=== PATIENT | male | born 2000 ===

== ENCOUNTER 2022-09-03 14:45 | Emergency (ER) | payer OTHER, SELFPAY ==
--- NOTE | ~2022-09-03 | XR_ITS ---
EXAMINATION: RIGHT FOOT AND ANKLE CLINICAL INFORMATION: Pain COMPARISON: None. TECHNIQUE: 3 views of the right foot and 2 views of the right ankle. FINDINGS: Views of the right foot demonstrate anterior dorsal talar beak consistent with previous or recent avulsion injury. Patient is status post previous ankle and foot surgery with one screw seen within the calcaneus and 2 screws seen within the talar bone as well as 2 screws within the distal right fibula as well as multiple metallic densities in the soft tissues anterior to the distal tibia. There is some edema about the surrounding tissues. There are calcific densities present distal to the tip of the fibula likely representing sequela of previous trauma. Ankle mortise appears intact. XR/XR foot RT min 3V IMPRESSION: Status post previous right foot and ankle surgery as described with no old studies available for comparison. Edema about the ankle, most prominent laterally. Talar beak consistent with avulsion injury about the dorsal distal talar bone with some overlying soft tissue. This could represent an acute or chronic injury.
--- NOTE | ~2022-09-03 | CT_ITS ---
EXAMINATION: CT ORBIT WITHOUT CONTRAST CLINICAL INFORMATION: Right eye pain. COMPARISON: None available. TECHNIQUE: Noncontrast multidetector CT imaging examination of the orbits is performed. Axial images and multiplanar reformatted images are reviewed. This CT examination was performed using dose optimization techniques as appropriate, variously including the following: *Automated exposure control *Adjustment of mA and/or kV according to patient size (this includes techniques or standardized protocols for targeted exams where dose is matched to indication/reason for exam; i.e. extremities or head) *Use of iterative reconstruction technique DLP: 172 mGy-cm FINDINGS: The globes and orbital rodriguez, including lamina papyracea, are intact. The orbital apex, optic canals, and retrobulbar fat planes are normal. The extraocular muscles have normal thickness. No imaging evidence of a preseptal or postseptal inflammatory process. The maxilla, mandible and temporomandibular joints are intact. Nasal bones, pterygoid plates and zygomatic arches are normal. There is a small mucous retention cyst along the posterior wall of the right maxillary sinus. Small amount mucus is present within a right anterior ethmoid air cell. Otherwise, the paranasal sinuses are well aerated and without air-fluid levels. No acute sinusitis. The ostiomeatal units are patent. There are no inflammatory changes within the nasal cavity. There is a left-sided aldo bullosa. There is mild right nasal septal deviation. The visualized intracranial compartment is normal. CT/CT orbit BI wo IV con IMPRESSION: No specific source of pain is identified. No evidence of an orbital fracture. Also, no evidence of a preseptal or postseptal inflammatory process.
--- NOTE | ~2022-09-03 | XR_ITS ---
EXAMINATION: RIGHT FOOT AND ANKLE CLINICAL INFORMATION: Pain COMPARISON: None. TECHNIQUE: 3 views of the right foot and 2 views of the right ankle. FINDINGS: Views of the right foot demonstrate anterior dorsal talar beak consistent with previous or recent avulsion injury. Patient is status post previous ankle and foot surgery with one screw seen within the calcaneus and 2 screws seen within the talar bone as well as 2 screws within the distal right fibula as well as multiple metallic densities in the soft tissues anterior to the distal tibia. There is some edema about the surrounding tissues. There are calcific densities present distal to the tip of the fibula likely representing sequela of previous trauma. Ankle mortise appears intact. XR/XR ankle RT min 3V IMPRESSION: Status post previous right foot and ankle surgery as described with no old studies available for comparison. Edema about the ankle, most prominent laterally. Talar beak consistent with avulsion injury about the dorsal distal talar bone with some overlying soft tissue. This could represent an acute or chronic injury.
[2022-09-03 14:52] VITALS: BP 130/78; BP 139/66; PULSE 100; PULSE 90; RESP 18; TEMP 36.7; O2SAT 98; O2SAT 99; BMI 25.5
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
[2022-09-03] MEDS: Acetaminophen 325 MG TABLET 975 MG PO (17:52)
--- NOTE | 2022-09-03 17:53 | PC.NURSE ---
pt medicated per MAY- for 11/05 right eyepain/right ankle pain
== END 2022-09-03 18:50 | disposition home or self-care (01) ==
PROVIDERS: Emergency Provider Emergency Medicine
DX: S05.01XA Injury of conjunctiva and corneal abrasion without foreign body, right eye, initial encounter (principal); S92.151A Displaced avulsion fracture (chip fracture) of right talus, initial encounter for closed fracture; W22.8XXA Striking against or struck by other objects, initial encounter; Y93.89 Activity, other specified; Y92.512 Supermarket, store or market as the place of occurrence of the external cause; Y99.0 Civilian activity done for income or pay
CPT/HCPCS: 70480; 73610; 73630; 99283; 99284

== ENCOUNTER 2022-09-07 16:12 | Emergency (ER) | payer OTHER, SELFPAY ==
--- NOTE | ~2022-09-07 | XR_ITS ---
Examination: XR ankle RT min 3V, XR foot RT min 3V Indication: screws bothering patient Comparison: 09/03/2022 Technique: 3 views of the foot including a lateral view of the foot and ankle with 2 additional views of the right ankle Findings: Postoperative changes is seen. There are 2 intramedullary screws seen through the distal fibula with 2 additional screws seen along the lateral aspect of the talus and additional screw in the calcaneus with multiple small zana along the anterior aspect of the proximal tibia. There is no evidence for hardware failure or surrounding lucency. Bones are normal anatomic alignment. Well-corticated ossifications inferior to the lateral malleolus are again noted. Significant soft tissue swelling is seen laterally about the ankle XR/XR ankle RT min 3V Impression: Postoperative changes to the ankle. Significant soft tissue swelling laterally. No acute fracture or dislocation. No evidence for hardware failure.
--- NOTE | ~2022-09-07 | XR_ITS ---
Examination: XR ankle RT min 3V, XR foot RT min 3V Indication: screws bothering patient Comparison: 09/03/2022 Technique: 3 views of the foot including a lateral view of the foot and ankle with 2 additional views of the right ankle Findings: Postoperative changes is seen. There are 2 intramedullary screws seen through the distal fibula with 2 additional screws seen along the lateral aspect of the talus and additional screw in the calcaneus with multiple small zana along the anterior aspect of the proximal tibia. There is no evidence for hardware failure or surrounding lucency. Bones are normal anatomic alignment. Well-corticated ossifications inferior to the lateral malleolus are again noted. Significant soft tissue swelling is seen laterally about the ankle XR/XR foot RT min 3V Impression: Postoperative changes to the ankle. Significant soft tissue swelling laterally. No acute fracture or dislocation. No evidence for hardware failure.
[2022-09-07 16:17] VITALS: BP 112/70; BP 130/77; PULSE 66; PULSE 69; RESP 18; TEMP 36.6; O2SAT 97; O2SAT 98; BMI 24.4
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
[2022-09-07] MEDS: traMADoL HCL 50 MG TABLET PO (18:01)
== END 2022-09-07 19:21 | disposition home or self-care (01) ==
PROVIDERS: Emergency Provider Emergency Medicine
DX: M25.571 Pain in right ankle and joints of right foot (principal); G89.29 Other chronic pain; Z98.890 Other specified postprocedural states
CPT/HCPCS: 73610; 73630; 99283

== ENCOUNTER 2022-09-24 09:16 | Outpatient (REF) | payer OTHER, SELFPAY ==
--- NOTE | ~2022-09-24 | XR_ITS ---
EXAMINATION: XR ANKLE, RIGHT CLINICAL INFORMATION: Pain. COMPARISON: Radiographs dated 09/07/2022. TECHNIQUE: AP, lateral, and mortise views of the right ankle. FINDINGS: Bony alignment and mineralization are normal. The ankle mortise is intact. No fracture or dislocation is seen. There are orthopedic screws applied to the lateral malleolus and the lateral talus and calcaneus. No hardware failure or loosening is noted. Surgical clips and zana are seen. There is no significant ankle effusion. Boehler's angle is normal. No focal soft tissue gas or foreign body is seen. There is soft tissue swelling adjacent to the lateral malleolus. XR/XR ankle RT min 3V IMPRESSION: There is intact orthopedic hardware applied to the right ankle, as detailed. No fracture, dislocation or right ankle joint effusion is noted.
== END 2022-09-24 09:17 | disposition home or self-care (01) ==
LOC: HO.HOSX 09:16
PROVIDERS: Visit Provider Physician Assistant
DX: S93.401A Sprain of unspecified ligament of right ankle, initial encounter (principal); Z96.9 Presence of functional implant, unspecified
CPT/HCPCS: 73610; 99202

== ENCOUNTER 2022-09-29 20:12 | Emergency (ER) | payer OTHER, SELFPAY ==
[2022-09-29 20:20] VITALS: BP 128/78; PULSE 90; O2SAT 98
== END 2022-09-29 21:27 | disposition left against medical advice (07) ==
LOC: HO.ED 21:25
PROVIDERS: Emergency Provider Emergency Medicine
DX: Z53.21 Procedure and treatment not carried out due to patient leaving prior to being seen by health care provider (principal)

== ENCOUNTER 2022-10-22 08:22 | Outpatient (REF) | payer OTHER, SELFPAY | END 2022-10-22 08:23 | disposition home or self-care (01) | LOC: HO.HOSX 08:22 | PROVIDERS: Visit Provider Physician Assistant | DX: Z13.89 Encounter for screening for other disorder (principal) ==

== ENCOUNTER 2023-02-21 21:24 | Emergency (ER) | payer OTHER, SELFPAY ==
[2023-02-21 21:46] VITALS: BP 112/48; PULSE 83; RESP 16; TEMP 36.7; O2SAT 97; BMI 27.2
== END 2023-02-21 23:36 | disposition left against medical advice (07) ==
LOC: HO.ED 23:35
PROVIDERS: Emergency Provider Emergency Medicine
DX: H01.9 Unspecified inflammation of eyelid (principal)
CPT/HCPCS: 99281

== ENCOUNTER 2023-07-14 14:34 | Outpatient (AMB) | payer OTHER, SELFPAY ==
[2023-07-14 14:44] VITALS: BP 112/70; PULSE 77; TEMP 37.2; O2SAT 98; BMI 26.1
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
== END 2023-07-14 15:14 | disposition home or self-care (01) ==
PROVIDERS: Visit Provider Nurse Practitioner Family
DX: S93.401A Sprain of unspecified ligament of right ankle, initial encounter (principal); Z96.9 Presence of functional implant, unspecified
CPT/HCPCS: 96372; 99203; J1885

== ENCOUNTER 2023-07-14 15:09 | Outpatient (REF) | payer OTHER, SELFPAY ==
--- NOTE | ~2023-07-14 | XR_ITS ---
EXAMINATION: XR ANKLE, RIGHT CLINICAL INFORMATION: Right ankle pain COMPARISON: Radiographs 09/24/2022 TECHNIQUE: AP, lateral, and mortise views of the right ankle. FINDINGS: No acute fracture or malalignment. Postsurgical changes with intact hardware. Anterolateral soft tissue swelling. Small chronic ossification at the tip of the lateral malleolus. Mild talonavicular osteoarthritis. XR/XR ankle RT min 3V IMPRESSION: 1. Anterolateral soft tissue swelling with no acute fracture or malalignment. 2. Postsurgical changes with intact hardware.
== END 2023-07-14 15:10 | disposition home or self-care (01) ==
LOC: HO.HMGCX 15:09
PROVIDERS: Visit Provider Nurse Practitioner Family
DX: S93.401A Sprain of unspecified ligament of right ankle, initial encounter (principal); Z96.9 Presence of functional implant, unspecified
CPT/HCPCS: 73610

== ENCOUNTER 2023-07-21 16:05 | Emergency (ER) | payer OTHER, SELFPAY ==
[2023-07-21 16:13] VITALS: BP 127/84; PULSE 82; O2SAT 100
[2023-07-21 16:16] VITALS: BP 113/68; PULSE 74; RESP 18; TEMP 36.4; O2SAT 97; BMI 23.8
--- NOTE | 2023-07-21 16:16 | ED.GENADULT ---
HPI - General Adult General Chief complaint: Allergic Reaction Stated complaint: ate pear and felt like he was having a reaction Related Data Previous Rx's ?Medication ?Instructions ?Recorded acetaminophen 325 mg capsule 325 mg PO QID PRN pain #30 caps 09/03/22 (Tylenol) ibuprofen 600 mg tablet 600 mg PO Q6H PRN pain #30 tabs 09/03/22 tramadol 50 mg tablet 50 mg PO BID PRN pain #6 tabs 09/07/22 clonidine HCl 0.1 mg tablet 0.1 mg PO DAILY #7 tabs 08/24/23 Allergies Allergy/AdvReac Type Severity Reaction Status Date / Time dog dander [dogs] Allergy Facial Verified 08/24/23 08:54 Swelling PMFSH Past Medical History Medical History Asthma Social History Social History Patient Tobacco Use Status: Never used Tobacco Use of substances other than those prescribed or required for medical reasons: Yes Substance Use Type: Painkillers Substance Use Frequency: Daily Last Used Substance: Days (ago) Advance Directives: No Do you have a plan to hurt others: No Plan Current occupational status: unemployed Current occupation: right hand Physical Exam ED Vital Signs: BMI result Body Mass Index 23.8 Course Course Course Narrative: This is an RME: Additional HPI, ROS, PE not included below will be deferred to primary provider. 22 yo m presents with itchy throat and mouth after eating pear. Denies cp, fevers, chills. Medications Administered Discontinued Medications Generic Name Dose Route Start Last Admin Trade Name Freq PRN Reason Stop Dose Admin Dexamethasone Sodium Phosphate 10 mg 07/21/23 16:18 07/21/23 16:23 Dexamethasone Sod Phosphate 10 Mg/Ml Vial IVPUSH 07/21/23 16:19 10 mg ONCE ONE Administration Diphenhydramine HCl 50 mg 07/21/23 16:18 07/21/23 16:22 Diphenhydramine Hcl 25 Mg Capsule PO 07/21/23 16:19 50 mg ONCE ONE Administration Discharge Plan Discharge Clinical Impression: Eloped from emergency department Patient Disposition: Left W/O Completing Treatment Prescriptions: No Action tramadol 50 mg tablet 50 mg PO BID PRN (Reason: pain) Qty: 6 0RF ibuprofen 600 mg tablet 600 mg PO Q6H PRN (Reason: pain) Qty: 30 0RF acetaminophen [Tylenol] 325 mg capsule 325 mg PO QID PRN (Reason: pain) Qty: 30 0RF clonidine HCl 0.1 mg tablet 0.1 mg PO DAILY Qty: 7 0RF Discharge Date/Time: 07/21/23 18:50
[2023-07-21] MEDS: diphenhydrAMINE HCL 25 MG CAPSULE 50 MG PO (16:22)
[2023-07-21] MEDS: dexAMETHasone sod phosphate 10 MG/ML VIAL IVPUSH (16:23)
== END 2023-07-21 18:50 | disposition left against medical advice (07) ==
PROVIDERS: Emergency Provider Emergency Medicine
DX: K14.8 Other diseases of tongue (principal)
CPT/HCPCS: 99281; 99283; J1100

== ENCOUNTER 2023-08-24 08:45 | Emergency (ER) | payer OTHER, SELFPAY ==
--- NOTE | 2023-08-24 | ECG_ITS ---
Test Reason : overdose Blood Pressure : / mmHG Vent. Rate : 084 BPM Atrial Rate : 084 BPM P-R Int : 140 ms QRS Dur : 092 ms QT Int : 352 ms P-R-T Axes : 061 051 018 degrees QTc Int : 415 ms Normal sinus rhythm Normal ECG No previous ECGs available Referred By: Generic ED Physician Electronically Signed By:MARJORIE PADRON
[2023-08-24 08:52] VITALS: BP 133/85; PULSE 92; RESP 18; TEMP 36.8; O2SAT 99; BMI 26.1
--- NOTE | 2023-08-24 09:10 | ED_ITS ---
HPI - General Adult General Chief complaint: General Medical Stated complaint: overdose ? Time Seen by Provider: 08/24/23 09:10 Source: patient Mode of arrival: ambulatory Limitations: no limitations History of Present Illness ED Provider: Estela Barksdale NP HPI narrative: Patient is a 22-year-old history presenting to the emergency with palpitations and feeling anxious after his second dose of methadone this morning. Patient reports since January of 2023 he has been buying [address] off [address], using 10 to 15 of these per day. The day before yesterday he stopped using them cold turkey. Yesterday he went to [facility] seeking assistance with detox and was started on methadone, given 40 mg in the ED. this morning he went to in clinic and received another 40 mg. Reports that yesterday he felt fine but today he felt anxious, lightheaded, palpitations and ?out of it,? difficulty concentrating. He does report history of anxiety and panic attacks. States yesterday at [facility] he received clonidine with his methadone, and today he did not take any clonidine, unsure if this is related to his symptoms. MD complaint: lightheaded, anxious, palpitations Onset (ago): hour(s) Associated symptoms: diaphoresis and shortness of breath Related Data Previous Rx's ?Medication ?Instructions ?Recorded acetaminophen 325 mg capsule 325 mg PO QID PRN pain #30 caps 09/03/22 (Tylenol) ibuprofen 600 mg tablet 600 mg PO Q6H PRN pain #30 tabs 09/03/22 tramadol 50 mg tablet 50 mg PO BID PRN pain #6 tabs 09/07/22 clonidine HCl 0.1 mg tablet 0.1 mg PO DAILY #7 tabs 08/24/23 Allergies Allergy/AdvReac Type Severity Reaction Status Date / Time dog dander [dogs] Allergy Facial Verified 08/24/23 08:54 Swelling Review of Systems 2 Review of Systems: As per HPI Yes all other systems are reviewed and are negative Constitutional: Constitutional: Reports as per HPI [facility] Past Medical History Medical History Asthma Social History Social History Patient Tobacco Use Status: Never used Tobacco Use of substances other than those prescribed or required for medical reasons: Yes Substance Use Type: Painkillers Substance Use Frequency: Daily Last Used Substance: Days (ago) Advance Directives: No Do you have a plan to hurt others: No Plan Current occupational status: unemployed Current occupation: right hand Physical Exam ED Vital Signs: Vital Signs - 24 hr 08/24/23 08:52 08/24/23 09:34 08/24/23 11:11 Temperature 98.3 F 97.9 F Pulse Rate 92 74 Respiratory Rate 18 18 Blood Pressure 133/85 133/85 109/70 Pulse Oximetry 99 93 Oxygen Delivery Method Room Air Room Air BMI result Body Mass Index 26.1 Vital signs have been reviewed and appear to be correct. Blood pressure normal. Heart rate normal. Respiratory rate normal. Temperature normal. Oxygen saturation normal. Const General: cooperative, healthy appearing and no acute distress Orientation/consciousness: oriented to person, oriented to place, oriented to time and patient oriented x3 Limitations: no limitations HENMT Head: Yes normocephalic and Yes atraumatic Ears: external ears normal General nose exam: Normal external nose present Face and sinus: Yes face symmetric Mouth: oropharynx normal and moist mucous membranes Throat: Yes uvula midline Eyes Pupils: Equal, round and reactive pupils present Neck Neck: Yes normal visual inspection and Yes supple Resp Effort & Inspection: normal respiratory effort and able to speak in complete sentences Auscultation: clear to auscultation bilaterally Cardio Rate: regular rate Rhythm: regular rhythm Heart sounds: S1 normal heart sound present and S2 normal heart sound present GI Palpation (GI): Soft to palpation and nontender Auscultation: normoactive bowel sounds General: Yes no CVA tenderness Back/Spine/Pelvis Back: no CVA tenderness Skin General skin exam: elasticity normal and turgor normal Neuro General: oriented to person, oriented to place, oriented to time, patient oriented x3, moves all extremities, no focal motor deficits and CN's II-XI intact bilaterally Cranial nerves: Yes Equal, round and reactive pupils present Cognition (Neuro): normal cognition Extrem General: Yes full ROM, Yes no pedal edema and Yes no calf tenderness Psych Mental Status: mental status grossly normal Speech and movement: Pressured speech present Affect: Anxious affect present Attitude: cooperative Thought process: Normal thought process present Thought content: suicidality, no homicidality, no hallucinations and No Depressive thoughts present Insight: Fair insight present (Psych) Judgement: Fair judgement present (Psych) Medications Administered Discontinued Medications Generic Name Dose Route Start Last Admin Trade Name Raymond PRN Reason Stop Dose Admin Clonidine HCl 0.1 mg 08/24/23 09:23 08/24/23 09:34 Clonidine Hcl 0.1 Mg Tablet PO 08/24/23 09:24 0.1 mg ONCE ONE Administration Protocol Medical Decision Making Medical Decision Making [facility] Narrative: Patient is a 22-year-old history presenting to the emergency with palpitations and feeling anxious after his second dose of methadone this morning. On exam patient is awake, A+Ox3, VS WNL, afebrile, normal neurological exam without focal deficits, physical exam findings as above. Given reported symptoms and physical exam findings, initial differential includes acute anxiety, adverse medication reaction, withdrawal symptoms. Labs unremarkable. EKG shows normal sinus rhythm. Patient reported that his symptoms improved at [facility] after a dose of clonidine. Patient medicated with clonidine in the emergency department with good improvement in symptoms. Patient seen by Hyacinth Pascal NP from addiction medicine who agrees that symptoms are most likely due to acute anxiety. Will send prescription for short course of clonidine to the pharmacy. Patient instructed to continue following up at methadone clinic as planned. Patient does not have a PCP, given resources to establish care with 1. Return precautions discussed at bedside. Patient verbalized understanding of and agreement with plan. Differential Diagnosis Differential Diagnoses: The differential diagnosis associated with the presentation includes As per [facility] Consult Healthcare Provider Management of the patient was discussed with: Program Support Clerk (Hyacinth Pascal NP) Lab Data [facility] Lab Attestation statement: I reviewed the patient's lab results. As per [facility] 08/24/23 09:40 08/24/23 09:40 Labs: Lab Results 08/24/23 Range/Units 09:40 WBC 8.5 (4.8-10.8) X10*3/uL RBC 4.60 (4.60-5.80) X10*6/uL Hgb 14.2 (14.0-18.0) g/dl Hct 39.6 L (42.0-52.0) % MCV 86.1 (80.0-98.0) fL MCH 30.9 (27.0-33.0) pg MCHC 35.9 (31.0-36.0) g/dl RDW 11.9 (11.0-16.0) % Plt Count 262 (160-400) X10*3/uL MPV 9.5 (9.4-12.4) fL Immature Gran % (Auto) 0.9 H (0.0-0.4) % Neut % (Auto) 53.0 (45-73) % Lymph % (Auto) 30.0 (20-40) % [place] % (Auto) 12.0 H (2-11) % Eos % (Auto) 3.2 (0-4) % Baso % (Auto) 0.9 (0-2) % Lymph # (Auto) 2.6 (1.2-4.9) X10*3/uL [place] # (Auto) 1.0 (0.1-1.2) X10*3/uL Eos # (Auto) 0.3 (0.0-0.4) X10*3/uL Baso # (Auto) 0.1 (0.0-0.2) X10*3/uL Abs Immat Gran (auto) 0.08 H (0.00-0.03) X10*3/uL Absolute Neuts (auto) 4.5 (2.0-8.3) x10*3/uL Absolute Nucleated RBC 0.000 (0.0-0.012) X10*3/uL Nucleated RBC % (auto) 0.0 (0.0-0.2) /100WBC Sodium 139 (135-145) mmol/L Potassium 4.0 (3.3-5.1) mmol/L Chloride 109 H (96-108) mmol/L Carbon Dioxide 23 (22-29) mmol/L Anion Gap 11 L (12-20) BUN 19 H (9-16) mg/dL Creatinine 0.91 (0.5-1.4) mg/dL Estim Creat Clear Calc 121.0 Estimated GFR > 60 Random Glucose 88 (60-115) mg/dL Calcium 9.0 (8.4-10.2) mg/dL Total Bilirubin 0.3 (0.0-1.0) mg/dL AST 24 (5-37) U/L ALT 24 (0-40) U/L Alkaline Phosphatase 83 (39-117) U/L Troponin I High Sens < 2.7 (<3.5-35.0) ng/L Total Protein 6.9 (6.5-8.0) g/dL Albumin 4.4 (3.5-5.0) g/dL Independent Interpretation I performed an independent interpretation of an: EKG (normal sinus rhythm, rate 84bpm, normal pr interval and QTc, no evidence of STEMI) External Record Review External record reviewed: Inpatient record, Office record and Outpatient record Prescription Management I considered prescription management with: Other Discharge Plan Discharge Clinical Impression: Acute anxiety Patient Disposition: Home, Self-Care Instructions: Panic Disorder (ED), Anxiety (ED) Additional Instructions: You were evaluated in the emergency department today for symptoms that were likely due to acute anxiety. Your evaluation did not show evidence of conditions requiring emergent medical treatment at this time. You are being prescribed clonidine for anxiety which you can use as prescribed. Please keep your appointment tomorrow with the and methadone Clinic. You will be seeing the doctor there on . It is also important that you establish care with a primary care provider. Please use the resources provided to set this up. Return to the emergency department if you develop chest pain, difficulty breathing or any other concerning symptoms. Prescriptions: New clonidine HCl 0.1 mg tablet 0.1 mg PO DAILY Qty: 7 0RF No Action tramadol 50 mg tablet 50 mg PO BID PRN (Reason: pain) Qty: 6 0RF ibuprofen 600 mg tablet 600 mg PO Q6H PRN (Reason: pain) Qty: 30 0RF acetaminophen [Tylenol] 325 mg capsule 325 mg PO QID PRN (Reason: pain) Qty: 30 0RF Stand Alone Forms: Work/School Release Print Language: Kiswahili
[2023-08-24 09:34] VITALS: BP 133/85
[2023-08-24] MEDS: cloNIDine HCL 0.1 MG TABLET PO (09:34)
[2023-08-24 09:43] LABS: MANUAL DIFF FLAG NO
[2023-08-24 09:44] LABS: Basophils Absolute Auto 0.1 X10*3/uL (0.0-0.2); Basophils Percent Auto 0.9 % (0-2); Eosinophils Absolute Auto 0.3 X10*3/uL (0.0-0.4); Eosinophils Percent Auto 3.2 % (0-4); Hematocrit 39.6 % (42.0-52.0); Hemoglobin 14.2 g/dl (14.0-18.0); Imm Gran Abs Auto 0.08 X10*3/uL (0.00-0.03); Imm Gran Pct Auto 0.9 % (0.0-0.4); Lymphocytes Absolute Auto 2.6 X10*3/uL (1.2-4.9); Mean Corpuscular HGB Conc 35.9 g/dl (31.0-36.0); Mean Corpuscular Hemoglobin 30.9 pg (27.0-33.0); Mean Corpuscular Volume 86.1 fL (80.0-98.0); Mean Platelet Volume 9.5 fL (9.4-12.4); Neutrophils Absolute Auto 4.5 x10*3/uL (2.0-8.3); Platelet Count 262 X10*3/uL (160-400); Red Cell Distribution Width 11.9 % (11.0-16.0); White Blood Count 8.5 X10*3/uL (4.8-10.8)
[2023-08-24 09:59] LABS: Alanine Aminotransferase 24 U/L (0-40); Albumin Level 4.4 g/dL (3.5-5.0); Alkaline Phosphatase 83 U/L (39-117); Anion Gap 11 (12-20); Aspartate Amino Transferase 24 U/L (5-37); Bilirubin Total 0.3 mg/dL (0.0-1.0); Blood Urea Nitrogen 19 mg/dL (9-16); Carbon Dioxide 23 mmol/L (22-29); Chloride 109 mmol/L (96-108); Estimated Glomerular Filt Rate > 60; Glucose Random 88 mg/dL (60-115); Sodium 139 mmol/L (135-145); Total Protein 6.9 g/dL (6.5-8.0)
[2023-08-24 10:12] LABS: Troponin-I High Sensitivity < 2.7 ng/L (<3.5-35.0)
[2023-08-24 11:11] VITALS: BP 109/70; PULSE 74; RESP 18; TEMP 36.6; O2SAT 93
[2023-08-24 11:23] VITALS: BP 109/70; PULSE 74; RESP 18; TEMP 36.6; O2SAT 98
== END 2023-08-24 11:28 | disposition home or self-care (01) ==
PROVIDERS: Registered Nurse Emergency; Emergency Provider Emergency Medicine; PCP Pediatrics
DX: R00.2 Palpitations (principal); F41.9 Anxiety disorder, unspecified; F11.90 Opioid use, unspecified, uncomplicated
CPT/HCPCS: 36415; 80053; 84484; 85025; 93005; 99283; 99284

== ENCOUNTER → 2023-08-24 09:01 | Outpatient (BNV) | payer OTHER, SELFPAY | PROVIDERS: Emergency Provider Emergency Medicine; PCP Pediatrics; Visit Provider Internal Medicine | DX: R00.2 Palpitations (principal) | CPT/HCPCS: 93010 ==

== ENCOUNTER 2024-02-17 09:25 | Outpatient (AMB) | payer MEDICARE, SELFPAY ==
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
[2024-02-17 09:39] VITALS: BP 104/70; PULSE 73; O2SAT 99; BMI 28.0
== END 2024-02-17 10:46 | disposition home or self-care (01) ==
PROVIDERS: PCP Physician Assistant Medical; Visit Provider Physician Assistant Medical
DX: M25.571 Pain in right ankle and joints of right foot (principal); Z98.890 Other specified postprocedural states; R73.9 Hyperglycemia, unspecified; K59.00 Constipation, unspecified; J32.9 Chronic sinusitis, unspecified; K92.1 Melena; F43.10 Post-traumatic stress disorder, unspecified; F41.9 Anxiety disorder, unspecified; F32.A Depression, unspecified; Z76.5 Malingerer [conscious simulation]

== ENCOUNTER → 2024-02-17 09:25 | Outpatient (BNVA) | payer MEDICARE, SELFPAY | PROVIDERS: PCP Physician Assistant Medical; Visit Provider Physician Assistant Medical | DX: M25.571 Pain in right ankle and joints of right foot (principal); E11.65 Type 2 diabetes mellitus with hyperglycemia; F41.9 Anxiety disorder, unspecified; F32.A Depression, unspecified; F43.10 Post-traumatic stress disorder, unspecified; K59.00 Constipation, unspecified; J32.9 Chronic sinusitis, unspecified; K92.1 Melena; Z76.5 Malingerer [conscious simulation]; Z98.890 Other specified postprocedural states | CPT/HCPCS: 36415; 80053; 83036; 84443; 85025; 96127; 96160; 99202 ==

== ENCOUNTER 2024-02-17 11:11 | Outpatient (REF) | payer MEDICARE, SELFPAY ==
[2024-02-17 14:13] LABS: MANUAL DIFF FLAG NO
[2024-02-17 14:19] LABS: Basophils Absolute Auto 0.1 X10*3/uL (0.0-0.2); Basophils Percent Auto 0.7 % (0-2); Eosinophils Absolute Auto 0.7 X10*3/uL (0.0-0.4); Eosinophils Percent Auto 8.1 % (0-4); Hematocrit 38.4 % (42.0-52.0); Hemoglobin 13.3 g/dl (14.0-18.0); Imm Gran Abs Auto 0.04 X10*3/uL (0.00-0.03); Imm Gran Pct Auto 0.4 % (0.0-0.4); Lymphocytes Absolute Auto 1.8 X10*3/uL (1.2-4.9); Lymphocytes Percent Auto 20.6 % (20-40); Mean Corpuscular HGB Conc 34.6 g/dl (31.0-36.0); Mean Corpuscular Hemoglobin 27.7 pg (27.0-33.0); Mean Corpuscular Volume 79.8 fL (80.0-98.0); Mean Platelet Volume 9.9 fL (9.4-12.4); Monocytes Absolute Auto 0.8 X10*3/uL (0.1-1.2); Neutrophils Absolute Auto 5.5 x10*3/uL (2.0-8.3); Neutrophils Percent Auto 61.2 % (45-73); Platelet Count 313 X10*3/uL (160-400); Red Blood Count 4.81 X10*6/uL (4.60-5.80); Red Cell Distribution Width 12.3 % (11.0-16.0); White Blood Count 8.9 X10*3/uL (4.8-10.8)
[2024-02-17 14:31] LABS: Estimated Average Glucose 103 mg/dL; Hemoglobin A1C 117.7604 umol/L; Hemoglobin A1c % 5.2 % (<6.0)
[2024-02-17 14:46] LABS: Alanine Aminotransferase 36 U/L (0-40); Albumin Level 4.1 g/dL (3.5-5.0); Alkaline Phosphatase 105 U/L (39-117); Anion Gap 12 (12-20); Aspartate Amino Transferase 26 U/L (5-37); Bilirubin Total 0.2 mg/dL (0.0-1.0); Blood Urea Nitrogen 10 mg/dL (9-16); Calcium 9.9 mg/dL (8.4-10.2); Carbon Dioxide 27 mmol/L (22-29); Chloride 103 mmol/L (96-108); Estimated Glomerular Filt Rate > 60; Glucose Random 81 mg/dL (60-115); Potassium 3.8 mmol/L (3.3-5.1); Sodium 138 mmol/L (135-145); Total Protein 7.1 g/dL (6.5-8.0)
[2024-02-17 15:05] LABS: TSH reflex Free T4 1.57 uIU/mL (0.32-4.0)
== END 2024-02-17 11:12 | disposition home or self-care (01) ==
LOC: HO.WFDLDS 11:11
PROVIDERS: Visit Provider Physician Assistant Medical
DX: Z13.89 Encounter for screening for other disorder (principal)
CPT/HCPCS: 36415; 80053; 83036; 84443; 85025

== ENCOUNTER 2024-02-29 11:10 | Outpatient (AMB) | payer MEDICARE, SELFPAY ==
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
[2024-02-29 11:17] VITALS: BP 114/56; PULSE 83; O2SAT 99; BMI 28.8
== END 2024-02-29 11:53 | disposition home or self-care (01) ==
PROVIDERS: PCP Pediatrics; Referring Provider Physician Assistant Medical; Visit Provider Nurse Practitioner Family
DX: Z96.9 Presence of functional implant, unspecified (principal); M25.571 Pain in right ankle and joints of right foot; Z98.890 Other specified postprocedural states
CPT/HCPCS: 99204; G2211

== ENCOUNTER → 2024-02-29 11:10 | Outpatient (BNVA) | payer MEDICARE, SELFPAY | PROVIDERS: PCP Pediatrics; Referring Provider Physician Assistant Medical; Visit Provider Nurse Practitioner Family | DX: M25.571 Pain in right ankle and joints of right foot (principal); Z96.9 Presence of functional implant, unspecified; Z98.890 Other specified postprocedural states | CPT/HCPCS: 99202 ==

== ENCOUNTER 2024-03-30 08:58 | Outpatient (AMB) | payer MEDICARE, MEDICAID, SELFPAY ==
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
[2024-03-30 09:10] VITALS: BP 134/74; PULSE 82; RESP 14; O2SAT 97; BMI 29.3
== END 2024-03-30 09:51 | disposition home or self-care (01) ==
PROVIDERS: PCP Physician Assistant Medical; Visit Provider Physician Assistant Medical
DX: M25.571 Pain in right ankle and joints of right foot (principal); Z98.890 Other specified postprocedural states; K59.00 Constipation, unspecified; J32.9 Chronic sinusitis, unspecified; K92.1 Melena; F43.10 Post-traumatic stress disorder, unspecified; F41.9 Anxiety disorder, unspecified; F32.A Depression, unspecified

== ENCOUNTER → 2024-03-30 08:58 | Outpatient (BNVA) | payer MEDICARE, SELFPAY | PROVIDERS: PCP Physician Assistant Medical; Visit Provider Physician Assistant Medical | DX: M25.571 Pain in right ankle and joints of right foot (principal); K59.00 Constipation, unspecified; J32.9 Chronic sinusitis, unspecified; K92.1 Melena; F43.10 Post-traumatic stress disorder, unspecified; F41.9 Anxiety disorder, unspecified; F32.A Depression, unspecified; F11.20 Opioid dependence, uncomplicated; Z87.81 Personal history of (healed) traumatic fracture; Z98.890 Other specified postprocedural states | CPT/HCPCS: 96127; 99212 ==

== ENCOUNTER 2024-04-09 13:00 | Emergency (ER) | payer MEDICARE, MEDICAID, SELFPAY ==
--- NOTE | ~2024-04-09 | XR_ITS ---
CLINICAL HISTORY: constipation 1 view abdomen Comparison: None Findings: No pneumoperitoneum or pneumatosis. No abnormal calcifications. No acute fractures. IMPRESSION: Severe fecal retention within the colon. This document has been electronically signed by: Mercedes Hernandez MD on 04/09/2024 14:26:12
--- OUTSIDE RECORDS SUMMARY | 2024-04-09 13:02 | XMS_ITS | Continuity of Care Document ---
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 Name Role Phone Yehuda Burger BA Unavailable Unavailable Allergies, Adverse Reactions, Alerts Substance Reaction Status Criticality No Known Allergies Active No Inform ation Medications Medication Instructions Dosage Effective Dates (start - stop) Status Comments lithium carbonate ER 450 mg tablet,extended release take 1 tabs by oral route every bedtime 1 tabs - Active escitalopram 10 mg tablet take 1 tablet by oral route every day in the morning - Active Do not dispense to patient, please hold for VNA or patients father Depakote ER 500 mg tablet,extended release take [...] Location Reason(s) For Visit Diagnoses Date Provider [facility], [address] [place] [address], [address], tel:[phone] OP A Bris 225 NMS No Information Tao Blackman. [address] [place] [address], [address] [place] [address], . tel:[phone], [address] [place] [address], [facility], tel:[phone] OP A Wtb[facility] [address] Medication Management (chief complaint)Ps ychiatric (chief complaint) Personal hx of traumatic brain injury Иван Candelarian. [address] [place] [address], [address] [place] [address], [place]. tel:[phone] [employer], [address] [place] [address], [facility], [place] tel:[phone] [facility] [address] MAT (*Medication Assisted [place]) (chief complaint) Encounter for screening for depression [place]. [address] [place] [address], [address] [place] [address], . tel:[phone] [employer], [address] [place] [address], [facility], tel:[phone] IOP A [facility] [address] Medication Management (chief complaint)Ps ychiatric (chief complaint) Personal hx of traumatic brain injury Иван Candelarian. [address] [place] [address], [address] [place] [address], [place]. tel:[phone] [employer], [address] [place] [address], [facility], tel:[phone] IOP A [facility] [address] Rupesh Ashley. [address] [place] [address], [address] [place] [address], [place]. tel:[phone] [employer], [address] [place] [address], [facility], [place] tel:[phone] IOP A [facility] [address] Gilberto Carter. [address] [place] [address], [address] [place] [address], [place]. tel:[phone], [address] [place] [address], [facility], [place] tel:[phone] IOP A [facility]tb[facility] [address] Flaco Enriquez. [address] [place] [address], [address] [place] [address], [place]. tel:[phone] [facility], [address] [place] [address], [facility], tel:[phone] IOP A [facility] [address] Medication Management (chief complaint)Ps ychiatric (chief complaint) Иван Rodriguez. [address] [place] [address], [address] [place] [address], [place]. tel:[phone] [facility], [address] [place] [address], [facility], tel:[phone] IOP A [facility] [address] Rupesh Ashley. [address] [place] [address], [address] [place] [address], [place]. tel:[phone] [facility], [address] [place] [address], [facility], tel:[phone] IOP [facility] [address] Cassi Edward. [address] [place] [address], [address] [place] [address], [place]. tel:[phone] [facility], [address] [place] [address], [facility], tel:[phone] IOP A [facility] [address] Flaco Enriquez. [address] [place] [address], [address] [place] [address], [place]. tel:[phone] [facility], [address] [place] [address], [facility], [place] tel:[phone] IOP A [facility] [address] Rupesh Ashley. [address] [place] [address], [address] [place] [address], [place]. tel:[phone] [facility], [address] [place] [address], [facility], [place] tel:[phone] [facility] [address] MAT (*Medication Assisted [place]) (chief complaint) Body mass index (BMI) 23.0-23.9, adult Yashira Lucero. [address] [place] [address], [address] [place] [address], . tel:[phone], [address] [place] [address], [facility], tel:[phone] OP A [facility] [address] Medication Management (chief complaint)Ps ychiatric (chief complaint) Personal hx of traumatic brain injury Иван Rodriguez. [address] [place] [address], [address] [place] [address], [place]. tel:[phone], [address] [place] [address], [facility], tel:[phone] IOP A [facility]tb[facility] [address] [facility]. [address] [place] [address], [address] [place] [address], [place]. tel:[phone], [address] [place] [address], [facility], tel:[phone] IOP A [facility]tb[facility] [address] [facility]. [address] [place] [address], [address] [place] [address], [place]. tel:[phone], [address] [place] [address], [facility], tel:[phone] IOP A [facility] [address] Telemaque Chelsey. [address] [place] [address], [address] [place] [address], [place]. tel:[phone] [employer], [address] [place] [address], [facility], [place] tel:[phone] [facility] [address] office visit (chief complaint)HEMALATHA Castro (*Medication Assisted [place]) (chief complaint) Encounter for screening for other metabolic disordersEncounter for STD screeningBody mass index (BMI) 22.0-22.9, adult Yashira Barker. [address] [place] [address], [address] [place] [address], [place]. tel:[phone] [facility], [address] [place] [address], [facility], tel:[phone] IOP A [facility] [address] Nadir Chacko. [address] [place] [address], [address] [place] [address], [place]. tel:[phone] [facility], [address] [place] [address], [facility], tel:[phone] IOP A [facility] [address] Nadir Chacko. [address] [place] [address], [id number], [place]. tel:[phone] [facility], [address] [place] [address], [facility], tel:[phone] OP A [facility]tb[facility] [address] Rajinder Mehta. [address] [place] [address], [address] [place] [address], [place]. tel:[phone] As per patient privacy policy some of the clinical information may not be visible. Family History Family Member Type Diagnosis Age At Onset No Information Payers Payer name Insurance type Covered republican ID Kathy hendersonpeggy(s) Chrystal Zainab [id number] Social History Type Description Quantity Date Captured Comments Alcohol Use Details Unknown Caffeine Use Details Unknown Tobacco Use Status No Information Smoking Status No Information Sex Male Sexual Orientation Straight or heterosexual Jun Gender Identity Male Chief Complaint And Reason For Visit No Information Plan Of Treatment Date Type Action Status Goal Depression scree libia. Due on due Goal Health Literacy Assessment. Due on due Goal Unhealthy drug u se screening. Due on due Goal Td vaccine. Due on due Goal Influenza vaccine. Due on due Goal HIV 1/0/2 Ag/Ab w/Rflx. Due on due Goal Hepatitis C scre ening. Due on due Goal Tdap. Due on due Goal HPV (1st). Due on due Goal Fluoride varnish application. Due on due Goal Health Literacy Assessment. Due on due Goal Hepatitis C scre ening. Due on due Goal Unhealthy drug u [...] Influenza vaccine. Due on due Goal HPV (). Due on due Goal Fluoride varnish application. Due on due Goal Health Literacy Assessment. Due on due Goal Unhealthy drug u se screening. Due on due Goal Tdap. Due on due Goal Health Literacy Assessment. Due on due Goal Fluoride varnish application. Due on due Goal Unhealthy drug u se screening. Due on due Goal Influenza vaccine. Due on due Goal HIV 1/0/2 Ag/Ab [...] Fluoride varnish application. Due on due Goal HPV (1st). Due [...] due Goal Tdap. Due on due Goal HPV (1st). Due [...] u se screening. Due on due Goal Influenza vaccine. Due [...] Fluoride varnish application. Due on due Goal HPV (1st). Due on due Goal Depression scree libia. Due on due Goal Influenza vaccine. Due on due Goal HIV 1/0/2 Ag/Ab [...] u se screening. Due on due Goal Influenza vaccine. Due on due Goal Unhealthy drug u se screening. Due on due Goal Health Literacy Assessment. Due on due Goal Fluoride varnish application. Due on due Goal Hepatitis C scre ening. Due on due Goal Influenza vaccine. Due on due Goal HIV 1/0/2 Ag/Ab w/Rflx. Due on due Goal Tdap. Due on due Goal Depression scree libia. Due on due Goal HPV (1st). Due on due Goal Lifestyle education regardin g diet completed Goal Tdap. Due on due Goal HPV (1st). Due [...] Goal HPV (1st). Due on due Goal HPV (1st). Due on due Goal Influenza vaccine. Due on due Goal Depression scree libia. Due on due Goal Fluoride varnish application. Due on due Goal Unhealthy drug u se screening. Due on due Goal Health Literacy Assessment. Due on due Goal HIV 1/0/2 Ag/Ab w/Rflx. Due on due Goal Tdap. Due on due Goal Hepatitis [...] Fluoride varnish application. Due on due Goal Lifestyle education regardin g diet completed Goal Fluoride varnish application. Due on due [...] Goal HPV (). Due on due Goal Depression scree libia. Due on due Goal Fluoride varnish application. Due on due Goal Influenza vaccine. Due on Ap due Goal Health Literacy Assessment. Due on due Goal Dietary manageme nt education, guidance, and counseling ordered Goal Lifestyle education regardin g diet ordered Goal Lifestyle education regardin g diet ordered Goal Dietary manageme nt education, guidance, and counseling ordered Goal Lifestyle education regardin g diet ordered Goal Lifestyle education regardin g diet ordered Goal Lifestyle education regardin g diet ordered Referral Ordered: Referrals: Neuropsychology - Adult [...] were called and he was taken to [facility]. He was released a few hours [...] that he forgot to get an updated Itmann level. He states that the [facility]NA gives the med sleeve to his father and his father admins the PM meds to him. This singer songwriter is requesting increase frequency to BID temporarily [...] this would not be appropriate for this singer songwriter to treat at this time until he [...] assess patient safety, status and medication efficacy. Itmann level ordered today and to be re [...] bearing.Patient was in psych unit twice in [place] in Apr 2021, most recent was suicide [...] until 04/2021 when he was hospitalized n [facility]. He states that he has been compliant [...] currently enrolled in the IOP program at [facility] and he identified this as a major [...] in MATx tx and receiving Naltrexone/Vivitrol through [facility]. He reported to this singer songwriter that he feels unstable . Patient reports [...] slit my throat . Denies an intent. Client Professional Pepe joined appointment to assist in evaluation [...] term doses of medications (as reviewed with Gut Puller, Dr. Chris), patients father to picker tender medications from the pharmacy, keep them locked [...] of Depakote 250 mg BID, sent to [facility], not picked up by patient or father as father was unable to come to [facility]. TW spoke with patients father who requested that medications be sent to [facility] on [address] in [place]. TW Advised patients father, Urbano, (KAYLEEN on file) that after pharmacology review of this case with Gut Puller, Dr. Chris, medication regimen would be as follows: 5 days worth of Lexapro 10 mg once daily in the AM, [address] 250 mg once daily in the AM, 5 days worth of Itmann ER 300 mg once daily at bedtime. Patients father verbalized understanding of medication regimen. Patients father in agreement with, and verbalized understanding of, the following plan: father to picker tender medications from the pharmacy, keep them locked [...] to Body mass index [BMI] 22.0-22.9, adult Lifestyle education regarding di et Related to Body mass index [BMI] 22.0-22.9, adult As per patient privacy policy some of the clinical information may not be visible. Assessments Type Assessment Date No Information
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
[2024-04-09 13:17] VITALS: BP 113/74; PULSE 94; RESP 18; TEMP 36.6; O2SAT 99; BMI 28.9
[2024-04-09 13:44] LABS: MANUAL DIFF FLAG NO
[2024-04-09 13:45] LABS: Basophils Absolute Auto 0.1 X10*3/uL (0.0-0.2); Eosinophils Absolute Auto 0.8 X10*3/uL (0.0-0.4); Eosinophils Percent Auto 7.5 % (0-4); Hematocrit 41.8 % (42.0-52.0); Hemoglobin 14.5 g/dl (14.0-18.0); Imm Gran Abs Auto 0.04 X10*3/uL (0.00-0.03); Imm Gran Pct Auto 0.4 % (0.0-0.4); Lymphocytes Absolute Auto 2.4 X10*3/uL (1.2-4.9); Lymphocytes Percent Auto 23.5 % (20-40); Mean Corpuscular HGB Conc 34.7 g/dl (31.0-36.0); Mean Corpuscular Hemoglobin 27.7 pg (27.0-33.0); Mean Corpuscular Volume 79.9 fL (80.0-98.0); Mean Platelet Volume 9.2 fL (9.4-12.4); Monocytes Percent Auto 9.6 % (2-11); Platelet Count 294 X10*3/uL (160-400); Red Blood Count 5.23 X10*6/uL (4.60-5.80); Red Cell Distribution Width 12.7 % (11.0-16.0); White Blood Count 10.3 X10*3/uL (4.8-10.8)
[2024-04-09 13:59] LABS: Alanine Aminotransferase 21 U/L (0-40); Albumin Level 4.3 g/dL (3.5-5.0); Alkaline Phosphatase 93 U/L (39-117); Anion Gap 10 (12-20); Aspartate Amino Transferase 25 U/L (5-37); Bilirubin Total 0.3 mg/dL (0.0-1.0); Blood Urea Nitrogen 15 mg/dL (9-16); Calcium 9.4 mg/dL (8.4-10.2); Carbon Dioxide 26 mmol/L (22-29); Chloride 107 mmol/L (96-108); Creatinine Clr Calc Pharmacy 129.9; Estimated Glomerular Filt Rate > 60; Glucose Random 91 mg/dL (60-115); Lipase 20 U/L (8-78); Potassium 4.2 mmol/L (3.3-5.1); Sodium 139 mmol/L (135-145); Total Protein 7.4 g/dL (6.5-8.0)
[2024-04-09 19:34] VITALS: BP 114/65; PULSE 80; RESP 18; TEMP 36.6; O2SAT 98
[2024-04-09 20:00] VITALS: BP 132/84; PULSE 82; RESP 16; TEMP 36.8; O2SAT 96
[2024-04-09] MEDS: Milk of Magnesia 30 ML ORAL.SUSP PO (20:28)
[2024-04-09] MEDS: Docusate Sodium 100 MG CAPSULE 200 MG PO (20:28)
[2024-04-09 20:56] VITALS: BP 132/84; PULSE 82; RESP 16; TEMP 36.8; O2SAT 96
== END 2024-04-09 20:57 | disposition home or self-care (01) ==
PROVIDERS: Nurse Practitioner Family; Emergency Provider Emergency Medicine Emergency Medical Services; PCP Physician Assistant Medical
DX: K59.00 Constipation, unspecified (principal); F11.10 Opioid abuse, uncomplicated; R10.2 Pelvic and perineal pain; Z79.899 Other long term (current) drug therapy
CPT/HCPCS: 36415; 74018; 80053; 83690; 85025; 99284

== ENCOUNTER → 2024-04-09 13:19 | Outpatient (BNV) | payer MEDICARE, MEDICAID, SELFPAY | PROVIDERS: PCP Physician Assistant Medical; Visit Provider Radiology Diagnostic Radiology | DX: K56.41 Fecal impaction (principal) | CPT/HCPCS: 74018 ==

== ENCOUNTER 2024-04-27 06:32 | Outpatient (REF) | payer MEDICARE, MEDICAID, SELFPAY ==
--- OUTSIDE RECORDS SUMMARY | 2024-04-27 06:34 | XMS_ITS | Continuity of Care Document ---
Author Organization [facility] Address [address] [place] [address] Phone Care Team Providers Care Lead Python Developer Name Role Phone Yehuda Burger BA Unavailable Unavailable Allergies, Adverse Reactions, Alerts Substance Reaction Status Criticality No Known Allergies Active No Inform ation Medications Medication Instructions Dosage Effective Dates (start - stop) Status Comments Depakote ER 250 mg tablet,extended release take 1 tab by oral route every bedtime in addition to 500 mg tablet for a TDD of 750 mg - Active ziprasidone 40 mg capsule take 1 capsule by oral route 2 times every day with food 40 MG - Active Depakote ER 500 mg tablet,extended release take 1 tablet by mouth once daily at bedtime with 250 mg tablet for a TDD of 750 mg - Active escitalopram 10 mg tablet take 1 tablet by oral route every day in the morning - Active Do not dispense to patient, please hold for VNA or patients father lithium carbonate ER 450 mg tablet,extended release take 1 tabs by oral route every bedtime 1 tabs - Active Vivitrol 380 mg intramuscular suspension,extended release inject 4 milliliter by intramuscular route every 4 weeks 380 MG - Active Advance Directives Directive Yes / No Effective Date File Name No Information Encounters Encounter Description Practice Location Reason(s) For Visit Diagnoses Date Provider [facility], [address] [place] [address], [id number], tel:[phone] OP A Bris 225 NMS No Information Tao Blackman. [address] [place] [address], [address] [place] [address], . tel:[phone], [address] [place] [address], [facility], tel:[phone] OP A [facility] [address] Medication Management (chief complaint)Ps ychiatric (chief complaint) Personal hx of traumatic brain injury Иван Candelarian. [address] [place] [address], [address] [place] [address], [place]. tel:[phone], [address] [place] [address], [facility], [place] tel:[phone] [facility] [address] MAT (*Medication Assisted [place]) (chief complaint) Encounter for screening for depression [facility]. [address] [place] [address], [address] [place] [address], . tel:[phone], [address] [place] [address], [facility], tel:[phone] IOP [facility] [address] Medication Management (chief complaint)Ps ychiatric (chief complaint) Personal hx of traumatic brain injury Иван Candelarian. [address] [place] [address], [address] [place] [address], [place]. tel:[phone] [employer], [address] [place] [address], [facility], tel:[phone] IOP [facility] [address] Rupesh Ashley. [address] [place] [address], [address] [place] [address], [place]. tel:[phone], [address] [place] [address], [facility], [place] tel:[phone] IOP [facility] [address] Gilberto Carter. [address] [place] [address], [address] [place] [address], [place]. tel:[phone], [address] [place] [address], [facility], [place] tel:[phone] IOP [facility] [address] Flaco Enriquez. [address] [place] [address], [address] [place] [address], [place]. tel:[phone], [address] [place] [address], [facility], tel:[phone] IOP [facility] [address] Medication Management (chief complaint)Ps ychiatric (chief complaint) Иван Rodriguez. [address] [place] [address], [address] [place] [address], [place]. tel:[phone] [employer] [facility], [address] [place] [address], [facility], tel:[phone] IOP [facility] [address] Rupesh Ashley. [address] [place] [address], [address] [place] [address], [place]. tel:[phone] [employer] [facility], [address] [place] [address], [facility], tel:[phone] [facility] [address] Cassi Edward. [address] [place] [address], [address] [place] [address], [place]. tel:[phone] [employer] [facility], [address] [place] [address], [facility], tel:[phone] IOP [facility] [address] Flaco Enriquez. [address] [place] [address], [address] [place] [address], [place]. tel:[phone] [employer] [facility], [address] [place] [address], [facility], [place] tel:[phone] [facility] [address] Rupesh Ashley. [address] [place] [address], [address] [place] [address], [place]. tel:[phone] [facility], [address] [place] [address], [facility], [place] tel:[phone] [facility] [address] MAT (*Medication Assisted [place]) (chief complaint) Body mass index (BMI) 23.0-23.9, adult Yashira Lucero. [address] [place] [address], [address] [place] [address], . tel:[phone], [address] [place] [address], [facility], tel:[phone] OP A [facility] [address] Medication Management (chief complaint)Ps ychiatric (chief complaint) Personal hx of traumatic brain injury Иван Rodriguez. [address] [place] [address], [address] [place] [address], [place]. tel:[phone], [address] [place] [address], [facility], tel:[phone] IOP [facility] [address] [facility]. [address] [place] [address], [address] [place] [address], [place]. tel:[phone], [address] [place] [address], [facility], tel:[phone] IOP [facility] [address] [facility]. [address] [place] [address], [address] [place] [address], [place]. tel:[phone], [address] [place] [address], [facility], tel:[phone] IOP [facility] [address] Telemaque Chelsey. [address] [place] [address], [address] [place] [address], [place]. tel:[phone] [employer], [address] [place] [address], [facility], [place] tel:[phone] [facility] [address] office visit (chief complaint)HEMALATHA Castor (*Medication Assisted [place]) (chief complaint) Encounter for screening for other metabolic disordersEncounter for STD screeningBody mass index (BMI) 22.0-22.9, adult Yashira Barker. [address] [place] [address], [address] [place] [address], [place]. tel:[phone] [facility], [address] [place] [address], [facility], tel:[phone] [facility] [address] Nadir Chacko. [address] [place] [address], [address] [place] [address], [place]. tel:[phone] [facility], [address] [place] [address], [facility], tel:[phone] [facility] [address] Nadir Chacko. [address] [place] [address], [id number], [place]. tel:[phone] [facility], [address] [place] [address], [facility], tel:[phone] OP A [facility] [address] Rajinder Mehta. [address] [place] [address], [address] [place] [address], [place]. tel:[phone] As per patient privacy policy some of the clinical information may not be visible. Family History Family Member Type Diagnosis Age At Onset No Information Payers Payer name Insurance type Covered green party ID Kathy hendersonpeggy(s) Chrystal Zainab [id number] Social History Type Description Quantity Date Captured [...] Fluoride varnish application. Due on due Goal Tdap. Due on [...] Goal Tdap. Due on due Goal HPV (). Due [...] ening. Due on due Goal Depression scree libai. Due on due Goal HPV (). Due on due Goal Unhealthy drug u [...] due Goal Tdap. Due on due Goal Lifestyle education regardin [...] Goal Tdap. Due on due Goal HPV (). Due on due Goal Influenza vaccine. Due [...] completed Goal Tdap. Due on due Goal Fluoride varnish application. Due on due Goal Hepatitis C scre ening. Due on due Goal Influenza vaccine. Due on due Goal Unhealthy drug u se screening. Due on due Goal HIV 1/0/2 Ag/Ab w/Rflx. Due on due Goal Health Literacy Assessment. Due on due Goal Depression scree libia. Due on due Goal HPV (). Due [...] nt education, guidance, and counseling ordered Goal Dietary manageme nt education, guidance, and counseling ordered Goal Lifestyle education regardin g diet ordered Goal Lifestyle education regardin g diet ordered Goal Lifestyle education regardin g diet ordered Referral Ordered: Referrals: Neurology. Evaluate and treat ordered Referral Ordered: Referrals: Neuropsychology - Adult ordered Future Order: Lab Order LITHIUM ([id number]), [...] were called and he was taken to [facility]. He was released a few [...] that he forgot to get an updated Attalla level. He states that the [facility] gives the med sleeve to his father and his father admins the PM meds to him. This instructional writer is requesting increase frequency to BID [...] this would not be appropriate for this instructional writer to treat at this time until [...] assess patient safety, status and medication efficacy. Attalla level ordered today and to be re [...] bearing.Patient was in psych unit twice in [place] in Apr 2021, most recent was suicide [...] until 04/2021 when he was hospitalized n [facility]. He states that he has been compliant [...] currently enrolled in the IOP program at [facility] and he identified this as a major [...] in MATx tx and receiving Naltrexone/Vivitrol through [facility]. He reported to this instructional writer that he feels unstable . Patient [...] slit my throat . Denies an intent. Validation Analyst Pepe joined appointment to assist in evaluation [...] term doses of medications (as reviewed with Registration Manager, Dr. Chris), patients father to hot die picker medications from the pharmacy, keep them locked [...] of Depakote 250 mg BID, sent to [facility], not picked up by patient or father as father was unable to come to [facility]. TW spoke with patients father who requested that medications be sent to [facility] on [address] in [place]. TW Advised patients father, Urbano, (KAYLEEN on file) that after pharmacology review of this case with Registration Manager, Dr. Chris, medication regimen would be as follows: 5 days worth of Lexapro 10 mg once daily in the AM, [address] 250 mg once daily in the AM, 5 days worth of Attalla ER 300 mg once daily at bedtime. Patients father verbalized understanding of medication regimen. Patients father in agreement with, and verbalized understanding of, the following plan: father to hot die picker medications from the pharmacy, keep them locked [...] BH. Instructions Date Instruction Additional Infor juli Giving encouragement to exercise Related to Body [...]
== END 2024-04-27 06:33 | disposition home or self-care (01) ==
LOC: CF 06:32
PROVIDERS: Visit Provider Internal Medicine
DX: M25.571 Pain in right ankle and joints of right foot (principal); Z98.890 Other specified postprocedural states
CPT/HCPCS: 99212; J2003

== ENCOUNTER 2024-04-27 10:04 | Outpatient (AMB) | payer MEDICARE, MEDICAID, SELFPAY ==
--- NOTE | 2024-04-27 10:28 | A.OFFVIS_ITS ---
Vital Signs 04/27/24 10:29 Height 5 ft 7 in Weight 184 lb BMI 28.8 BP 113/69 Blood Pressure Location Lt brachial Position Sitting Pulse 82 Pulse Source Pulse Oximeter Pulse Oximetry (%) 99 Oxygen Delivery Method Room Air Intake Visit Reasons: Right sciatic nerve stim trial Hand Quilter Required: No Allergies dog dander [dogs] Allergy (Verified 04/27/24 10:29) Facial Swelling Medication List - Last Reconciled 04/27/24 by Tanya Vivar, [employer] acetaminophen (Tylenol) 325 mg PO QID PRN albuterol sulfate 90 mcg/actuation (Ventolin HFA) inhalation albuterol sulfate 90 mcg/actuation (Ventolin HFA) 2 puffs inhalation Q4-6H PRN barium sulfate 2.1%(w/v),2.0%(w/w) Follow instructions per radiology. capsaicin 0.1% (Arthritis Pain Relief (capsaicin)) 1 appl topical TID clonidine HCl 0.1 mg PO TID docusate sodium 100 mg PO BID gabapentin 300 mg PO TID 30 days hydroxyzine HCl 50 mg PO TID melatonin 5 - 10 mg (1 - 2 x 5 mg) PO .nightly PRN meloxicam 15 mg PO DAILY methadone 100 mg PO DAILY quetiapine mg PO triamcinolone acetonide (Nasacort) 2 sprays intranasal DAILY wheat dextrin (Benefiber Sugar Free (dextrin)) 1 tab PO DAILY HPI HPI Right sciatic nerve stim trial: Details: Patient presented for the procedure but claimed that he was not aware that he was only undergoing a diagnostic procedure today. He thought he was undergoing a nerve stimulator placement. He is not interested in proceeding with a diagnostic procedure today. On exam today: Appears afebrile. Alert and oriented. Mood and affect appropriate. Follows and participates in conversation appropriately. Respiratory effort is unlabored. Able to transition from sit to stand unassisted. Ambulates with bilaterally normal heel strike and toe off. Able to stand and walk on toes and heels. Allodynia on touch around the right ankle, especially in the right peroneal distribution. [facility] Medical History (Updated 04/10/24 @ 00:01 by Jessica Hutson) Opioid abuse Opioid dependence Family history of colon cancer Drug-seeking behavior PTSD (post-traumatic stress disorder) Anxiety and depression Blood in stool Chronic sinusitis Constipation Hyperglycemia Right ankle pain Asthma Surgical History History of sinus surgery History of ankle surgery Family History Father Diabetes Paternal Grandmother Anal cancer Diabetes Paternal Grandfather Diabetes Other FH: mental illness Social History Housing: Apartment Patient Tobacco Use Status: Never used Tobacco e-Cigarette/Vaping Use: Currently Using Second Hand Smoke Exposure: No Substance Use Type: Painkillers service: No Current occupational status: employed and unemployed 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 [employer] Current occupational exposures/hazards: No Cognitive needs: No Hearing needs: No Vision needs: No Physical Exam Vital Signs: Last Vital Signs Pulse 82 04/27/24 10:29 BP 113/69 04/27/24 10:29 Pulse Ox 99 04/27/24 10:29 Oxygen Delivery Method Room Air 04/27/24 10:29 BMI result Body Mass Index 28.8 Assessment & Plan Assessment & Plan (1) Right ankle pain: Code(s): M25.571 - Pain in right ankle and joints of right foot Category: Medical (2) History of ankle surgery: Code(s): Z98.890 - Other specified postprocedural states Category: Surgical Plan 23-year-old male with a past history right ankle fracture and surgery now with right ankle pain and allodynia. May have components of complex regional pain syndrome. May benefit from a diagnostic right lumbar sympathetic block. We will likely need premedication with benzo to be able to tolerate the procedure. If he is interested, we can potentially proceed with right peroneal nerve stimulator placement as well. However, must demonstrate adequate understanding of the procedure and commitment to follow through with the fall 2 months treatment. Coding Level of Care Code Est Pt Level 3 (78372) Diagnoses Right ankle pain M25.571 History of ankle surgery Z98.890
[2024-04-27 10:29] VITALS: BP 113/69; PULSE 82; O2SAT 99; BMI 28.8
== END 2024-04-27 10:51 | disposition home or self-care (01) ==
LOC: HO.PMCPRC 10:04
PROVIDERS: PCP Physician Assistant Medical; Visit Provider Internal Medicine
DX: M25.571 Pain in right ankle and joints of right foot (principal); Z98.890 Other specified postprocedural states
CPT/HCPCS: 99213

== ENCOUNTER 2024-06-12 10:08 | Outpatient (AMB) | payer MEDICARE, MEDICAID, SELFPAY ==
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
[2024-06-12 10:19] VITALS: BP 110/78; PULSE 102; RESP 16; O2SAT 97; BMI 31.0
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
== END 2024-06-12 10:48 | disposition home or self-care (01) ==
LOC: HO.HMCFM 10:08
PROVIDERS: PCP Physician Assistant Medical; Visit Provider Physician Assistant Medical
DX: M25.571 Pain in right ankle and joints of right foot (principal); G89.29 Other chronic pain; Z98.890 Other specified postprocedural states; F11.20 Opioid dependence, uncomplicated; K59.03 Drug induced constipation; K92.1 Melena; F43.10 Post-traumatic stress disorder, unspecified; F41.9 Anxiety disorder, unspecified; F32.A Depression, unspecified; J30.89 Other allergic rhinitis; J45.909 Unspecified asthma, uncomplicated

== ENCOUNTER → 2024-06-12 10:08 | Outpatient (BNVA) | payer MEDICARE, MEDICAID, SELFPAY | PROVIDERS: PCP Physician Assistant Medical; Visit Provider Physician Assistant Medical | DX: M25.571 Pain in right ankle and joints of right foot (principal); G89.29 Other chronic pain; G90.521 Complex regional pain syndrome I of right lower limb; Z98.890 Other specified postprocedural states; K59.03 Drug induced constipation; K92.1 Melena; F43.10 Post-traumatic stress disorder, unspecified; F41.9 Anxiety disorder, unspecified; F32.A Depression, unspecified; J30.89 Other allergic rhinitis; J45.909 Unspecified asthma, uncomplicated; F11.20 Opioid dependence, uncomplicated | CPT/HCPCS: 99212 ==

== ENCOUNTER 2024-06-12 13:40 | Outpatient (AMB) | payer MEDICARE, MEDICAID, SELFPAY ==
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
[2024-06-12 13:50] VITALS: BP 152/81; PULSE 99; O2SAT 99; BMI 30.4
--- OUTSIDE RECORDS SUMMARY | 2024-06-12 15:58 | XMS_ITS | Continuity of Care Document ---
Author Organization [facility] Address [address] [place] [address] Phone Care Team Providers Care Utility Technician Name Role Phone Yehuda Burger BA Unavailable [...] Location Reason(s) For Visit Diagnoses Date Provider [facility], [address] [place] [address], [id number], tel:[phone] OP A Bris 225 NMS No Information Tao Blackman. [address] [place] [address], [address] [place] [address], . tel:[phone], [address] [place] [address], [facility], tel:[phone] OP A Wtbry [address] Medication Management (chief complaint)Ps ychiatric (chief complaint) Personal hx of traumatic brain injury Иван Candelarian. [address] [place] [address], [address] [place] [address], [place]. tel:[phone], [address] [place] [address], [facility], [place] tel:[phone] Prmry Care Wtbry [address] MAT (*Medication Assisted [place]) (chief complaint) Encounter for screening for depression [place]. [address] [place] [address], [address] [place] [address], . tel:[phone], [address] [place] [address], [facility], tel:[phone] IOP A Wtbry [address] Medication Management (chief complaint)Ps ychiatric (chief complaint) Personal hx of traumatic brain injury Иван Candelarian. [address] [place] [address], [address] [place] [address], [place]. tel:[phone] [employer], [address] [place] [address], [facility], tel:[phone] IOP A Wtbry [address] Rupesh Ashley. [address] [place] [address], [address] [place] [address], [place]. tel:[phone], [address] [place] [address], [facility], [place] tel:[phone] IOP A Wtbry [address] Gilberto Carter. [address] [place] [address], [address] [place] [address], [place]. tel:[phone], [address] [place] [address], [facility], [place] tel:[phone] IOP A Wtbry [address] Flaco Enriquez. [address] [place] [address], [address] [place] [address], [place]. tel:[phone] [facility], [address] [place] [address], [facility], tel:[phone] IOP A Wtbry [address] Medication Management (chief complaint)Ps ychiatric (chief complaint) Иван Rodriguez. [address] [place] [address], [address] [place] [address], [place]. tel:[phone] ulike [facility], [address] [place] [address], [facility], tel:[phone] IOP A Wtbry [address] Rupesh Ashley. [address] [place] [address], [address] [place] [address], [place]. tel:[phone] ulike [facility], [address] [place] [address], [facility], tel:[phone] IOP A Wtbry [address] Cassi Edward. [address] [place] [address], [address] [place] [address], [place]. tel:[phone] ulike [facility], [address] [place] [address], [facility], tel:[phone] IOP A Wtbry [address] Flaco Enriquez. [address] [place] [address], [address] [place] [address], [place]. tel:[phone] ulike [facility], [address] [place] [address], [facility], [place] tel:[phone] IOP A Wtbry [address] Rupesh Ashley. [address] [place] [address], [address] [place] [address], [place]. tel:[phone] [facility], [address] [place] [address], [facility], [place] tel:[phone] [facility] [address] MAT (*Medication Assisted [place]) (chief complaint) Body mass index (BMI) 23.0-23.9, adult Yashira Lucero. [address] [place] [address], [address] [place] [address], . tel:[phone], [address] [place] [address], [facility], tel:[phone] OP A Wtbry [address] Medication Management (chief complaint)Ps ychiatric (chief complaint) Personal hx of traumatic brain injury Иван Rodriguez. [address] [place] [address], [address] [place] [address], [place]. tel:[phone], [address] [place] [address], [facility], tel:[phone] IOP A Wtbry [address] [facility]. [address] [place] [address], [address] [place] [address], [place]. tel:[phone] [employer], [address] [place] [address], [facility], tel:[phone] IOP A Wtbry [address] [facility]. [address] [place] [address], [address] [place] [address], [place]. tel:[phone], [address] [place] [address], [facility], tel:[phone] IOP A Wtbry [address] Telemaque Chelsey. [address] [place] [address], [address] [place] [address], [place]. tel:[phone] [employer], [address] [place] [address], [facility], [place] tel:[phone] [facility]tb[facility] [address] office visit (chief complaint)HEMALATHA Castro (*Medication Assisted [place]) (chief complaint) Encounter for screening for other metabolic disordersEncounter for STD screeningBody mass index (BMI) 22.0-22.9, adult Yashira Barker. [address] [place] [address], [address] [place] [address], [place]. tel:[phone] [facility], [address] [place] [address], [facility], tel:[phone] IOP A Wtbry [address] Nadir Chacko. [address] [place] [address], [address] [place] [address], [place]. tel:[phone] [facility], [address] [place] [address], [facility], tel:[phone] IOP A Wtbry [address] Nadir Chacko. [address] [place] [address], [id number], [place]. tel:[phone] [facility], [address] [place] [address], [facility], tel:[phone] OP A Wtbry [address] Rajinder Mehta. [address] [place] [address], [address] [place] [address], [place]. tel:[phone] As per patient privacy policy some of the clinical information may not be visible. Family History Family Member Type Diagnosis Age At Onset No Information Payers Payer name Insurance type Covered republican ID Kathy hendersonpeggy(s) Chrystal Zainab [id number] Social History Type Description Quantity Date Captured [...] HPV (1st). Due on 2 due Goal Unhealthy drug u se screening. [...] u se screening. Due on due Goal Lifestyle education regardin [...] varnish application. Due on due Goal HPV (). Due on due Goal Influenza vaccine. Due on due Goal Unhealthy drug u se screening. Due on due Goal Depression scree libia. Due on due Goal Health Literacy Assessment. Due on due Goal Hepatitis C scre ening. Due on due Goal Lifestyle education regardin g diet completed Goal Unhealthy drug u se screening. Due [...] were called and he was taken to [facility]. He was released a few hours later [...] that he forgot to get an updated [place] level. He states that the [facility] gives the med sleeve to his father and his father admins the PM meds to him. This sports writer is requesting increase frequency to BID [...] this would not be appropriate for this sports writer to treat at this time until [...] assess patient safety, status and medication efficacy. Ple[place] level ordered today and to be re [...] bearing.Patient was in psych unit twice in [place] in Apr 2021, most recent was suicide [...] currently enrolled in the IOP program at [facility] and he identified this as a major [...] in MATx tx and receiving Naltrexone/Vivitrol through [facility]. He reported to this sports writer that he feels unstable . Patient [...] slit my throat . Denies an intent. Weather Algorithm Scientist Pepe joined appointment to assist in evaluation [...] term doses of medications (as reviewed with Clinical Trial Leader, Dr. Chris), patients father to orange picking supervisor medications from the pharmacy, keep them locked [...] of Depakote 250 mg BID, sent to [facility], not picked up by patient or father as father was unable to come to [facility]. TW spoke with patients father who requested that medications be sent to [facility] on [address] in [place]. TW Advised patients father, Urbano, (KAYLEEN on file) that after pharmacology review of this case with Clinical Trial Leader, Dr. Chris, medication regimen would be as follows: 5 days worth of Lexapro 10 mg once daily in the AM, [address] 250 mg once daily in the AM, 5 days worth of Ple[place] ER 300 mg once daily at bedtime. Patients father verbalized understanding of medication regimen. Patients father in agreement with, and verbalized understanding of, the following plan: father to orange picking supervisor medications from the pharmacy, keep them locked [...]
== END 2024-06-12 14:13 | disposition home or self-care (01) ==
LOC: HO.PMC 13:41
PROVIDERS: PCP Physician Assistant Medical; Visit Provider Nurse Practitioner Family
DX: M25.571 Pain in right ankle and joints of right foot (principal); G90.529 Complex regional pain syndrome I of unspecified lower limb; Z98.890 Other specified postprocedural states
CPT/HCPCS: 99214; G2211

== ENCOUNTER 2024-06-30 18:05 | Emergency (ER) | payer MEDICARE, MEDICAID, SELFPAY ==
[2024-06-30 18:24] VITALS: BP 136/79; BP 136/88; PULSE 98; PULSE 99; RESP 21; TEMP 36.8; O2SAT 98; BMI 28.9
--- NOTE | 2024-06-30 18:45 | MHC.CARE ---
CARE team received phone call from [facility] worker who wanted to share information regarding pt's ER presentation today. She reported that he had discharged home from an inpatient admission at [facility] yesterday and today had a planned phone meeting with Nahed to do a safety assessment. She reported that they suspected that he might have been overdosing on elicit substances due to him sounding like he was nodding off and snoring, so they called [facility] to do a wellbeing check. No other information disclosed at this time.
--- NOTE | 2024-06-30 18:54 | ED.GENADULT ---
HPI - General Adult General Chief complaint: General Medical Stated complaint: ams,found laying on floor Time Seen by Provider: 06/30/24 18:40 Source: patient, RN notes reviewed, old records reviewed and other (girlfriend, Meghan Barbourr) Mode of arrival: EMS Limitations: no limitations History of Present Illness ED Provider: Ck GRULLON narrative: 23-year-old male presents for evaluation after a wellness visit was called to his house. the patient does have a history of opiate abuse, PTSD, anxiety and depression he was apparently discharged from [facility] yesterday after an inpatient admission he had a phone interview with [facility] today and they were concerned that he was overdosing on illicit substances as he sounded as if he was nodding off on the phone the patient reports that he was sleeping in bed the police just came in and brought me here. The patient denies any complaints. He denies any drugs or alcohol today he reports that he would like to be discharged home he took his prescribed medications this morning but did not take anything more than he was prescribed per his report he reports that he has an appointment with his psychiatrist on Wednesday for a medication adjustment. The patient's girlfriend is concerned that the patient is overmedicated and plans to attend his psychiatry appointment on Wednesday with him the patient has not complained of any depression or suicidal ideation Related Data Home Medications ?Medication ?Instructions ?Recorded ?Confirmed buspirone 10 mg tablet mg PO 3XD 06/12/24 06/13/24 clonidine 0.2 mg/24 hr weekly 1 patch transdermal QWEEK 06/12/24 06/13/24 transdermal patch duloxetine 30 mg capsule,delayed mg PO 06/12/24 06/13/24 release lamotrigine 25 mg tablet mg PO DAILY 06/12/24 06/13/24 methadone 10 mg/5 mL oral solution 100 mg PO DAILY 06/12/24 06/13/24 olanzapine 15 mg tablet mg PO 06/12/24 06/13/24 olanzapine 2.5 mg tablet mg PO 06/12/24 06/13/24 trazodone 50 mg tablet 50 - 100 mg PO BEDTIME PRN insomnia 06/12/24 06/13/24 Previous Rx's ?Medication ?Instructions ?Recorded acetaminophen 325 mg capsule 325 mg PO QID PRN pain #30 caps 09/03/22 (Tylenol) albuterol sulfate 90 mcg/actuation 2 puff inhalation Q4-6H PRN 06/12/24 aerosol inhaler (Ventolin HFA) shortness of breath or wheezing #8.5 grams budesonide 180 mcg/actuation 1 inh inhalation BID #1 ea 06/12/24 breath activated powder inhaler (Pulmicort Flexhaler) fluticasone furoate 27.5 2 spray intranasal DAILY #5.9 mL 06/12/24 mcg/actuation nasal spray,suspension (Flonase Sensimist) lactulose 10 gram/15 mL oral 10 g (15 mL) PO DAILY PRN 06/12/24 solution constipation #1,500 mL pregabalin 50 mg capsule 50 mg PO BID pain 30 days #60 caps 06/12/24 lorazepam 1 mg tablet (Ativan) 1 mg PO ONCE anxiety #1 tab 06/29/24 fluticasone furoate 100 1 inh inhalation DAILY #30 ea 06/30/24 mcg/actuation blister powder for inhalation (Arnuity Ellipta) Allergies Allergy/AdvReac Type Severity Reaction Status Date / Time dog dander [dogs] Allergy Facial Verified 06/30/24 18:29 Swelling Review of Systems Constitutional: Constitutional: Denies body ache(s), Denies chills, Denies fever(s) and Denies frequent falls Eyes: Eyes: Denies blurry vision ENT: Denies vertigo and Denies dizziness Cardiovascular: Cardiovascular: Denies chest pain and Denies dyspnea Respiratory: Respiratory: Denies cough and Denies dyspnea Gastrointestinal: Gastrointestinal: Denies abdominal pain, Denies nausea and Denies vomiting Musculoskeletal: Musculoskeletal: Denies back pain Integumentary/Breasts: Skin/Breast: Denies rash Neurologic: Denies vertigo, Denies dizziness and Denies frequent falls Psychiatric: Psychiatric: Denies anxiety, Denies depression and Denies suicidal ideation [facility] Past Medical History Medical History (Updated 06/30/24 @ 18:56 by Pepe Stover) Allergic rhinitis Opioid abuse Opioid dependence Family history of colon cancer Drug-seeking behavior PTSD (post-traumatic stress disorder) Anxiety and depression Blood in stool Chronic sinusitis Constipation Hyperglycemia Right ankle pain Asthma Surgical History History of sinus surgery History of ankle surgery Family History Family History Father Diabetes Paternal Grandmother Anal cancer Diabetes Paternal Grandfather Diabetes Other FH: mental illness Social History Social History Housing: Apartment Patient Tobacco Use Status: Current everyday Tobacco user Years Smoked: 6 e-Cigarette/Vaping Use: Currently Using Second Hand Smoke Exposure: No Substance Use Type: Painkillers service: No Current occupational status: employed and unemployed 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 [employer] Current occupational exposures/hazards: No Cognitive needs: No Hearing needs: No Vision needs: No Physical Exam ED Vital Signs: Vital Signs - 24 hr 06/30/24 18:24 Temperature 98.3 F Pulse Rate 99 Respiratory Rate 21 H Blood Pressure 136/79 Pulse Oximetry 98 Oxygen Delivery Method Room Air BMI result Body Mass Index 28.9 Const General: healthy appearing, comfortable, no acute distress, alert and awake Nutritional Appearance: well nourished Orientation/consciousness: patient oriented x3 HENMT Head: Yes normocephalic and Yes atraumatic Eyes Eyelids: Yes eyelids normal Conjunctivae: conjunctivae normal Sclerae: sclerae normal Corneas: corneas normal Pupils: Equal, round and reactive pupils present EOM: EOMs intact bilaterally Neck Neck: Yes full ROM Resp Effort & Inspection: normal respiratory effort, able to speak in complete sentences and not labored Skin General skin exam: elasticity normal Neuro General: patient oriented x3 Cranial nerves: Yes CN's II-XII intact bilaterally, Yes Equal, round and reactive pupils present and Yes Bilaterally intact EOM present Cognition (Neuro): normal cognition Extrem Other: Moving all extremities well without any obvious deformities Psych Appearance: grossly normal Mental Status: mental status grossly normal Speech and movement: Normal speech and movement present Affect: normal affect Attitude: cooperative Thought process: Normal thought process present Thought content: Normal thought content present Insight: Fair insight present (Psych) Judgement: Fair judgement present (Psych) Medical Decision Making Medical Decision Making MDM Narrative: 23-year-old male presents for evaluation of a wellness check. The patient was apparently somnolent but easily arousable per EMS. On arrival to the ED, he was awake, alert and oriented. He was ambulating around the department without difficulty, he has no focal neuro deficits. Use requesting discharge. There was never any mention of depression or suicidal ideation. the patient's girlfriend is bedside and she has no further concerns, she was comfortable with the patient being discharged in she will be able to go to his appointment with him on Wednesday for medication adjustment. Differential Diagnosis Differential Diagnoses: The differential diagnosis associated with the presentation includes Wellness check Depression Anxiety Substance abuse Discharge Plan Discharge Clinical Impression: Adult wellness visit Patient Disposition: Home, Self-Care Instructions: Normal Exam (ED) Additional Instructions: take your medications only as prescribed. It was very important that you follow-up with your psychiatrist on Wednesday as planned. Return for new or worsening symptoms Prescriptions: No Action Arnuity Ellipta 100 mcg/actuation blister with device 1 inh inhalation DAILY Qty: 30 5RF Rx Instructions: Replaces Pulmicort. Pulmicort not covered by insurance. acetaminophen [Tylenol] 325 mg capsule 325 mg PO QID PRN (Reason: pain) Qty: 30 0RF lamotrigine 25 mg tablet PO DAILY pregabalin 50 mg capsule 50 mg PO BID 30 Days Qty: 60 0RF methadone 10 mg/5 mL solution 100 mg PO DAILY Rx Instructions: 100mg in the am and 40mg in pm clonidine 0.2 mg/24 hr patch weekly 1 patch transdermal QWEEK buspirone 10 mg tablet PO 3XD olanzapine 15 mg tablet PO olanzapine 2.5 mg tablet PO duloxetine 30 mg capsule,delayed release(DR/EC) PO trazodone 50 mg tablet 50 - 100 mg PO BEDTIME PRN (Reason: insomnia) Pulmicort Flexhaler 180 mcg/actuation aerosol powdr breath activated 1 inh inhalation BID Qty: 1 3RF Rx Instructions: Gargle and rinse mouth after use Flonase Sensimist 27.5 mcg/actuation spray,suspension 2 spray intranasal DAILY Qty: 5.9 3RF Rx Instructions: into each nostril albuterol sulfate [Ventolin HFA] 90 mcg/actuation HFA aerosol inhaler 2 puff inhalation Q4-6H PRN (Reason: shortness of breath or wheezing) Qty: 8.5 3RF lactulose 10 gram/15 mL solution 10 g PO DAILY PRN (Reason: constipation) Qty: 1500 0RF lorazepam [Ativan] 1 mg tablet 1 mg PO ONCE Qty: 1 0RF Rx Instructions: Take 30 minutes prior to arrival to procedure Print Language: Icelandic
[2024-06-30 19:16] VITALS: BP 136/79; PULSE 99; RESP 21; TEMP 36.8; O2SAT 98
== END 2024-06-30 19:17 | disposition home or self-care (01) ==
PROVIDERS: Emergency Provider Internal Medicine; PCP Physician Assistant Medical
DX: R41.82 Altered mental status, unspecified (principal); F17.210 Nicotine dependence, cigarettes, uncomplicated; Z79.899 Other long term (current) drug therapy
CPT/HCPCS: 99283

== ENCOUNTER 2024-07-06 06:24 | Outpatient (REF) | payer MEDICARE, MEDICAID, SELFPAY ==
--- NOTE | ~2024-07-06 | FL_ITS ---
EXAMINATION: FL GUIDANCE ONLY HISTORY: G90.529 - Complex regional pain syndrome I of unspecified lower limb COMPARISON: None available. TECHNIQUE: Fluoroscopy time: 21.3 seconds. Cumulative Dose: 9.5163 mGy. DAP: 1.0826 mGym2 Images: 6. FINDINGS: Fluoroscopic spot films of the spine demonstrate a needle and contrast material anterior to a vertebral body. FL/FL guidance in treatment room IMPRESSION: Fluoroscopy during procedure. Please see procedure report for additional information. Electronically signed by: David Deshpande MD 07/06/2024 02:36 PM EDT
== END 2024-07-06 06:25 | disposition home or self-care (01) ==
LOC: CF 06:24
PROVIDERS: Visit Provider Internal Medicine
DX: G90.521 Complex regional pain syndrome I of right lower limb (principal)
CPT/HCPCS: 64520; 77003; J2003; J2795; J3301; Q9967

== ENCOUNTER 2024-07-06 11:52 | Outpatient (AMB) | payer MEDICARE, MEDICAID, SELFPAY ==
--- NOTE | 2024-07-06 11:58 | A.OFFVIS_ITS ---
Vital Signs 07/06/24 11:59 07/06/24 13:02 BP 101/64 96/51 L Blood Pressure Location Lt brachial Lt brachial Position Sitting Sitting Respiration 16 16 Pulse 82 98 Pulse Source Pulse Oximeter Pulse Oximeter Pulse Oximetry (%) 98 98 Oxygen Delivery Method Room Air Room Air Intake Visit Reasons: RIGHT DIAGNOSTIC LUMBAR SYMPATHETIC BLOCK/ Ativan Hoop Cutter Required: No Allergies dog dander [dogs] Allergy (Verified 07/06/24 11:59) Facial Swelling Medication List - Last Reconciled 07/06/24 by Yolanda Horan LPN acetaminophen (Tylenol) 325 mg PO QID PRN albuterol sulfate 90 mcg/actuation (Ventolin HFA) 2 puffs inhalation Q4-6H PRN budesonide 180 mcg/actuation (Pulmicort Flexhaler) 1 inh inhalation BID buspirone mg PO 3XD clonidine 1 patch transdermal QWEEK duloxetine mg PO fluticasone furoate 27.5 mcg/actuation (Flonase Sensimist) 2 sprays intranasal DAILY fluticasone furoate 100 mcg/actuation (Arnuity Ellipta) 1 inh inhalation DAILY lactulose 10 grams (15 mL) PO DAILY PRN lamotrigine mg PO DAILY lorazepam (Ativan) 1 mg PO ONCE methadone 100 mg PO DAILY olanzapine mg PO olanzapine mg PO pregabalin 50 mg PO BID 30 days trazodone 50 - 100 mg PO BEDTIME PRN HPI HPI RIGHT DIAGNOSTIC LUMBAR SYMPATHETIC BLOCK/ Ativan: Details: Patient presents for scheduled procedure. Denies any recent cough, cold, infection, fever or other significant changes in medical history since last office visit. COUNTS INCLUDE 234 BEDS AT THE [facility] Medical History (Updated 07/01/24 @ 00:00 by Jessica Hutson) Allergic rhinitis Opioid abuse Opioid dependence Family history of colon cancer Drug-seeking behavior PTSD (post-traumatic stress disorder) Anxiety and depression Blood in stool Chronic sinusitis Constipation Hyperglycemia Right ankle pain Asthma Surgical History History of sinus surgery History of ankle surgery Family History Father Diabetes Paternal Grandmother Anal cancer Diabetes Paternal Grandfather Diabetes Other FH: mental illness Social History Housing: Apartment Patient Tobacco Use Status: Current everyday Tobacco user Years Smoked: 6 e-Cigarette/Vaping Use: Currently Using Second Hand Smoke Exposure: No Substance Use Type: Painkillers service: No Current occupational status: employed and unemployed 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 The patient was placed in the prone position. The lumbar area was widely prepped with chloraprep and draped in sterile fashion. Fluoroscopic guidance was used to identify the L2 vertebral body. With L2 vertebral body squared off in the AP position, the shadow of the L2 transverse process was noted to be enclosed with in the projection of the vertebral body at 30 degrees ipsilateral oblique imaging. Subcutaneous 0.5% lidocaine was used to anesthetize the skin overlying the lower third of the anterolateral border of the L2 vertebral body. A 5 inch 22-gauge Quinke needle with a small bend on the tip was advanced towards the right lumbar sympathetic chain under ipsilateral oblique, AP and lateral fluoroscopic views. Under lateral imaging, the needle was advanced slightly beyond the anterior border of the L2 vertebral body. There was no evidence of heme or CSF and no paresthesias were elicited with needle placement. Next 2 ml Omnipaque 180 was injected under live fluoroscopy with cephalad and caudad contrast spread in the vicinity of the sympathetic chain without vascular uptake. Next, 8cc of ropivacaine 0.25% mixed Kenalog 20mg was injected with negative aspiration every 2 mL. The needle was removed, skin cleansed and a sterile bandage was applied. The patient tolerated the procedure well and no complications were encountered. Following the procedure the patient's vital signs were stable. The patient was monitored in post-procedure revovery for 30 minutes before being discharged home in good condition with post-procedural instructions. Time Out: Immediately prior to the procedure, the following was verbally confirmed that there is a signed consent form and that the correct patient, planned procedure, site and side are consistent with documentation and that necessary equipment and/or blood products are available prior to the start of the case. Complications: none EBL: <5 cc 41419 - Block 08907 - with Fluoroscopy Procedure code (CPT) selection complete Assessment & Plan Assessment & Plan (1) CRPS (complex regional pain syndrome) type I of lower limb: Code(s): G90.529 - Complex regional pain syndrome I of unspecified lower limb Category: Medical Plan Patient is status post right lumbar sympathetic block. Patient tolerated procedure well and was discharged home in stable condition with discharge instructions. All questions were answered. We will follow-up via telephone or in clinic to assess response to therapy. A follow-up appointment was made during today's visit. Orders: Orders FL guidance in treatment room Today G90.529 - Complex regional pain syndrome I of unspecified lower limb Medications: New lorazepam (Ativan) Take 30 minutes prior to arrival to procedure 1 mg PO ONCE 1 tab 0RF anxiety Coding Level of Care Code Procedure Only Diagnoses CRPS (complex regional pain syndrome) type I of lower limb G90.529 CPT Codes Lumbar Sympathetic Block - LSBLOCK 1: 15010 - Block ([id number])
[2024-07-06 11:59] VITALS: BP 101/64; PULSE 82; RESP 16; O2SAT 98
[2024-07-06 13:02] VITALS: BP 96/51; PULSE 98; RESP 16; O2SAT 98
== END 2024-07-06 12:51 | disposition home or self-care (01) ==
LOC: HO.PMCPRC 11:52
PROVIDERS: PCP Physician Assistant Medical; Visit Provider Internal Medicine
DX: G90.521 Complex regional pain syndrome I of right lower limb (principal)
CPT/HCPCS: 64520

== ENCOUNTER 2024-07-13 12:48 | Outpatient (AMB) | payer MEDICARE, MEDICAID, SELFPAY ==
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
[2024-07-13 13:14] VITALS: BP 133/71; PULSE 114; O2SAT 100; BMI 29.2
== END 2024-07-13 13:38 | disposition home or self-care (01) ==
LOC: HO.PMC 12:49
PROVIDERS: PCP Physician Assistant Medical; Visit Provider Nurse Practitioner Family
DX: F41.9 Anxiety disorder, unspecified (principal); F32.A Depression, unspecified; G90.529 Complex regional pain syndrome I of unspecified lower limb
CPT/HCPCS: 99214; G2211

== ENCOUNTER → 2024-07-13 12:48 | Outpatient (BNVA) | payer MEDICARE, MEDICAID, SELFPAY | PROVIDERS: PCP Physician Assistant Medical; Visit Provider Nurse Practitioner Family | DX: F41.9 Anxiety disorder, unspecified (principal); F32.A Depression, unspecified; G90.529 Complex regional pain syndrome I of unspecified lower limb | CPT/HCPCS: 99212 ==

== ENCOUNTER 2024-08-11 18:28 | Emergency (ER) | payer MEDICARE, MEDICAID, SELFPAY ==
[2024-08-11 18:32] VITALS: BP 140/98; PULSE 98; O2SAT 96
[2024-08-11 18:37] VITALS: BP 120/68; PULSE 105; RESP 16; TEMP 36.4; O2SAT 98; BMI 29.0
--- NOTE | 2024-08-11 19:30 | PC.NURSE ---
23-year-old male presents for evaluation after a wellness visit was called to his house. the patient does have a history of opiate abuse, PTSD, anxiety and depression presents after taking 1000mg of tylenol pm and 200mg of trazodone to sleep . Patient alert and states he feels better now and would like to go home Bizarre affect noted. Lungs clear bilat. Respirations even and non-labored. Abdomen soft, non-tender with positive bowel sounds. Patient noted to be wearing depends. Positive pedal pulses with no edema noted.
[2024-08-11 20:00] VITALS: BP 117/81; PULSE 124; RESP 16; TEMP 36.3; O2SAT 98
[2024-08-11 20:12] LABS: Appearance Urine Clear; Color Urine Yellow; Glucose Urine UA Negative (Negative); Leukocyte Esterase Urine Small (1+) (Negative); Nitrite Urine Negative (Negative); Specific Gravity - Urine 1.015 (1.005-1.025); UMIC TRIGGER UACC YES; Urine Blood Trace (Negative); Urine Ketones Trace mg/dL (Negative); Urine Protein Negative (Neg-Trace)
[2024-08-11 20:15] LABS: Bacteria Urine None Seen (None Seen); Squamous Epithelial Cell Urine 0-2 /HPF (0-2); UACC Culture Trigger YES
[2024-08-11 20:21] LABS: Amphetamine Screen Urine Not Detected (Not Detect); Barbiturates, Urine Not Detected (Not Detect); Benzodiazepines Screen Urine Not Detected (Not Detect); Buprenorphine Scr Not Detected (Not Detect); Cannabinoid Screen Urine Not Detected (Not Detect); Cocaine Screen Urine Not Detected (Not Detect); Fentanyl, urine Not Detected (Not Detect); Methadone Screen, Urine Positive (Not Detect); Opiate Screen Urine Not Detected (Not Detect); Oxycodone Screen Urine Not Detected (Not Detect); Phencyclidine Screen Urine Not Detected (Not Detect)
[2024-08-11 22:00] VITALS: BP 110/80; PULSE 87; RESP 16; TEMP 36.8
--- NOTE | 2024-08-11 22:50 | ED_ITS ---
HPI - General Adult General Chief complaint: General Medical Stated complaint: PER EMS OD, DIZZINESS Time Seen by Provider: 08/11/24 22:33 Source: patient and EMS Mode of arrival: EMS Limitations: no limitations History of Present Illness ED Provider: Dr. Johanny Lee HPI narrative: Patient comes to the emergency room complaining of medication side-effect. Patient states that earlier today around 17:30, patient took 700 mg of acetaminophen PM and 200 mg of trazodone. Initially when patient was triage, it was written down that he took 1000 mg earlier today. Patient is adamant that it was 2 tablets of 350mg plus trazodone which she had left over from his previous prescription. Patient states that he has been having trouble sleeping for the last few days and patient took the medications mentioned above with the intention of getting a good night's sleep. Patient is adamant that he is not suicidal or homicidal. Patient states that the reason that he called 911 is because he started feeling a bit lightheaded after taking dose medications and got scared because he thought he overdose with Tylenol. at this time, patient states that he feels completely back to normal. Related Data Home Medications ?Medication ?Instructions ?Recorded ?Confirmed buspirone 10 mg tablet mg PO 3XD 06/12/24 07/06/24 clonidine 0.2 mg/24 hr weekly 1 patch transdermal QWEEK 06/12/24 07/06/24 transdermal patch duloxetine 30 mg capsule,delayed mg PO 06/12/24 07/06/24 release lamotrigine 25 mg tablet mg PO DAILY 06/12/24 07/06/24 methadone 10 mg/5 mL oral solution 100 mg PO DAILY 06/12/24 07/06/24 olanzapine 15 mg tablet mg PO 06/12/24 07/06/24 olanzapine 2.5 mg tablet mg PO 06/12/24 07/06/24 trazodone 50 mg tablet 50 - 100 mg PO BEDTIME PRN insomnia 06/12/24 07/06/24 benztropine 1 mg tablet 1 mg PO BID 07/13/24 clonazepam 0.5 mg tablet mg PO 07/13/24 clonidine HCl 0.1 mg tablet mg PO 07/13/24 haloperidol 10 mg tablet 10 mg PO BEDTIME 07/13/24 hydroxyzine pamoate 50 mg capsule 50 mg PO TID 07/13/24 lamotrigine 100 mg tablet 100 mg PO DAILY 07/13/24 lithium carbonate 300 mg 300 mg PO BID 07/13/24 tablet,extended release mirtazapine 7.5 mg tablet 7.5 mg PO BEDTIME 07/13/24 trazodone 100 mg tablet 200 mg PO BEDTIME PRN 07/13/24 Previous Rx's ?Medication ?Instructions ?Recorded acetaminophen 325 mg capsule 325 mg PO QID PRN pain #30 caps 09/03/22 (Tylenol) albuterol sulfate 90 mcg/actuation 2 puff inhalation Q4-6H PRN 06/12/24 aerosol inhaler (Ventolin HFA) shortness of breath or wheezing #8.5 grams budesonide 180 mcg/actuation 1 inh inhalation BID #1 ea 06/12/24 breath activated powder inhaler (Pulmicort Flexhaler) fluticasone furoate 27.5 2 spray intranasal DAILY #5.9 mL 06/12/24 mcg/actuation nasal spray,suspension (Flonase Sensimist) lactulose 10 gram/15 mL oral 10 g (15 mL) PO DAILY PRN 06/12/24 solution constipation #1,500 mL pregabalin 50 mg capsule 50 mg PO BID pain 30 days #60 caps 06/12/24 lorazepam 1 mg tablet (Ativan) 1 mg PO ONCE anxiety #1 tab 06/29/24 fluticasone furoate 100 1 inh inhalation DAILY #30 ea 06/30/24 mcg/actuation blister powder for inhalation (Arnuity Ellipta) Allergies Allergy/AdvReac Type Severity Reaction Status Date / Time dog dander [dogs] Allergy Facial Verified 08/11/24 18:38 Swelling Review of Systems Review of Systems: Constitutional : No Weight loss, No Fever, No Chills, No Night Sweats, No Fatigue, No Malaise ENT/Mouth : No Hearing loss, No Ear Pain, No Nasal Congestion, No Sinus Pain, No Hoarseness, No sore throat, No Rhinorrhea, No Swallowing Difficulty Eyes: No Eye Pain, No Swelling, No Redness, No Foreign Body, No Discharge, No Vision Changes Cardiovascular : No Chest Pain, No SOB, No Dyspnea on Exertion, No Orthopnea, No Edema, No Palpitations Respiratory : No Cough, No Sputum, No Wheezing, No Smoke Exposure, No Dyspnea Gastrointestinal : No Nausea, No Vomiting, No Diarrhea, No Constipation, No abdominal Pain, No Hematochezia, No Melena Genitourinary : no irregular bleeding, No Dysuria, No Urinary Frequency, No Hematuria, No Urinary Incontinence, No Urgency, No Flank Pain, No Urinary Flow Changes, No Hesitancy Musculoskeletal : No joint pain, No Myalgias, No Joint Swelling Skin : No Skin Lesions, No rash Neuro : No Weakness, No Numbness, No Paresthesias, No Loss of Consciousness, Complaining of dizziness earlier today after taking trazodone, patient complaining of chronic insomnia Psych : No Anxiety/Panic, No Depression, No SI/HI/AH/VH, No Social Issues, Heme/Lymph: No Bruising, No Bleeding,No Lymphadenopathy Endocrine : No Polyuria, No Polydipsia, No Temperature Intolerance REPLACED BY [facility] Past Medical History Medical History Allergic rhinitis Opioid abuse Opioid dependence Family history of colon cancer Drug-seeking behavior PTSD (post-traumatic stress disorder) Anxiety and depression Blood in stool Chronic sinusitis Constipation Hyperglycemia Right ankle pain Asthma Surgical History History of sinus surgery History of ankle surgery Family History Family History Father Diabetes Paternal Grandmother Anal cancer Diabetes Paternal Grandfather Diabetes Other FH: mental illness Social History Social History Housing: Apartment Alcohol intake: never Patient Tobacco Use Status: Current everyday Tobacco user Years Smoked: 6 Smoked in Last 30 Days: No e-Cigarette/Vaping Use: Currently Using Second Hand Smoke Exposure: No Use of substances other than those prescribed or required for medical reasons: No Substance Use Type: Painkillers Advance Directives: No Advance Directives Information Provided: Yes service: No Current occupational status: employed and unemployed 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 Oriented X3. No acute distress. Eyes: Pupils equal, round and reactive to light. ENT: Pharynx normal. Neck: Normal inspection. Neck supple. No lymph nodes noted. No crepitus CVS: Normal heart rate and rhythm. Pulses normal. Normal S1 and S2 Respiratory: No respiratory distress. Breath sounds normal. No Wheezing. No rales Abdomen: Soft and nontender. No rigidity. No distention. Skin: Skin warm and dry. Normal skin color. Normal skin turgor. Extremities: No lower extremity edema. No Lacerations. No Rash Neuro: Oriented X 3. No motor deficit. No sensory deficit. Moving all extremities. No slurred speech. CN 2 through 12 grossly intact Psych: calm, cooperative, normal affect Medical Decision Making Medical Decision Making MDM Narrative: earlier today, urine was tested, positive for methadone, negative for other drugs. I discussed with the patient that ideally we should check blood work including acetaminophen and salicylic level. Patient Refused, patient states that he only took 700 mg. patient states that he would really like to be discharged home. Patient is adamant that he is not SI or HI. Lab Data Labs: Lab Results 08/11/24 Range/Units 20:03 Urine Color Yellow Urine Appearance Clear Urine pH 7.0 (5.0-9.0) Ur Specific [place] 1.015 (1.005-1.025) Urine Protein Negative (Neg-Trace) mg/dL Urine Glucose (UA) Negative (Negative) mg/dL Urine Ketones Trace (Negative) mg/dL Urine Blood Trace H (Negative) Urine Nitrite Negative (Negative) Ur Leukocyte Esterase Small (1+) H (Negative) Urine RBC 6-10 H (0-2) /HPF Urine WBC 6-10 H (0-5) /HPF Ur Squamous Epith Cells 0-2 (0-2) /HPF Urine Bacteria None Seen (None Seen) Hyaline Casts 3-5 (0-2) /LPF Urine Opiates Screen Not Detected (Not Detect) Ur Buprenorphine Scrn Not Detected (Not Detect) ng/mL Ur Oxycodone Screen Not Detected (Not Detect) ng/mL Urine Methadone Screen Positive H (Not Detect) ng/mL Urine Fentanyl Screen Not Detected (Not Detect) Ur Barbiturates Screen Not Detected (Not Detect) Ur Phencyclidine Scrn Not Detected (Not Detect) Ur Amphetamines Screen Not Detected (Not Detect) U Benzodiazepines Scrn Not Detected (Not Detect) Urine Cocaine Screen Not Detected (Not Detect) U Marijuana (THC) Screen Not Detected (Not Detect) Discharge Plan Discharge Clinical Impression: Medication side effect Patient Disposition: Home, Self-Care Instructions: Safe Use of Acetaminophen (ED) Additional Instructions: Please follow-up with your primary care physician tomorrow. If you have any worsening or new symptoms, please return to the emergency room or call 911 Prescriptions: No Action Arnuity Ellipta 100 mcg/actuation blister with device 1 inh inhalation DAILY Qty: 30 5RF Rx Instructions: Replaces Pulmicort. Pulmicort not covered by insurance. acetaminophen [Tylenol] 325 mg capsule 325 mg PO QID PRN (Reason: pain) Qty: 30 0RF lamotrigine 25 mg tablet PO DAILY pregabalin 50 mg capsule 50 mg PO BID 30 Days Qty: 60 0RF methadone 10 mg/5 mL solution 100 mg PO DAILY Rx Instructions: 100mg in the am and 40mg in pm clonidine 0.2 mg/24 hr patch weekly 1 patch transdermal QWEEK buspirone 10 mg tablet PO 3XD olanzapine 15 mg tablet PO olanzapine 2.5 mg tablet PO duloxetine 30 mg capsule,delayed release(DR/EC) PO trazodone 50 mg tablet 50 - 100 mg PO BEDTIME PRN (Reason: insomnia) Pulmicort Flexhaler 180 mcg/actuation aerosol powdr breath activated 1 inh inhalation BID Qty: 1 3RF Rx Instructions: Gargle and rinse mouth after use Flonase Sensimist 27.5 mcg/actuation spray,suspension 2 spray intranasal DAILY Qty: 5.9 3RF Rx Instructions: into each nostril albuterol sulfate [Ventolin HFA] 90 mcg/actuation HFA aerosol inhaler 2 puff inhalation Q4-6H PRN (Reason: shortness of breath or wheezing) Qty: 8.5 3RF lactulose 10 gram/15 mL solution 10 g PO DAILY PRN (Reason: constipation) Qty: 1500 0RF lorazepam [Ativan] 1 mg tablet 1 mg PO ONCE Qty: 1 0RF Rx Instructions: Take 30 minutes prior to arrival to procedure mirtazapine 7.5 mg tablet 7.5 mg PO BEDTIME lamotrigine 100 mg tablet 100 mg PO DAILY benztropine 1 mg tablet 1 mg PO BID haloperidol 10 mg tablet 10 mg PO BEDTIME trazodone 100 mg tablet 200 mg PO BEDTIME PRN lithium carbonate 300 mg tablet extended release 300 mg PO BID hydroxyzine pamoate 50 mg capsule 50 mg PO TID clonazepam 0.5 mg tablet PO clonidine HCl 0.1 mg tablet PO Print Language: Citizen Of [place]
[2024-08-11 23:01] VITALS: BP 110/80; PULSE 87; RESP 16; TEMP 36.8
== END 2024-08-11 23:02 | disposition home or self-care (01) ==
PROVIDERS: Emergency Provider Emergency Medicine; PCP Physician Assistant Medical
DX: T39.1X1A Poisoning by 4-Aminophenol derivatives, accidental (unintentional), initial encounter (principal); T43.211A Poisoning by selective serotonin and norepinephrine reuptake inhibitors, accidental (unintentional), initial encounter; R42 Dizziness and giddiness; Y92.039 Unspecified place in apartment as the place of occurrence of the external cause; F51.04 Psychophysiologic insomnia; F11.20 Opioid dependence, uncomplicated; J45.909 Unspecified asthma, uncomplicated; F17.210 Nicotine dependence, cigarettes, uncomplicated; Z79.899 Other long term (current) drug therapy
CPT/HCPCS: 80307; 81001; 87086; 99284

== ENCOUNTER 2024-10-19 10:49 | Outpatient (AMB) | payer MEDICARE, MEDICAID, SELFPAY ==
--- NOTE | 2024-10-19 10:56 | A.OFFPC_ITS ---
Vital Signs 10/19/24 11:05 Height 5 ft 7 in Weight 185 lb BMI 29.0 BP 102/72 Blood Pressure Location Rt brachial Position Sitting Pulse 99 Pulse Source Pulse Oximeter Temp 97.9 F Temp Source Temporal Artery Scan Pulse Oximetry (%) 97 Oxygen Delivery Method Room Air Intake Visit Reasons: [facility], abdominal pain Intake Note: Minh presents in the office today for an ER follow up. Allergies dog dander (dogs) Allergy (Verified 10/19/24 10:58) Facial Swelling Tobacco use date assessed: 10/19/24 Dental Screening Dental Screen Date: 10/19/24 Did you have a dental visit in the last 12 months?: No Did you have a dental problem in the last 6 months where you did not have access to dental care?: No Was dental information given to patient?: Patient declined HPI HPI Comments History of Present Illness Details This is a 23-year-old male with a past medical history of anxiety, opioid dependence, chronic pain, chronic constipation, depression and PTSD presenting for hospital follow up. The patient presented to [facility] on 10/10/2024 for evaluation of intractable nausea and vomiting. He reported being seen at [facility] 6 [facility] and told he had constipation. He had a bowel movement and did not feel better. He denied further BM since that time. He reported vomiting everything shortly after ingesting it. He was also admitted from August 26 to September 06 for intractable abdominal pain and dilation of the biliary duct. GI was consulted, and the patient had a CT AP, right upper quadrant ultrasound, MRCP, HIDA scan, renal ultrasound and EGD which revealed duodenitis and gastritis. Course complicated by opioid withdrawal/high tolerance. Treated with Haldol in ED. Given oxycodone for breakthrough pain while initiating high dose PPI. Patient followed at [facility] in [place]. Prescribed Methadone 100 mg qam, 40 mg qpm. Seen weekly. Positive PhQ9. Denies plan to harm himself/others. Discharged on Carafate 1 gm QID and Protonix increased from 20 mg daily to 40 mg BID. Denies NSAID, ETOH, MJ use. Tolerating bland diet including oatmeal, gatorade and mac cheese. Still had abdominal pain and constipation which has been chronic in the setting of opioid dependence. Discharged on Miralax, but patient says he does not have this prescription. Previously referred to GI for blood in stool and constipation. Did not reschedule appointment after cancelling it. Requests new GI referral. Patient requesting oxycodone multiple times today. ROS: Constitutional: No unexplained weight loss, fevers or chills. No fatigue. No night sweats. Respiratory: No hemoptysis, shortness of breath or wheezing. Cardiovascular: No chest pain, palpitations or pedal edema. Gastrointestinal: No anorexia, nausea, vomiting or diarrhea. See HPI. Skin: No rash Endocrine: No cold or heat intolerance. No polyuria or polydipsia. Physical exam: Constitutional: Alert, in no distress. Neck: Supple, Full range of motion. No lymphadenopathy. No palpable thyroid masses. Respiratory: Clear to auscultation. Cardiovascular: S1 S2 regular. No murmurs. Gastrointestinal: Abdomen soft, mild epigastric tenderness. No rebound or guarding. non-distended. Normal bowel sounds. No palpable masses. Extremities: Warm and well perfused. No clubbing, cyanosis or edema. Psychiatric: Cooperative. [facility] Medical History (Updated 10/19/24 @ 21:34 by SARAHI Merlos) Gastritis Allergic rhinitis Opioid abuse Opioid dependence Family history of colon cancer Drug-seeking behavior PTSD (post-traumatic stress disorder) Anxiety and depression Blood in stool Chronic sinusitis Constipation Hyperglycemia Right ankle pain Asthma Surgical History History of sinus surgery History of ankle surgery Family History Father Diabetes Paternal Grandmother Anal cancer Diabetes Paternal Grandfather Diabetes Other FH: mental illness Social History (Updated 10/19/24 @ 11:05 by Palmira Kurtz MA) Housing: Apartment Alcohol intake: never Patient Tobacco Use Status: Current everyday Tobacco user Years Smoked: 6 e-Cigarette/Vaping Use: Currently Using Second Hand Smoke Exposure: No Substance Use Type: Painkillers service: No Current occupational status: employed and unemployed 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 1. Little interest or pleasure in doing things: more than half the days 2. Feeling down, depressed, or hopeless: more than half the days 3. Trouble falling or staying asleep, or sleeping too much: not at all 4. Feeling tired or having little energy: more than half the days 5. Poor appetite or overeating: more than half the days 6. Feeling bad about yourself - or that you are a failure or have let yourself or your family down: several days 7. Trouble concentrating on things, such as reading the newspaper or watching television: more than half the days 8. Moving or speaking so slowly that other people could have noticed. Or the opposite - being so fidgety or restless that you have been moving around a lot more than usual: not at all 9. Thoughts that you would be better off or of hurting yourself in some way: several days Total score: 12 Depression Screening Interpretation: Positive Depression Screening Follow-up: Existing condition and In treatment Depression Screening Done: Yes Source: Developed by Drs. David Read, Krystin Oquendo, Brian Stauffer and colleagues, with an educational holly from [employer]. Thrive Questionnaire Date Thrive assessed: 03/30/24 I am a: Patient What is your living situation today?: I have a steady place to live Within the past 12 months, did the food you bought not last and you didn't have the money to get more?: Sometimes True Within the past 12 months, did you worry whether your food would run out before you got money to buy more?: Sometimes True Do you have trouble paying for medicines?: Yes Do you have trouble getting transportation to medical appointments?: Yes Do you have trouble paying your heating and electricity bill?: Yes Do you have trouble taking care of your child, family member or friend?: No Do you have trouble with day-to-day activities such as bathing, preparing meals, shopping, managing finances, etc.?: Yes Are you currently unemployed and looking for a job?: Yes Are you interested in more education?: No Please select the resources that you would like help with: Food, Paying for medicine, Transportation and Utilities Currently or been in a relationship where the following occur: No concerns reported THRIVE Score: 4 AUDIT C Alcohol Use Questionnaire (AUDIT-C) 1. How often do you have a drink containing alcohol?: Monthly or less 2. How many drinks containing alcohol do you have on a typical day when you are drinking?: 1 or 2 3. How often do you have six or more drinks on one occasion?: Never Total Score: 1 ISRRAEL-7 AMB Questionnaire ISRRAEL-7 Date ISRRAEL - 7 assessed: 03/30/24 Feeling nervous, anxious, or on edge: 2 = More than half the days Not being able to stop or control worryin = More than half the days Worrying too much about different things: 2 = More than half the days Trouble relaxin = More than half the days Being so restless that it is hard to sit still: 2 = More than half the days Becoming easily annoyed or irritable: 2 = More than half the days Feeling afraid as if something awful might happen: 2 = More than half the days Total ISRRAEL-7 score (0-4 normal; 5-9 mild; 10-14 moderate; 15-21 severe): 14 Source: Developed by Drs. David Read, Krystin Oquendo, Brian Stauffer and colleagues, with an educational holly from [employer]. Physical exam (Primary Care) Vital Signs: Last Vital Signs Temp 97.9 F 10/19/24 11:05 Pulse 99 10/19/24 11:05 BP 102/72 10/19/24 11:05 Pulse Ox 97 10/19/24 11:05 Oxygen Delivery Method Room Air 10/19/24 11:05 BMI result Body Mass Index 29.0 Tobacco/Smoking Status: Tobacco use Status Tobacco use date assessed 10/19/24 10/19/24 11:09 Patient Tobacco Use Status Current everyday Tobacco 10/19/24 11:05 e-Cigarette/Vaping Use Currently Using 10/19/24 11:05 PHQ-9: PHQ-9 Score PHQ-9: Total score 12 10/19/24 17:40 Depression Screening Interpretation: Positive Depression Screening Follow-up: Existing condition and In treatment Thrive Assessment: Date of Thrive Assessment Date Thrive assessed 03/30/24 10/19/24 10:57 Currently or been in a relationship where the following occur: No concerns reported Coding Level of Care Code Est Pt Level 4 (60366) Complex EM visit Add On G2211 Diagnoses Other chronic gastritis without hemorrhage K29.50 Gastritis type: other gastritis Chronicity: chronic Gastritis bleeding: without bleeding Drug-seeking behavior Z76.5 Opioid dependence F11.20 Drug-induced constipation K59.03 Constipation type: drug induced constipation Duodenitis K29.80 Assessment & Plan Assessment & Plan (1) Gastritis: Code(s): K29.70 - Gastritis, unspecified, without bleeding Category: Medical Qualifiers: Gastritis type: other gastritis Chronicity: chronic Gastritis bleeding: without bleeding Qualified Code(s): K29.50 - Unspecified chronic gastritis without bleeding (2) Drug-seeking behavior: Code(s): Z76.5 - Malingerer [conscious simulation] Category: Social Hx (3) Opioid dependence: Code(s): F11.20 - Opioid dependence, uncomplicated Category: Medical (4) Constipation: Code(s): K59.00 - Constipation, unspecified Category: Medical Qualifiers: Constipation type: drug induced constipation Qualified Code(s): K59.03 - Drug induced constipation (5) Duodenitis: Code(s): K29.80 - Duodenitis without bleeding Plan Patient advised to follow up with [facility] regarding methadone dosing. Advised patient I will not prescribe opioids. Tolerating PO at this time, comfortable appearing during visit. Return to ER for recurrence of severe abdominal pain. Complete carafate Rx. Remain on Protonix 40 mg BID until GI evaluation outpa tient. Avoid spicy and acidic foods. Avoid NSAIDs. Referred to gastroenterology. Resume bowel regimen with Miralax. Follow up in 1 month. Orders: Referrals Gastroenterology Referral K29.70 - Gastritis, unspecified, without bleeding, K59.00 - Constipation, unspecified Medications: New pantoprazole 40 mg PO BID 180 tabs 0RF polyethylene glycol 3350 (Miralax) 17 grams PO DAILY 510 grams 5RF
[2024-10-19 11:05] VITALS: BP 102/72; PULSE 99; TEMP 36.6; O2SAT 97; BMI 29.0
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
--- OUTSIDE RECORDS SUMMARY | 2024-10-19 11:41 | XMS_ITS | Clinical Summary ---
Author Organization [facility] Address [address] [place] [address] Phone Care Team Providers Care Facility Environmental Technician Name Role Phone Lina Crews Primary Care Provide r Allergies No known active allergies Medications albuterol 90 mcg/actuation inhaler Inhale 2 puffs into the lungs every 6 (six) hours as needed. 04/19/2024 Active cloNIDine HCL (CATAPRES) 0.2 MG tablet Take 1 tablet by mouth 2 (two) times a day. 05/01/2024 Active STOOL SOFTENER 100 mg capsule Take 1 capsule by mouth 2 (two) times a day. 03/30/2024 Active levocetirizine (XYZAL) 5 MG tablet Take 5 mg by mouth every evening. 02/17/2024 Active mirtazapine (REMERON) 7.5 MG tablet Take 7.5 mg by mouth nightly at bedtime. 05/01/2024 Active QUEtiapine (SEROQUEL) 100 MG tablet Take 1 tablet by mouth 2 (two) times a day as needed. 05/01/2024 Active Social History Tobacco Use Types Packs/Day Years Used Date Smoking Tobacco: Never Smokeless Tobacco: Never Tobacco Cessation:Counseling Given: Not Answered Alcohol Use Standard Drinks/Week Comments Not Currently 0 (1 standard drink = 0.6 oz pur e alcohol) Education Answer Date Recorded Are you interested in more education? Not on jose e 05/04/2024 Are you concerned about learning? Not on file 05/04/2024 No 05/04/2024 No 05/04/2024 Digital Access Answer Date Recorded No 05/04/2024 No 05/04/2024 Reliable internet access at home? Not on file 05/04/2024 Device with a working camera? Not on file Intimate Partner Violence Answer Date R ecorded Are you denied basic needs s uch as food, clothing, or medical care? No 05/04/2024 In the past 12 months have y ou been in a relationship with a person who hurts, threatens, or tries to control you? No 05/04/2024 Are you denied basic needs s uch as food, clothing, or medical care? No 05/04/2024 In the past 12 months have y ou been in a relationship with a person who hurts, threatens, or tries to control you? No 05/04/2024 Sex and Gender Information Value Date Recorded Sex Assigned at Not on file Legal Sex Male 5:11 PM EST Gender Identity Not on file Sexual Orientation Not on file Last Filed Vital Signs Vital Sign Reading Time Taken Comments Blood Pressure 112/68 05/04/2024 10:47 PM EST Pulse 86 05/04/2024 10:47 PM EST Temperature 36.6 C (97.9 F) 05/04/2024 10:47 PM EST Respiratory Rate 13 05/04/2024 10:47 PM EST Oxygen Saturation 98% 05/04/2024 10:47 PM EST Inhaled Oxygen Concentration - - Weight 86.2 kg (190 lb) 05/04/2024 5:24 PM EST Height 170.2 cm (5' 7 ) 05/04/2024 5:24 PM EST Body Mass Index 29.76 05/04/2024 5:24 PM EST Plan of Treatment Health Maintenance Due Date Last Done Comments Adult Td,Tdap Booster 2002 DEPRESSION SCREENING 2014 HPV VACCINES (1 - Male 3-dos e series) 2017 MENINGOCOCCAL VACCINES (B) ( 1 of 2 - Standard) 2018 HEPATITIS C SCREENING 2020 HIV ONE-TIME SCREENING (18-6 5 YEARS) 2020 COVID-19 VACCINE (1 - 2023-2 5 season) 2023 SMOKING Hx and SMOKELESS TOB ACCO SCREENING 05/04/2025 05/04/2024 HEPATITIS A VACCINES Aged Out No long er eligible based on patient's age to complete this topic HIB VACCINES Aged Out No longer eligi ble based on patient's age to complete this topic MENINGOCOCCAL VACCINES (ACWY) Aged Out No longer eligible based on patient's age to complete this topic PNEUMOCOCCAL VACCINES (0-49 years) Aged Out No longer eligible based on patient's age to complete this topic Medical Devices Not on file Insurance MEDICARE PART A & B [facility] PART A & B [place] [facility] PART A [facility] B [facility] Care Teams Facility Environmental Technician Relationship Specialty Start Date End Date Lina Crews PA PCP - General Physician Auto Striper 05/04/24 Additional Source Comments The information contained in this document represents components of the legal health record. It is not the complete legal health record.[facility]
== END 2024-10-19 11:41 | disposition home or self-care (01) ==
LOC: HO.HMCFM 10:50
PROVIDERS: PCP Physician Assistant Medical; Visit Provider Physician Assistant Medical
DX: K29.50 Unspecified chronic gastritis without bleeding (principal); Z76.5 Malingerer [conscious simulation]; F11.20 Opioid dependence, uncomplicated; K59.03 Drug induced constipation; K29.80 Duodenitis without bleeding

== ENCOUNTER → 2024-10-19 10:49 | Outpatient (BNVA) | payer MEDICARE, SELFPAY | PROVIDERS: PCP Physician Assistant Medical; Visit Provider Physician Assistant Medical | DX: Z09 Encounter for follow-up examination after completed treatment for conditions other than malignant neoplasm (principal); K29.50 Unspecified chronic gastritis without bleeding; F11.20 Opioid dependence, uncomplicated; K59.03 Drug induced constipation; T50.905A Adverse effect of unspecified drugs, medicaments and biological substances, initial encounter; K29.80 Duodenitis without bleeding; Z76.5 Malingerer [conscious simulation]; Z13.31 Encounter for screening for depression | CPT/HCPCS: 96127; 99212 ==

== ENCOUNTER 2024-11-11 10:13 | Emergency (ER) | payer MEDICARE, MEDICAID, SELFPAY ==
--- OUTSIDE RECORDS SUMMARY | 2024-11-09 11:00 | XMS_ITS | Continuity of Care Document ---
Author Organization [facility] Address [address] [place] [address] Care Team Providers Care Pension Administrator Name Role Phone Salud Allen Primary Care Physician Encounter 10/26/24 - 11/09/[address] [id number] [place] Encounter Diagnosis Asthma(Discharge Diagnosis) - 10/27/24 Epigastric pain(Discharge Diagnosis) - 10/27/24 Constipation(Discharge Diagnosis) - 10/27/24 Gastritis(Discharge Diagnosis) - 10/27/24 Nicotine use disorder(Discharge Diagnosis) - 10/27/24 Opioid dependence on agonist therapy(Discharge Diagnosis) - 10/27/24 Bipolar affective disorder, mixed, moderate(Discharge Diagnosis) - 10/27/24 High triglycerides(Discharge Diagnosis) - 10/30/24 Nausea(Discharge Diagnosis) - 11/07/24 Discharge Disposition: Discharged to Home Attending Physician: RICHY Allen Brenda Admitting Physician: RICHY Allen Brenda Encounter Type: Inpatient Allergies, Adverse Reactions, Alerts No Known Medication Allergies Medications Albuterol (Eqv-ProAir HFA) 90 mcg/inh inhalation aerosol INHALE 2 PUFFS BY MOUTH EVERY 4 TO 6 HOURS NEEDED FOR WHEEZING OR SHORTNESS OF BREATH Start Date: 10/26/24 Status: Ordered Repeat number: 1 Arnuity Ellipta 100 mcg inhalation powder 100 mcg 1 inh, Inhale, RT Daily, 0 Refill(s) Start Date: 11/09/24 Status: Ordered Repeat number: 1 Indications: Unspecified asthma, uncomplicated; busPIRone 10 mg oral tablet 10 mg = 1 tab, Oral, BID, # 60 tab, 0 Refill(s), Pharmacy: [facility], 170, 10/26/24 16:08:00 EDT, Height/Length Measured, cm, 82.5, 10/26/24 16:08:00 EDT, Weight Dosing, kg Start Date: 11/09/24 Status: Ordered Quantity: 60.0 Unit: tab Repeat number: 1 Depakote 250 mg oral delayed release tablet 250 mg = 1 tab, Oral, TID, # 90 tab, 0 Refill(s), Pharmacy: [facility], 170, 10/26/24 16:08:00 EDT, Height/Length Measured, cm, 82.5, 10/26/24 16:08:00 EDT, Weight Dosing, kg Start Date: 11/09/24 Status: Ordered Quantity: 90.0 Unit: tab Repeat number: 1 fenofibrate 48 mg oral tablet 48 mg = 1 tab, Oral, Daily, # 30 tab, 0 Refill(s), Pharmacy: [facility], 170, 10/26/24 16:08:00 EDT, Height/Length Measured, cm, 82.5, 10/26/24 16:08:00 EDT, Weight Dosing, kg Start Date: 11/09/24 Status: Ordered Quantity: 30.0 Unit: tab Repeat number: 1 Indications: Pure hyperglyceridemia; haloperidol 5 mg oral tablet 5, Oral, BID, # 30 tab, 0 Refill(s), Pharmacy: [facility], 170, 10/26/24 16:08:00 EDT, Height/Length Measured, cm, 82.5, 10/26/24 16:08:00 EDT, Weight Dosing, kg Start Date: 11/09/24 Status: Ordered Quantity: 30.0 Unit: tab Repeat number: 1 methadone Detox 40 mg = 1 tab, Oral, Tab, First Dose: 11/08/24 4:00:00 PM CDT, Stop Date: 11/08/24 4:06:20 PM CDT Start Date: 11/08/24 Stop Date: 11/08/24 Status: Completed Repeat number: 1 methadone Detox 80 mg = 2 tab, Oral, Tab, First Dose: 11/09/24 8:00:00 AM CDT, Stop Date: 11/09/24 7:30:37 AM CDT Start Date: 11/09/24 Stop Date: 11/09/24 Status: Completed Repeat number: 1 methadone Detox 20 mg = 2 tab, Oral, Tab, First Dose: 11/09/24 8:00:00 AM CDT, Stop Date: 11/09/24 7:30:38 AM CDT Start Date: 11/09/24 Stop Date: 11/09/24 Status: Completed Repeat number: 1 methadone 80 mg =, Oral, Daily, 0 Refill(s) Start Date: 11/09/24 Status: Ordered Repeat number: 1 methadone 40 mg =, Oral, every evening, 0 Refill(s) Start Date: 11/09/24 Status: Ordered Repeat number: 1 methadone 10 mg oral tablet 20 mg = 2 tab, Oral, Daily, 0 Refill(s) Start Date: 11/09/24 Status: Ordered Repeat number: 1 methocarbamol 750 mg oral tablet 750 mg = 1 tab, Oral, TID, # 45 tab, 0 Refill(s), 11/23/24 8:00:00 PM CDT, Pharmacy: [facility], 170, 10/26/24 16:08:00 EDT, Height/Length Measured, cm, 82.5, 10/26/24 16:08:00 EDT, Weight Dosing, kg Start Date: 11/09/24 Stop Date: 11/23/24 Status: Ordered Quantity: 45.0 Unit: tab Repeat number: 1 nicotine 21 mg/24 hr transdermal film, extended release 21 mg 1 patches, Topical, every 24 hr, APPLY 1 PATCH TOPICALLY TO THE SKIN IN THE MORNING DO NOT SMOKE WHILE USING PATCH, # 7 patches, 0 Refill(s), 11/16/24 8:00:00 AM CDT, Pharmacy: [facility], 170, 10/26/24 16:08:00 EDT, Height/Length Measured, cm, 82.5, 10/26/24 16:08:00 EDT, Weight Dosing, kg Start Date: 11/09/24 Stop Date: 11/16/24 Status: Ordered Quantity: 7.0 Unit: patches Repeat number: 1 pantoprazole 40 mg oral delayed release tablet 40 mg = 1 tab, Oral, BID, # 60 tab, 0 Refill(s), Pharmacy: [facility], 170, 10/26/24 16:08:00 EDT, Height/Length Measured, cm, 82.5, 10/26/24 16:08:00 EDT, Weight Dosing, kg Start Date: 11/09/24 Status: Ordered Quantity: 60.0 Unit: tab Repeat number: 1 Senna Plus 50 mg-8.6 mg oral tablet 1 tab, Oral, BID, # 15 tab, 0 Refill(s), 11/23/24 8:00:00 AM CDT, Pharmacy: [facility], 170, 10/26/24 16:08:00 EDT, Height/Length Measured, cm, 82.5, 10/26/24 16:08:00 EDT, Weight Dosing, kg Start Date: 11/09/24 Stop Date: 11/23/24 Status: Ordered Quantity: 15.0 Unit: tab Repeat number: 1 Indications: Constipation, unspecified; sucralfate 1 g oral tablet 1 g = 1 tab, Oral, QID(ACHS), # 120 tab, 0 Refill(s), Pharmacy: [facility], 170, 10/26/24 16:08:00 EDT, Height/Length Measured, cm, 82.5, 10/26/24 16:08:00 EDT, Weight Dosing, kg Start Date: 11/09/24 Status: Ordered Quantity: 120.0 Unit: tab Repeat number: 1 Indications: Gastritis, unspecified, without bleeding; Problem List Condition Confirmation Course Effective Dates Status Health St atus Informant Bipolar disease, chronic Confirmed 10/26/24 Active Bipolar affective disorder, mixed, moderate Confirmed Active Opioid dependence on agonist therapy Confirmed 10/27/24 Active Results Laboratory List Name Date Valproic Acid Level 11/07/24 Valproic Acid Level 11/02/24 CBC with Automated Differential 10/27/24 Comprehensive Metabolic Panel 10/27/24 Folate Level 10/27/24 Hemoglobin A1c 10/27/24 Hepatic Function Panel 10/27/24 Lipid Panel 10/27/24 Thyroid Stimulating Hormone 10/27/24 Vitamin B12 Level 10/27/24 Most recent to oldest [Refer ence Range]: 1 2 WBC [3.4-10.8 x10^3/mcL] 7.2 x10^3/mcL 1 *NA* (10/27/24 7:30 AM) RBC [4.14-5.80 x10^6/mcL] 4.94 x10^6/mcL 2 *NA* (10/27/24 7:30 AM) Neutro Auto [Not Estab. %] 55 % 3 *NA* (10/27/24 7:30 AM) Lymph Auto [Not Estab. %] 30 % 4 *NA* (10/27/24 7:30 AM) Hoke Auto [Not Estab. %] 11 % 5 *NA* (10/27/24 7:30 AM) Basophil Auto [Not Estab. %] 1 % 6 *NA* (10/27/24 7:30 AM) BUN [6-20 mg/dL] 11 mg/dL 7 *NA* (10/27/24 7:30 AM) Cholesterol Total [100-199 mg/dL] 205 mg /dL 8 *HI* (10/27/24 7:30 AM) Glucose Level [70-99 mg/dL] 94 mg/dL 9 *NA* (10/27/24 7:30 AM) Potassium Level [3.5-5.2 mmol/L] 4.5 mmo l/L 10 *NA* (10/27/24 7:30 AM) Baso Absolute [0.0-0.2 x10^3/mcL] 0.1 x1 0^3/mcL 11 *NA* (10/27/24 7:30 AM) Valproic Acid Level [50-100 mcg/mL] 72 m cg/mL 12 *NA* (11/07/24 9:12 AM) Valproic Acid Level Test Not Performed m cg/mL 13 *NA* (11/02/24 8:47 AM) MCV [79-97 fL] 84 fL 14 *NA* (10/27/24 7:30 AM) HDL [>39 mg/dL] 33 mg/dL 15 *LOW* (10/27/24 7:30 AM) AST [0-40 IntlUnit/L] 19 IntlUnit/L 16 *NA* (10/27/24 7:30 AM) 18 IntlUnit/L 17 *NA* (10/27/24 7:30 AM) ALT [0-44 IntlUnit/L] 19 IntlUnit/L 18 *NA* (10/27/24 7:30 AM) 20 IntlUnit/L 19 *NA* (10/27/24 7:30 AM) MCHC [31.5-35.7 g/dL] 33.2 g/dL 20 *NA* (10/27/24 7:30 AM) Sodium Level [134-144 mmol/L] 139 mmol/L 21 *NA* (10/27/24 7:30 AM) Folate Level [>3.0 ng/mL] 7.1 ng/mL 22 *NA* (10/27/24 7:30 AM) Lymph Absolute [0.7-3.1 x10^3/mcL] 2.2 x 10^3/mcL 23 *NA* (10/27/24 7:30 AM) Hct [37.5-51.0 %] 41.6 % 24 *NA* (10/27/24 7:30 AM) Triglycerides [0-149 mg/dL] 328 mg/dL 25 *HI* (10/27/24 7:30 AM) Calcium Level [8.7-10.2 mg/dL] 9.8 mg/dL 26 *NA* (10/27/24 7:30 AM) Hoke Absolute [0.1-0.9 x10^3/mcL] 0.8 x1 0^3/mcL 27 *NA* (10/27/24 7:30 AM) Albumin Level [4.3-5.2 g/dL] 4.6 g/dL 28 *NA* (10/27/24 7:30 AM) 4.4 g/dL 29 *NA* (10/27/24 7:30 AM) Protein Total [6.0-8.5 g/dL] 6.9 g/dL 30 *NA* (10/27/24 7:30 AM) 7.0 g/dL 31 *NA* (10/27/24 7:30 AM) MCH [26.6-33.0 pg] 27.9 pg 32 *NA* (10/27/24 7:30 AM) Neutro Absolute [1.4-7.0 x10^3/mcL] 3.9 x10^3/mcL 33 *NA* (10/27/24 7:30 AM) Bilirubin Total [0.0-1.2 mg/dL] 0.2 mg/d L 34 *NA* (10/27/24 7:30 AM) 0.3 mg/dL 35 *NA* (10/27/24 7:30 AM) Hgb [13.0-17.7 g/dL] 13.8 g/dL 36 *NA* (10/27/24 7:30 AM) B12 Level [232-1245 pg/mL] 404 pg/mL 37 *NA* (10/27/24 7:30 AM) Alk Phos [44-121 IntlUnit/L] 96 IntlUnit /L 38 *NA* (10/27/24 7:30 AM) 96 IntlUnit/L 39 *NA* (10/27/24 7:30 AM) Bilirubin Direct [0.00-0.40 mg/dL] <0.08 mg/dL 40 *NA* (10/27/24 7:30 AM) Platelets [150-450 x10^3/mcL] 252 x10^3/ mcL 41 *NA* (10/27/24 7:30 AM) CO2 [20-29 mmol/L] 22 mmol/L 42 *NA* (10/27/24 7:30 AM) Eos Absolute [0.0-0.4 x10^3/mcL] 0.2 x10 ^3/mcL 43 *NA* (10/27/24 7:30 AM) TSH [0.450-4.500 mIntlUnit/mL] 2.640 mIn tlUnit/mL 44 *NA* (10/27/24 7:30 AM) RDW [11.6-15.4 %] 12.9 % 45 *NA* (10/27/24 7:30 AM) Hemoglobin A1c [4.8-5.6 %] 5.2 % 46 *NA* (10/27/24 7:30 AM) Chloride Level [96-106 mmol/L] 102 mmol/ L 47 *NA* (10/27/24 7:30 AM) LC ImmatreGranu [Not Estab. %] 0 % 48 *NA* (10/27/24 7:30 AM) Immat Grans Abs [0.0-0.1 x10^3/mcL] 0.0 x10^3/mcL 49 *NA* (10/27/24 7:30 AM) BUN/Creat Ratio [9-20] 13 50 *NA* (10/27/24 7:30 AM) Globulin [1.5-4.5 g/dL] 2.3 g/dL 51 *NA* (10/27/24 7:30 AM) VLDL Cholesterol Tereso [5-40 mg/dL] 57 mg/ dL 52 *HI* (10/27/24 7:30 AM) LDL Cholesterol Calc [0-99 mg/dL] 115 mg /dL 53 *HI* (10/27/24 7:30 AM) Creatinine Level [0.76-1.27 mg/dL] 0.86 mg/dL 54 *NA* (10/27/24 7:30 AM) eGFR [>59 mL/min/1.73 m2] 126 mL/min/1.7 3 m2 55 *NA* (10/27/24 7:30 AM) Eos, Auto [Not Estab. %] 3 % 56 *NA* (10/27/24 7:30 AM) 1Result Comment: Performed at: - [address] [id number] Baggage Checker: Angella Dougherty MD, Phone: [phone] 2Result Comment: Performed at: [address] [id number] Baggage Checker: Angella Dougherty MD, Phone: [phone] 3Result Comment: Performed at: [address] [id number] Baggage Checker: Angella Dougherty MD, Phone: [phone] 4Result Comment: Performed at: [address] [id number] Baggage Checker: Angella Dougherty MD, Phone: [phone] 5Result Comment: Performed at: [address] [id number] Baggage Checker: Angella Dougherty MD, Phone: [phone] 6Result Comment: Performed at: [address] [id number] Baggage Checker: Angella Dougherty MD, Phone: [phone] 7Result Comment: Performed at: [address] [id number] Baggage Checker: Angella Dougherty MD, Phone: [phone] 8Result Comment: Performed at: [address] [id number] Baggage Checker: Angella Dougherty MD, Phone: [phone] 9Result Comment: Performed at: [address] [id number] Baggage Checker: Angella Dougherty MD, Phone: [phone] 10Result Comment: Performed at: [address] [id number] Baggage Checker: Angella Dougherty MD, Phone: [phone] 11Result Comment: Performed at: [address] [id number] Baggage Checker: Angella Dougherty MD, Phone: [phone] 12Result Comment: Detection Limit = 4 <4 indicates None Detected Toxicity may occur at levels of 100-500. Measurements of free unbound valproic acid may improve the assess- ment of clinical response. Performed at: [address] [id number] Baggage Checker: Angella Dougherty MD, Phone: [phone] 13Result Comment: Test not performed. Insufficient specimen to perform or complete analysis. Detection Limit = 4 <4 indicates None Detected Toxicity may occur at levels of 100-500. Measurements of free unbound valproic acid may improve the assess- ment of clinical response. Performed at: [address] [id number] Baggage Checker: Angella Dougherty MD, Phone: [phone] 14Result Comment: Performed at: [address] [id number] Baggage Checker: Angella Dougherty MD, Phone: [phone] 15Result Comment: Performed at: [address] [id number] Baggage Checker: Angella Dougherty MD, Phone: [phone] 16Result Comment: Performed at: [address] [id number] Baggage Checker: Angella Dougherty MD, Phone: [phone] 17Result Comment: Performed at: - [address] [id number] Baggage Checker: Angella Dougherty MD, Phone: [phone] 18Result Comment: Performed at: [address] [id number] Baggage Checker: Angella Dougherty MD, Phone: [phone] 19Result Comment: Performed at: [address] [id number] Baggage Checker: Angella Dougherty MD, Phone: [phone] 20Result Comment: Performed at: [address] [id number] Baggage Checker: Angella Dougherty MD, Phone: [phone] 21Result Comment: Performed at: [address] [id number] Baggage Checker: Angella Dougherty MD, Phone: [phone] 22Result Comment: A serum folate concentration of less than 3.1 ng/mL is considered to represent clinical deficiency. Performed at: [address] [id number] Baggage Checker: Angella Dougherty MD, Phone: [phone] 23Result Comment: Performed at: [address] [id number] Baggage Checker: Angella Dougherty MD, Phone: [phone] 24Result Comment: Performed at: [address] [id number] Baggage Checker: Angella Dougherty MD, Phone: [phone] 25Result Comment: Performed at: [address] [id number] Baggage Checker: Angella Dougherty MD, Phone: [phone] 26Result Comment: Performed at: [address] [id number] Baggage Checker: Angella Dougherty MD, Phone: [phone] 27Result Comment: Performed at: [address] [id number] Baggage Checker: Angella Dougherty MD, Phone: [phone] 28Result Comment: Performed at: [address] [id number] Baggage Checker: Angella Dougherty MD, Phone: [phone] 29Result Comment: Performed at: [facility] [id number] Baggage Checker: Angella Dougherty MD, Phone: [phone] 30Result Comment: Performed at: [facility] [id number] Baggage Checker: Angella Dougherty MD, Phone: [phone] 31Result Comment: Performed at: [facility] [id number] Baggage Checker: Angella Dougherty MD, Phone: [phone] 32Result Comment: Performed at: [facility] [id number] Baggage Checker: Angella Dougherty MD, Phone: [phone] 33Result Comment: Performed at: [facility] [id number] Baggage Checker: Angella Dougherty MD, Phone: [phone] 34Result Comment: Performed at: [facility] [id number] Baggage Checker: Angella Dougherty MD, Phone: [phone] 35Result Comment: Performed at: [facility] [id number] Baggage Checker: Angella Dougherty MD, Phone: [phone] 36Result Comment: Performed at: [facility] [id number] Baggage Checker: Angella Dougherty MD, Phone: [phone] 37Result Comment: Performed at: [facility] [id number] Baggage Checker: Angella Dougherty MD, Phone: [phone] 38Result Comment: Performed at: [facility] [id number] Baggage Checker: Angella Dougherty MD, Phone: [phone] 39Result Comment: Performed at: [facility] [id number] Baggage Checker: Angella Dougherty MD, Phone: [phone] 40Result Comment: Performed at: 01 - [facility] [id number] Baggage Checker: Angella Dougherty MD, Phone: [phone] 41Result Comment: Performed at: [facility] [id number] Baggage Checker: Angella Dougherty MD, Phone: [phone] 42Result Comment: Performed at: [address] [id number] Baggage Checker: Angella Dougherty MD, Phone: [phone] 43Result Comment: Performed at: [facility] [id number] Baggage Checker: Angella Dougherty MD, Phone: [phone] 44Result Comment: Performed at: [address] [id number] Baggage Checker: Angella Dougherty MD, Phone: [phone] 45Result Comment: Performed at: [address] [id number] Baggage Checker: Angella Dougherty MD, Phone: [phone] 46Result Comment: Prediabetes: 5.7 - 6.4 Diabetes: >6.4 Glycemic control for adults with diabetes: <7.0 Performed at: [address] [id number] Baggage Checker: Angella Dougherty MD, Phone: [phone] 47Result Comment: Performed at: [address] [id number] Baggage Checker: Angella Dougherty MD, Phone: [phone] 48Result Comment: Performed at: [facility] [id number] Baggage Checker: Angella Dougherty MD, Phone: [phone] 49Result Comment: Performed at: [address] [id number] Baggage Checker: Angella Dougherty MD, Phone: [phone] 50Result Comment: Performed at: [address] [id number] Baggage Checker: Angella Dougherty MD, Phone: [phone] 51Result Comment: Performed at: [facility] [id number] Baggage Checker: Angella Dougherty MD, Phone: [phone] 52Result Comment: Performed at: [facility] [id number] Baggage Checker: Angella Dougherty MD, Phone: [phone] 53Result Comment: Performed at: [facility] [id number] Baggage Checker: Angella Dougherty MD, Phone: [phone] 54Result Comment: Performed at: [facility] [id number] Baggage Checker: Angella Dougherty MD, Phone: [phone] 55Result Comment: Performed at: [address] [id number] Baggage Checker: Angella Dougherty MD, Phone: [phone] 56Result Comment: Performed at: [address] [id number] Baggage Checker: Angella Dougherty MD, Phone: [phone] Vital Signs Most recent to oldest [Reference Range]: 1 2 3 Temperature Oral [35.8-37.9 Deg C] 36.7 Deg C (10/29/24 8:00 PM) 36.1 Deg C (10/26/24 2:34 PM) Temperature Oral Teton 98.1 Deg F (10/29/24 8:00 PM) Temperature Oral [place] AMB 96.98 Deg F (10/26/24 2:34 PM) Temperature Skin [36.5-37.5 Deg C] 36.1 Deg C *LOW* (11/08/24 7:58 PM) 36.1 Deg C *LOW* (11/07/24 9:14 PM) 36.1 Deg C *LOW* (11/02/24 7:47 PM) Temperature Skin [place]eton 96.98 Deg F (11/08/24 7:58 PM) 96.98 Deg F (11/07/24 9:14 PM) 96.98 Deg F (11/02/24 7:47 PM) Peripheral Pulse Rate [60-100 bpm] 91 bpm (11/08/24 7:58 PM) 98 bpm (11/07/24 9:14 PM) 96 bpm (11/07/24 9:26 AM) Heart Rate Monitored [60-100 bpm] 83 bpm (11/06/24 11:32 AM) 89 bpm (11/01/24 8:53 AM) 83 bpm (10/30/24 11:26 AM) Respiratory Rate [14-20 br/min] 18 br/min (11/09/24 8:30 AM) 18 br/min (11/09/24 8:30 AM) 18 br/min (11/08/24 5:06 PM) Blood Pressure [90-140/60-90 mmHg] 120/73mmHg (11/08/24 7:58 PM) 136/89mmHg (11/07/24 9:14 PM) 120/79mmHg (11/06/24 11:32 AM) Blood Pressure Location Left arm (11/05/24 7:51 PM) Temperature Type Skin (11/08/24 7:58 PM) Skin (11/07/24 9:14 PM) Skin (11/02/24 7:47 PM) Social History Social History Type Response Tobacco Smoking tobacco use: Vape. Type: E-Cigarettes. Sex Male Sex Representation Male (finding) Hospital Discharge Instructions Patient Education 11/09/2024 09:38:07 Managing Bipolar Disorder Managing Bipolar Disorder If you have been diagnosed with bipolar disorder, you may be relieved to now know that this is why you have felt or behaved a certain way. You may also feel overwhelmed about the treatment ahead, howto get needed support, and how to deal with your condition each day. With care and support, you canlearn to manage your symptoms and live with your condition. How to manage lifestyle changes Managing stress Stress is your body's reaction to life changes and events, both good and bad. Stress can affect your condition, so it is important to learn how to manage stress. Some techniques to help manage stressinclude: ??? Meditation, muscle relaxation, and breathing exercises. ??? Exercise. Even a short daily walk can help to lower stress levels. ??? Getting enough good-quality sleep. Too little sleep can trigger the emotional highs of demetra. ??? Making a schedule to manage your time. A daily schedule can help keep you from feeling overwhelmed by tasks and deadlines. ??? Spending time on hobbies you enjoy. Medicines Your health care provider may suggest certain medicines if he or she thinks that these will help improve your condition. Avoid using caffeine, alcohol, and other substances that may prevent your medicines from working properly. Be sure to: ??? Talk with your pharmacist or health care provider about all the medicines that you take, their possible side effects, and which medicines are safe to take together. ??? Make it your goal to take part in all treatment decisions with your health care provider (shared decision-making). Ask about possible side effects of medicines, and share how you feel about having those side effects. It is best if shared decision-making is part of your total treatment plan. If you are taking medicines as part of your treatment, do not stop taking them before asking if it is safe to stop. You may need to have the medicine slowly decreased (tapered) over time to lower therisk of harmful side effects. Relationships Spend time with people whom you trust and with whom you feel a sense of understanding and calm. Tryto find friends or family members who make you feel safe and can help you control feelings of demetra. Consider going to couples counseling, family education classes, or family therapy to: ??? Teach your loved ones about your condition and suggest ways they can support you. ??? Help resolve conflicts. ??? Help develop communication skills in your relationships. How to recognize changes in your condition Everyone responds differently to treatment for bipolar disorder. Signs that your condition is improving include: ??? Leveling of your mood. You may have less anger and excitement about daily activities, and your low moods may not be as bad. ??? Your symptoms being less intense. ??? Feeling calm more often. ??? Thinking clearly. ??? Not experiencing consequences for extreme behavior. ??? Feeling like your life is settling down. ??? Your behavior seeming more normal to you and to other people. Signs that your condition may be getting worse include: ??? Sleep problems. ??? Moods cycling between deep lows and unusually high energy. ??? Extreme emotions, or more anger toward loved ones. ??? Staying away from others, or isolating yourself. ??? A feeling of power or superiority. ??? Completing a lot of tasks in a very short amount of time. ??? Unusual thoughts and behaviors. ??? Thoughts of suicide. Follow these instructions at home: Medicines ??? Take ceqb-xxs-vcyhcjf and prescription medicines only as told by your health care provider or pharmacist. ??? Ask your pharmacist what aqyu-fwp-lqhxukv cold medicines you should avoid. Some medicines can make symptoms worse. General instructions ??? Ask for support from trusted family members or friends to make sure you stay on track with yourtreatment. ??? Keep a journal to write down your daily moods, medicines, sleep habits, and life events. This may bring you more success with your treatment. ??? Make and follow a routine for daily meal times. Eat healthy foods, such as whole grains, vegetables, and fresh fruit. ??? Try to go to sleep and wake up around the same time every day. ??? Avoid using products that contain nicotine or tobacco. If you want help quitting, ask your health care provider. ??? Keep all follow-up visits. This is important. Where to find support Helplines and other support ??? Substance Abuse and Mental Health Services Administration ([facility]) National Helpline: 9-096-254-HELP (3304) ??? National Index on Mental Illness ([facility]IS) HelpLine: 8-670-911-CHRIS (0690) or email ??? Depression and Bipolar Support Index: dbsalliance.org Talking to others ??? Try making a list of the people you may want to tell about your condition, such as the people you trust most. ??? Plan what you are willing and not willing to talk about. Think about your needs ahead of time and how others can support you. ??? Let your loved ones know when they can share advice and when you would just like them to listen. ??? Give your loved ones information about bipolar disorder and encourage them to learn about the condition. Finances Not all insurance plans provide the same coverage for mental health care, so it is important to check with your insurance carrier. If paying for co-pays or counseling services is a problem, search for a local or [facility] mental health care center. Public mental health care services may be offered there at a low cost or no cost when you are not able to see a private health care provider. If you are taking medicine for depression, you may be able to get the generic form, which may cost less than brand-name medicine. Some makers of prescription medicines also offer help to people who cannot afford the medicines they need. Questions to ask your health care provider: If you are taking medicines ??? How long do I need to take medicine? Are there any long-term side effects of my medicine? Are there any alternatives to taking medicine? Other questions ??? How would I benefit from therapy? How often should I follow up with a health care provider? Contact a health care provider if: ??? Your symptoms get worse or they do not get better with treatment. Get help right away if: ??? You have thoughts about harming yourself or others. If you ever feel like you may hurt yourself or others, or have thoughts about taking your own life,get help right away. Go to your nearest emergency department or: ??? Call your local emergency services (911 in the [place] ??? Call a suicide crisis helpline, such as the National Suicide Prevention Lifeline at or 988 in the [place] This is open 24 hours a day in the [place] ??? If you???re a : ??? Call 988 and press 1. This is open 24 hours a day. ??? Text the Veterans Crisis Line at 494635. Summary ??? Stress can affect your condition, so it is important to learn how to manage stress. ??? Aim to take part in all treatment decisions (shared decision-making). ??? Teach your loved ones about your condition and suggest ways they can support you. ??? Contact a health care provider if your symptoms get worse or they do not get better with treatment. This information is not intended to replace advice given to you by your health care provider. Make sure you discuss any questions you have with your health care provider. Document Revised: 10/28/2023 Document Reviewed: 09/04/2021 Elsevier Patient Education ?? 2024 [employer] Follow Up Care 10/26/2024 11:15:32 With:[facility] Address:Unknown When:11/09/2024 Comments:Please resume methadone management tomorrow With:Salud Allen Address: [address] [place] [phone] Business (1) When:1 month With:Russell Grijalva Address:Unknown When:1 to 2 days Comments:You have been referred for VNA services at [facility] to help with medication With:[facility] Address: [address] [place] [phone]- When:1 to 2 weeks Comments:You have been referred to our partial hospitalization program. The program will contact you to schedule an intake date With:[facility] ([facility]) Address: [address] [place] [phone] When:11/13/2024 08:00:00 Comments:You have the following appointment with your psychiatrist, Dr. Hung History and physical note * Isauro, Nurse Practitioner for [facility]: PERFORM Event Display: History and Physical Authored Date: [id number] History of Present Illness Patient is a 24 yr old male with significant health conditions including: MDD, Mixed Cluster B Personality D/O, Alcohol Use D/O, Adjustment D/O, TBI causing neurocognitive d/o, occupational/defiant behavior,??presumed gastritis, asthma, opioid use disorder on methadone, PTSD, ADHD, bipolar disorderwith psychosis who was admitted to [facility] on 10/26 following [facility] visit for N/V, ABD pain, where pt had SI. Patient is pleasant and cooperative at bedside. Patient denies any other physiological conditions requiring management. Pt??reports anxiety 10/10 and depression 10/10 during examination.??Pt?denies any other??medical concerns at this time. CBC/CMP/EKG pending. ACTUARIAL CONSULTANT will F/U PRN for medical concerns. ?? Past Family Medical History Paternal side: Unsure Maternal Side: Denies ?? Substance Abuse History Tobacco: Vapes nicotine a lot, (20x/day). Last use: 10/26/24?? ETOH: Denies but chart has documented hx??of severe ETOH use d/o. Illicit: Hx of??Oxycodone abuse per pt, on??100mg Methadone in the AM, 40mg afternoon. Denies any Heroin use/Hx ?? Social History Lives alone ?? Surgeries: None ?? Allergies: ??NKA Review of Systems Constitutional:?[No fevers, chills, sweats] Eye:?[No recent visual problems] ENMT:?[No ear pain, nasal congestion, sore throat] Respiratory:?[No shortness of breath, cough] Cardiovascular:?[No Chest pain, palpitations, syncope] Gastrointestinal:?[No?? diarrhea] Pt has had ongoing epigastric pain for the last 3 months, rates 01/05 currently. Pt has also had N/V for the last week, usually after every meal, last episode of vomiting last night. Pt was at [facility] for management, which included Zofran, Sucralfate, Pantoprazole, and clear liquid diet. CT scan showed no s/s of bleed, moderate stool burden noted, determined to begastritis/duodenitis.??Methocarbamol, Dilaudid, and Acetaminophen for pain management. Pt placed onMiraLAX BID, Senna BID, and Bisacodyl PRN for constipation. Pt reports he has not had a BM for 2 weeks, but also tells ACTUARIAL CONSULTANT they are?? hard and bloody. ??Lower ABD pain present, most likely r/t consti pation/inflammation. Genitourinary:?[No hematuria] Gil/Lymph:?[Negative for bruising tendency, swollen lymph glands] Endocrine:?[Negative for excessive thirst, excessive hunger] Musculoskeletal:?[No back pain, neck pain, joint pain, muscle pain, decreased range of motion] Integumentary:?[No rash, pruritus, abrasions] Neurologic: [Alert & oriented X 4] Psychiatric: Anxiety & depression both 01/05 today Physical Exam Vitals & Measurements T:??36.1?C (Skin)?? HR:??85(Monitored)?? RR:??18?? RR:??18?? BP:??112/59?? BP:??121/67(Supine)?? SpO2:??96%?? WT:??82.5??kg?? WT:??82.5??kg?? Constitutional: [Alert, well nourished, and no acute distress] Head: [normal cephalic atraumatic] Eye: [EOMI, PERRL] Neck: [No jugular venous distention, no bruits] ENT: [Mucous membranes moist , oropharynx clear] Cardiovascular: [Regular rate and rhythm , normal S1, S2, no murmurs gallops and rubs,no edema??] Respiratory: [No respiratory distress clear to auscultation bilaterally , good air entry bilaterally, no stridor] Gastrointestinal: ABD tender to palpation in epigastric area and BLQ; BS(+), soft, non-distended.?? Genitourinary: [not examined] Musculoskeletal: [Distal pulses normal, no injury or deformity] Neurological: [Alert and oriented x 3, strength 5 out of 5 throughout, no focal deficits, sensationintact throughout] Skin: [Warm, dry, no rash] Lymphatic: [No lymphadenopathy??] ? CRANIAL NERVES - Pt declined, anxious, wants to talk with psychiatry- Assessment/Plan Asthma - Started on??home??Arnuity and??Albuterol PRN. - Will continue to monitor/adjust/add to therapy PRN. Ordered: fluticasone, Shortness of Breath 100 mcg 1 inh, Inhale, Powder, RT Daily, First Dose: 10/27/24 10:00:00 EDT ?? Constipation - Started on Senna Plus - Placed on MiraLAX??BID and Bisacodyl supp??PRN per [facility]??d/c recommendations. - Encouraged good PO fluid intake, higher fiber food choices, and ambulation to promote health BMs.?? - Will continue to monitor/adjust/add to therapy PRN. Ordered: bisacodyl, Constipation 10 mg = 1 supp, Rectal, Supp, Daily, PRN constipation, First Dose: 10/27/2510:09:00 EDT, 10/27/24 11:09:00 EDT polyethylene glycol 3350, Constipation 17 g = 1 EA, Oral, Powder-Recon, BID, First Dose: 10/27/24 11:00:00 EDT, 10/27/24 11:00:00 EDT sennosides-docusate, Constipation 1 tab, Oral, Tab, BID, First Dose: 10/27/24 10:00:00 EDT Low Fiber/Soft Diet ?? Epigastric pain - Lidocaine patch over epigastric area for pain.?? - Methocarbamol TID per [facility] d/c; will consider Dilaudid per [facility]??d/c if necessary.?? - Tylenol PRN, warm compresses, rest.?? - Will continue to monitor/adjust/add to therapy PRN. Ordered: lidocaine topical, pain-moderate (4 to 6 pain scale) 1 patches, TD, Film, Daily, First Dose: 10/27/24 9:27:00 EDT pantoprazole, GERD 40 mg = 1 tab, Oral, Tab-DR, BID, First Dose: 10/27/24 10:00:00 EDT Low Fiber/Soft Diet ?? Gastritis - Continue with Sucralfate & Pantoprazole per [facility] d/c recs. - Zofran pending; EKG ordered to determine QTC.?? - Encouraged good PO fluid intake with N/V.?? - [place] diet ordered for inflammation.?? - Will continue to monitor/adjust/add to therapy PRN. Ordered: sucralfate, GERD 1 g = 1 tab, Oral, Tab, QID(ACHS), First Dose: 10/27/24 12:00:00 EDT, 10/27/24 12:00:00 EDT Low Fiber/Soft Diet ?? Nicotine use disorder - Vapes nicotine a lot, last vaped yesterday. 20x/day. - Nicotine patch & gum. - Will provide cessation counseling throughout this hospitalization - Will continue to monitor/adjust/add to therapy PRN. Ordered: nicotine, Nicotine Cravings 2 mg = 1 EA, Chewed, Gum, every 1 hr, PRN smoking cessation, First Dose: 10/27/24 11:04:00 EDT, 10/27/24 11:04:00 EDT nicotine, Nicotine Cravings 21 mg 1 patches, TD, Film-ER, Daily, First Dose: 10/28/24 9:00:00 EDT ?? Opioid dependence on agonist therapy - Hx of oxycodone abuse, on Methadone for management (100mg AM and 40mg BID).?? - Will provide cessation counseling throughout this hospitalization - Will continue to monitor/adjust/add to therapy PRN. ?? IS THE PATIENT MEDICALLY STABLE TO PARTICIPATE IN AN INPATIENT/OUTPATIENT PSYCHIATRIC TREATMENT PROGRAM? ?? YES. Diagnosis Coding Information F31.9?Bipolar disorder, unspecified K59.00?Constipation, unspecified R10.13?Epigastric pain K29.70?Gastritis, unspecified, without bleeding F17.200?Nicotine dependence, unspecified, uncomplicated F11.20?Opioid dependence, uncomplicated J45.909?Unspecified asthma, uncomplicated ? Problem List/Past Medical History Ongoing Bipolar disease, chronic Historical Medications Inpatient acetaminophen, 650 mg= 2 tab, Oral, every 6 hr, PRN Arnuity Ellipta 100 mcg inhalation powder, 100 mcg= 1 inh, Inhale, RT Daily bisacodyl, 10 mg= 1 supp, Rectal, Daily, PRN dicyclomine, 20 mg= 2 cap, Oral, every 8 hr, PRN hydrOXYzine pamoate, 50 mg= 1 cap, Oral, QID, PRN lidocaine 4% topical film, 1 patches, TD, Daily loperamide, 2 mg= 1 cap, Oral, every 4 hr, PRN melatonin, 6 mg= 2 tab, Oral, Bedtime, PRN methadone, 40 mg= 1 tab, Oral, every evening methadone, 80 mg= 2 tab, Oral, Daily methadone, 20 mg= 2 tab, Oral, Daily methocarbamol, 750 mg= 1 tab, Oral, TID MiraLax, 17 g= 1 EA, Oral, BID Mylanta Maximum Strength, 30 mL, Oral, every 6 hr, PRN nicotine 14 mg/24 hr transdermal film, extended release, 14 mg= 1 patches, TD, Daily nicotine 2 mg oral transmucosal gum, 2 mg= 1 EA, Chewed, every 1 hr, PRN nicotine 21 mg/24 hr transdermal film, extended release, 21 mg= 1 patches, TD, Daily OLANZapine, 5 mg= 1 tab, Oral, BID ondansetron, 8 mg= 2 tab, Oral, every 8 hr, PRN pantoprazole, 40 mg= 1 tab, Oral, BID ProAir HFA 90 mcg/inh inhalation aerosol, 90 mcg= 1 puffs, Oral, every 6 hr, PRN Senna Plus 50 mg-8.6 mg oral tablet, 1 tab, Oral, BID sucralfate, 1 g= 1 tab, Oral, QID(ACHS) traZODone, 50 mg= 1 tab, Oral, Bedtime Home Albuterol (Eqv-ProAir HFA) 90 mcg/inh inhalation aerosol, INHALE 2 PUFFS BY MOUTH EVERY 4 TO 6 HOURS NEEDED FOR WHEEZING OR SHORTNESS OF BREATH Arnuity Ellipta 100 mcg inhalation powder, INHALE 1 PUFF BY MOUTH EVERY DAY AT THE SAME TIME RINSE MOUTH AFTER USING buPROPion 150 mg/24 hours (XL) oral tablet, extended release, 150 mg= 1 tab, Oral, every 24 hr clonazePAM 0.5 mg oral tablet, 0.5 mg= 1 tab, Oral, BID,?Not taking: dupliccate order clonazePAM 0.5 mg oral tablet, 0.5 mg= 1 tab, TAKE 1 TABLET BY MOUTH TWICE DAILY cloNIDine 0.2 mg oral tablet, TAKE 1 TABLET BY MOUTH EVERY DAY doxepin 10 mg oral capsule, TAKE 1 CAPSULE BY MOUTH EVERY NIGHT AT BEDTIME haloperidol 5 mg oral tablet, TAKE 1/2 TABLET BY MOUTH ONCE DAILY FOR 3 DAYS THEN IF TOLERATED INCREASE TO 1 TABLET ONCE DAILY hydrOXYzine pamoate 50 mg oral capsule, 50 mg= 1 cap, Oral, QID, PRN lactulose 10 g/15 mL oral syrup, TAKE 15 ML BY MOUTH AT BEDTIME FOR 10 DAYS lamoTRIgine 100 mg oral tablet, TAKE 1 TABLET BY MOUTH AT BEDTIME lurasidone 20 mg oral tablet, 20 mg= 1 tab, Oral, Daily methadone, 100 mg, Daily methadone, 40 mg, every evening methocarbamol 750 mg oral tablet, TAKE 1 TABLET BY MOUTH THREE TIMES A DAY,?Not taking metoclopramide 10 mg oral tablet, TAKE 1 TABLET BY MOUTH EVERY 6 HOURS NEEDED FOR NAUSEA FOR UP TO 7 DAYS nicotine 21 mg/24 hr transdermal film, extended release, APPLY 1 PATCH TOPICALLY TO THE SKIN IN THEMORNING DO NOT SMOKE WHILE USING PATCH ondansetron 4 mg oral tablet, disintegrating, 4 mg= 1 tab, Oral, Once, PRN pantoprazole 40 mg oral delayed release tablet, 40 mg= 1 tab, Oral, BID prochlorperazine 5 mg oral tablet, 5 mg= 1 tab, Oral, TID, PRN sucralfate 1 g oral tablet, 1 g= 1 tab, Oral, QID traZODone 150 mg oral tablet, 150 mg= 1 tab, Oral, Bedtime Allergies No Known Medication Allergies Social History Tobacco - 10/26/2024 Smoking tobacco use: Vape. Type: E-Cigarettes. Immunizations No qualifying data available. Lab Results No Qualifying Results Electronically Signed on 10/27/2024 11:15 AM Isauro, Nurse Practitioner for [facility] Internal medicine Consult note * SAUL Richardson, Grant: PERFORM Event Display: Internal Medicine Consultation Authored Date: [id number] Subjective 10/27:??Patient is a 24 yr old male with significant health conditions including: MDD, Mixed Cluster B Personality D/O, Alcohol Use D/O, Adjustment D/O, TBI causing neurocognitive d/o, occupational/defiant behavior,??presumed gastritis, asthma, opioid use disorder on methadone, PTSD, ADHD, bipolar disorder with psychosis who was admitted to [facility] on 10/26 following [facility] visit for N/V, ABD pain, where pt had SI. Patient is pleasant and cooperative at bedside. Patient denies any other physiological conditions requiring management. Pt??reports anxiety 10/10 and depression 10/10 during examination.??Pt?denies any other??medical concerns at this time. CBC/CMP/EKG pending. ACTUARIAL CONSULTANT will F/U PRN for medical concerns. ?? 10/29/24: Constipation f/u. Patient reports a hard,??difficult bloody BM after??about??a??week of constipation.??He describes red??blood.??He states to feel tenderness at the anal surface. And, he continues having??GI??pain, he??is wearing??the lido??patch on epigastric /??abd. region. ??Will continue monitoring for f/t of hemoccult cards r/o GI bleed. I will add Colace daily and f/u. He is encourage to drink plenty of fluid and increase his physical activity / ambulate. Remaining ROS/ PE negative.? 10/30: ??ACTUARIAL CONSULTANT F/Ued with??pt. Pt reports / epigastric pain, is due for pain medication (Methocarbamol). Pt??reports his last??BM was on 10/27 when he??received Biscodyl??supp PRN. Pt reports stools are hard' and that he is bleeding with passing stools.??Pt also reports pain in??rectum r/t hard stool s. Pt switched??to??Lactulose??BID from Miralax??to help??with??BMs. Remainder??of ROS/PE negative for any acute medical concerns.??No overnight medical??events reported. Patient participating with therapy and cares. Clinical??flowsheet reviewed. VSS. BP at goal. Patient denies nausea, vomiting, diarrhea, headaches, fever, chills, chest pain, palpitations, dizziness, dyspnea, cough,??wheezing. Will continue to monitor closely ?? 11/01: ??ACTUARIAL CONSULTANT F/Ued with??pt. Pt declined to me with ACTUARIAL CONSULTANT, declined??ROS/PE. No overnight medical??eventsreported. Patient participating with therapy and cares. Clinical??flowsheet reviewed. VSS. BP reviewed. Will continue to monitor closely ?? 11/03: ??ACTUARIAL CONSULTANT F/Ued with??pt. Pt reports he has??been??having BMs,??one yesterday, one this AM. Denies any blood in the stool. Pt reports stomach pain is 8/10, reports it improves with medications (/10). Pt only taking scheduled, not PRNs; recommended trying Tylenol PRN for further management. Pt eating, denies any n/v. Remainder of?ROS??negative for any acute medical concerns. Pt declined PE with ACTUARIAL CONSULTANT today.??No overnight medical??events reported. Patient participating with therapy and cares. Clinical??flowsheet reviewed. VSS. BP reviewed. Patient denies nausea, vomiting, diarrhea, constipation, headaches, fever, chills, chest pain, palpitations, dizziness, dyspnea, cough,??wheezing. Will continue to monitor closely. ?? 11/04/2024 Pt seen in his room to f/u on abdominal pain/constipation. He reports he has been having BMs and he??is eating well. Pt reports having had a BM this morning. His abdomen is firm with +BS.??Patient denies nausea, vomiting, diarrhea, constipation, headaches, fever, chills, chest pain, palpitations, dizziness, dyspnea, cough,??wheezing. Will continue to monitor closely. ?? Review of Systems Constitutional:?[No fevers, chills, sweats] Eye:?[No recent visual problems] ENMT:?[No ear pain, nasal congestion, sore throat] Respiratory:?[No shortness of breath, cough] Cardiovascular:?[No Chest pain, palpitations, syncope] Gastrointestinal:?[No nausea, vomiting, diarrhea] constipation Genitourinary:?[No hematuria] Heme/Lymph:?[Negative for bruising tendency, swollen lymph glands] Endocrine:?[Negative for excessive thirst, excessive hunger] Musculoskeletal:?[No back pain, neck pain, joint pain, muscle pain, decreased range of motion] Integumentary:?[No rash, pruritus, abrasions] Neurologic: [Alert & oriented X 4] Psychiatric:?[No anxiety, depression]?? Objective Vitals & Measurements RR:??18?? RR:??18?? BP:??103/61(Sitting)?? SpO2:??97%?? Physical Exam Constitutional: [Alert, well nourished, and no acute distress] Head: [normal cephalic atraumatic] Eye: [EOMI, PERRL] Neck: [No jugular venous distention, no bruits] ENT: [Mucous membranes moist , oropharynx clear] Cardiovascular: [Regular rate and rhythm , normal S1, S2, no murmurs gallops and rubs,no edema??] Respiratory: [No respiratory distress clear to auscultation bilaterally , good air entry bilaterally, no stridor] Gastrointestinal: [Firm, non-distending, +BS] Genitourinary: [not examined] Musculoskeletal: [Distal pulses normal, no injury or deformity] Neurological: [Alert and oriented x 3, strength 5 out of 5 throughout, no focal deficits, sensationintact throughout] Skin: [Warm, dry, no rash] Lymphatic: [No lymphadenopathy??] Lab Results No Qualifying Results Medications Inpatient acetaminophen, 650 mg= 2 tab, Oral, every 6 hr, PRN Arnuity Ellipta 100 mcg inhalation powder, 100 mcg= 1 inh, Inhale, RT Daily Ativan, 0.5 mg= 1 tab, Oral, BID, PRN bisacodyl, 10 mg= 1 supp, Rectal, Daily, PRN busPIRone, 10 mg= 1 tab, Oral, BID Depakote, 250 mg= 1 tab, Oral, TID dicyclomine, 20 mg= 2 cap, Oral, every 8 hr, PRN fenofibrate, 48 mg= 1 tab, Oral, Daily Haldol, 5 mg= 1 tab, Oral, BID hydrOXYzine pamoate, 50 mg= 1 cap, Oral, QID, PRN lactulose, 20 g= 30 mL, Oral, BID lidocaine 4% topical film, 1 patches, TD, Daily loperamide, 2 mg= 1 cap, Oral, every 4 hr, PRN melatonin, 6 mg= 2 tab, Oral, Bedtime, PRN methadone, 40 mg= 1 tab, Oral, every evening methadone, 80 mg= 2 tab, Oral, Daily methadone, 20 mg= 2 tab, Oral, Daily methocarbamol, 750 mg= 1 tab, Oral, TID Mylanta Maximum Strength, 30 mL, Oral, every 6 hr, PRN nicotine 2 mg oral transmucosal gum, 2 mg= 1 EA, Chewed, every 1 hr, PRN nicotine 21 mg/24 hr transdermal film, extended release, 21 mg= 1 patches, TD, Daily ondansetron, 8 mg= 2 tab, Oral, every 8 hr, PRN pantoprazole, 40 mg= 1 tab, Oral, BID ProAir HFA 90 mcg/inh inhalation aerosol, 90 mcg= 1 puffs, Oral, every 6 hr, PRN Senna Plus 50 mg-8.6 mg oral tablet, 1 tab, Oral, BID sucralfate, 1 g= 1 tab, Oral, QID(ACHS) traZODone, 50 mg= 1 tab, Oral, Bedtime Home Albuterol (Eqv-ProAir HFA) 90 mcg/inh inhalation aerosol, INHALE 2 PUFFS BY MOUTH EVERY 4 TO 6 HOURS NEEDED FOR WHEEZING OR SHORTNESS OF BREATH Arnuity Ellipta 100 mcg inhalation powder, INHALE 1 PUFF BY MOUTH EVERY DAY AT THE SAME TIME RINSE MOUTH AFTER USING buPROPion 150 mg/24 hours (XL) oral tablet, extended release, 150 mg= 1 tab, Oral, every 24 hr clonazePAM 0.5 mg oral tablet, 0.5 mg= 1 tab, Oral, BID,?Not taking: dupliccate order clonazePAM 0.5 mg oral tablet, 0.5 mg= 1 tab, TAKE 1 TABLET BY MOUTH TWICE DAILY cloNIDine 0.2 mg oral tablet, TAKE 1 TABLET BY MOUTH EVERY DAY doxepin 10 mg oral capsule, TAKE 1 CAPSULE BY MOUTH EVERY NIGHT AT BEDTIME haloperidol 5 mg oral tablet, TAKE 1/2 TABLET BY MOUTH ONCE DAILY FOR 3 DAYS THEN IF TOLERATED INCREASE TO 1 TABLET ONCE DAILY hydrOXYzine pamoate 50 mg oral capsule, 50 mg= 1 cap, Oral, QID, PRN lactulose 10 g/15 mL oral syrup, TAKE 15 ML BY MOUTH AT BEDTIME FOR 10 DAYS lamoTRIgine 100 mg oral tablet, TAKE 1 TABLET BY MOUTH AT BEDTIME lurasidone 20 mg oral tablet, 20 mg= 1 tab, Oral, Daily methadone, 100 mg, Daily methadone, 40 mg, every evening methocarbamol 750 mg oral tablet, TAKE 1 TABLET BY MOUTH THREE TIMES A DAY,?Not taking metoclopramide 10 mg oral tablet, TAKE 1 TABLET BY MOUTH EVERY 6 HOURS NEEDED FOR NAUSEA FOR UP TO 7 DAYS nicotine 21 mg/24 hr transdermal film, extended release, APPLY 1 PATCH TOPICALLY TO THE SKIN IN THEMORNING DO NOT SMOKE WHILE USING PATCH ondansetron 4 mg oral tablet, disintegrating, 4 mg= 1 tab, Oral, Once, PRN pantoprazole 40 mg oral delayed release tablet, 40 mg= 1 tab, Oral, BID prochlorperazine 5 mg oral tablet, 5 mg= 1 tab, Oral, TID, PRN sucralfate 1 g oral tablet, 1 g= 1 tab, Oral, QID traZODone 150 mg oral tablet, 150 mg= 1 tab, Oral, Bedtime Assessment/Plan Constipation -Cont. Lactulose -Increase water intake -Cont Senna plus.?? Epigastric pain -Cont. Dicyclomine -Monitor for pain Diagnosis Coding Information F31.62?Bipolar disorder, current episode mixed, moderate F11.20?Opioid dependence, uncomplicated K59.00?Constipation, unspecified R10.13?Epigastric pain K29.70?Gastritis, unspecified, without bleeding F17.200?Nicotine dependence, unspecified, uncomplicated E78.1?Pure hyperglyceridemia J45.909?Unspecified asthma, uncomplicated ? Electronically Signed on 11/04/2024 05:10 PM SAUL Richardson, [place] Internal medicine Progress note * Isauro, Nurse Practitioner for [facility]: PERFORM Event Display: Internal Medicine Progress Note Authored Date: [id number] Subjective 10/27:??Patient is a 24 yr old male with significant health conditions including: MDD, Mixed Cluster B Personality D/O, Alcohol Use D/O, Adjustment D/O, TBI causing neurocognitive d/o, occupational/defiant behavior,??presumed gastritis, asthma, opioid use disorder on methadone, PTSD, ADHD, bipolar disorder with psychosis who was admitted to [facility] on 10/26 following [facility] visit for N/V, ABD pain, where pt had SI. Patient is pleasant and cooperative at bedside. Patient denies any other physiological conditions requiring management. Pt??reports anxiety 10/10 and depression 10/10 during examination.??Pt?denies any other??medical concerns at this time. CBC/CMP/EKG pending. ACTUARIAL CONSULTANT will F/U PRN for medical concerns. ?? 10/29/24: Constipation f/u. Patient reports a hard,??difficult bloody BM after??about??a??week of constipation.??He describes red??blood.??He states to feel tenderness at the anal surface. And, he continues having??GI??pain, he??is wearing??the lido??patch on epigastric /??abd. region. ??Will continue monitoring for f/t of hemoccult cards r/o GI bleed. I will add Colace daily and f/u. He is encourage to drink plenty of fluid and increase his physical activity / ambulate. Remaining ROS/ PE negative.? 10/30: ??ACTUARIAL CONSULTANT F/Ued with??pt. Pt reports /10 epigastric pain, is due for pain medication (Methocarbamol). Pt??reports his last??BM was on 10/27 when he??received Biscodyl??supp PRN. Pt reports stools are hard' and that he is bleeding with passing stools.??Pt also reports pain in??rectum r/t hard stool s. Pt switched??to??Lactulose??BID from Miralax??to help??with??BMs. Remainder??of ROS/PE negative for any acute medical concerns.??No overnight medical??events reported. Patient participating with therapy and cares. Clinical??flowsheet reviewed. VSS. BP at goal. Patient denies nausea, vomiting, diarrhea, headaches, fever, chills, chest pain, palpitations, dizziness, dyspnea, cough,??wheezing. Will continue to monitor closely ?? 11/01: ??ACTUARIAL CONSULTANT F/Ued with??pt. Pt declined to me with ACTUARIAL CONSULTANT, declined??ROS/PE. No overnight medical??eventsreported. Patient participating with therapy and cares. Clinical??flowsheet reviewed. VSS. BP reviewed. Will continue to monitor closely ?? 11/03: ??ACTUARIAL CONSULTANT F/Ued with??pt. Pt reports he has??been??having BMs,??one yesterday, one this AM. Denies any blood in the stool. Pt reports stomach pain is 8/10, reports it improves with medications (10/05). Pt only taking scheduled, not PRNs; recommended trying Tylenol PRN for further management. Pt eating, denies any n/v. Remainder of?ROS??negative for any acute medical concerns. Pt declined PE with ACTUARIAL CONSULTANT today.??No overnight medical??events reported. Patient participating with therapy and cares. Clinical??flowsheet reviewed. VSS. BP reviewed. Patient denies nausea, vomiting, diarrhea, constipation, headaches, fever, chills, chest pain, palpitations, dizziness, dyspnea, cough,??wheezing. Will continue to monitor closely. ?? 11/04/2024 Pt seen in his room to f/u on abdominal pain/constipation. He reports he has been having BMs and he??is eating well. Pt reports having had a BM this morning. His abdomen is firm with +BS.??Patient denies nausea, vomiting, diarrhea, constipation, headaches, fever, chills, chest pain, palpitations, dizziness, dyspnea, cough,??wheezing. Will continue to monitor closely. ?? 11/07: ??ACTUARIAL CONSULTANT F/Ued with??pt. Pt reports nausea this??AM??with epigastric pain, 11/05, prior to medication administration. Pt reports difficulty eating r/t nausea & epigastric pain. Tylenol increased, pt has ensures available. Pt reports no issues with BMs at this time. Remainder of??ROS negative for any acute medical concerns. Pt declined PE with this ACTUARIAL CONSULTANT today.??No overnight medical??events reported. Patient participating with therapy and cares. Clinical??flowsheet reviewed. VSS. BP reviewed.Patient denies, vomiting, diarrhea, constipation, headaches, fever, chills, chest pain, palpitations, dizziness, dyspnea, cough,??wheezing. Will continue to monitor closely ?? 11/09: ??ACTUARIAL CONSULTANT F/Ued with??pt. Pt reports nausea??this AM; ACTUARIAL CONSULTANT recommended Zofran PRN. Pt had decreased appetite this AM r/t nausea & epigastric pain (10/05). Pt did drink ensure. Rec continue with GI & pain medications. Pt reports continued BMs.??Remainder of?ROS/PE negative for any acute medical concerns.??No overnight medical??events reported. Patient participating with therapy and cares.Clinical??flowsheet reviewed. VSS. BP at goal. Patient denies vomiting, diarrhea, constipation, headaches, fever, chills, chest pain, palpitations, dizziness, dyspnea, cough,??wheezing. Will continueto monitor closely until d/c later this AM.?? Objective Vitals & Measurements T:??36.1?C (Skin)?? RR:??18?? RR:??18?? BP:??120/73?? SpO2:??97%?? Physical Exam Constitutional: [Alert, well nourished, and no acute distress] Head: [normal cephalic atraumatic] Eye: [EOMI, PERRL] Neck: [No jugular venous distention, no bruits] ENT: [Mucous membranes moist , oropharynx clear] Cardiovascular: [Regular rate and rhythm , normal S1, S2, no murmurs gallops and rubs,no edema??] Respiratory: [No respiratory distress clear to auscultation bilaterally , good air entry bilaterally, no stridor] Gastrointestinal: Tender to palpation in epigastric??area, non-distended, soft.?? Genitourinary: [not examined] Musculoskeletal: [Distal pulses normal, no injury or deformity] Neurological: [Alert and oriented x 3, strength 5 out of 5 throughout, no focal deficits, sensationintact throughout] Skin: [Warm, dry, no rash] Lymphatic: [No lymphadenopathy??] Medications Inpatient acetaminophen, 975 mg= 3 tab, Oral, every 6 hr Arnuity Ellipta 100 mcg inhalation powder, 100 mcg= 1 inh, Inhale, RT Daily bisacodyl, 10 mg= 1 supp, Rectal, Daily, PRN busPIRone, 10 mg= 1 tab, Oral, BID Depakote, 250 mg= 1 tab, Oral, TID dicyclomine, 20 mg= 2 cap, Oral, every 8 hr, PRN fenofibrate, 48 mg= 1 tab, Oral, Daily Haldol, 5 mg= 1 tab, Oral, BID hydrOXYzine pamoate, 50 mg= 1 cap, Oral, QID, PRN lactulose, 20 g= 30 mL, Oral, BID lidocaine 4% topical film, 1 patches, TD, Daily loperamide, 2 mg= 1 cap, Oral, every 4 hr, PRN melatonin, 6 mg= 2 tab, Oral, Bedtime, PRN methadone, 40 mg= 1 tab, Oral, every evening methadone, 80 mg= 2 tab, Oral, Daily methadone, 20 mg= 2 tab, Oral, Daily methocarbamol, 750 mg= 1 tab, Oral, TID Mylanta Maximum Strength, 30 mL, Oral, every 6 hr, PRN nicotine 2 mg oral transmucosal gum, 2 mg= 1 EA, Chewed, every 1 hr, PRN nicotine 21 mg/24 hr transdermal film, extended release, 21 mg= 1 patches, TD, Daily ondansetron, 8 mg= 2 tab, Oral, every 8 hr, PRN pantoprazole, 40 mg= 1 tab, Oral, BID ProAir HFA 90 mcg/inh inhalation aerosol, 90 mcg= 1 puffs, Oral, every 6 hr, PRN Senna Plus 50 mg-8.6 mg oral tablet, 1 tab, Oral, BID sucralfate, 1 g= 1 tab, Oral, QID(ACHS) traZODone, 50 mg= 1 tab, Oral, Bedtime Home Albuterol (Eqv-ProAir HFA) 90 mcg/inh inhalation aerosol, INHALE 2 PUFFS BY MOUTH EVERY 4 TO 6 HOURS NEEDED FOR WHEEZING OR SHORTNESS OF BREATH Arnuity Ellipta 100 mcg inhalation powder, 100 mcg= 1 inh, Inhale, RT Daily busPIRone 10 mg oral tablet, 10 mg= 1 tab, Oral, BID Depakote 250 mg oral delayed release tablet, 250 mg= 1 tab, Oral, TID fenofibrate 48 mg oral tablet, 48 mg= 1 tab, Oral, Daily haloperidol 5 mg oral tablet, 5, Oral, BID methadone, 80 mg, Oral, Daily methadone, 40 mg, Oral, every evening methadone 10 mg oral tablet, 20 mg= 2 tab, Oral, Daily methocarbamol 750 mg oral tablet, 750 mg= 1 tab, Oral, TID nicotine 21 mg/24 hr transdermal film, extended release, 21 mg= 1 patches, Topical, every 24 hr, APPLY 1 PATCH TOPICALLY TO THE SKIN IN THE MORNING DO NOT SMOKE WHILE USING PATCH pantoprazole 40 mg oral delayed release tablet, 40 mg= 1 tab, Oral, BID Senna Plus 50 mg-8.6 mg oral tablet, 1 tab, Oral, BID sucralfate 1 g oral tablet, 1 g= 1 tab, Oral, QID(ACHS) Assessment/Plan Epigastric pain - Pain improved from 8/10 on 11/07??to 7/10 on 11/09. - Continue with Lidocaine patch,??Methocarbamol TID, Tylenol q6h - Warm compresses, rest.?? - Rec PCP F/U for potential GI referral for further workup/eval Gastritis - Continue with Sucralfate & Pantoprazole per [facility] d/c recs. - Rec PCP F/U for potential GI referral for further workup/eval Nausea - Continue with Zofran PRN - Rec PCP F/U for potential GI referral for further workup/eval Nicotine use disorder IS THE PATIENT MEDICALLY STABLE TO PARTICIPATE IN AN INPATIENT/OUTPATIENT PSYCHIATRIC TREATMENT PROGRAM? ?? YES. Diagnosis Coding Information F31.62?Bipolar disorder, current episode mixed, moderate F11.20?Opioid dependence, uncomplicated K59.00?Constipation, unspecified R10.13?Epigastric pain K29.70?Gastritis, unspecified, without bleeding R11.0?Nausea F17.200?Nicotine dependence, unspecified, uncomplicated E78.1?Pure hyperglyceridemia J45.909?Unspecified asthma, uncomplicated ? Electronically Signed on 11/09/2024 12:16 PM Isauro Nurse Practitioner for [employer] * Isa[facility] Nurse Practitioner for [employer]: PERFORM Event Display: Internal Medicine Progress Note Authored Date: [id number] Subjective 10/27:??Patient is a 24 yr old male with significant health conditions including: MDD, Mixed Cluster B Personality D/O, Alcohol Use D/O, Adjustment D/O, TBI causing neurocognitive d/o, occupational/defiant behavior,??presumed gastritis, asthma, opioid use disorder on methadone, PTSD, ADHD, bipolar disorder with psychosis who was admitted to [facility] on 10/26 following [facility] visit for N/V, ABD pain, where pt had SI. Patient is pleasant and cooperative at bedside. Patient denies any other physiological conditions requiring management. Pt??reports anxiety 10/10 and depression 10/10 during examination.??Pt?denies any other??medical concerns at this time. CBC/CMP/EKG pending. ACTUARIAL CONSULTANT will F/U PRN for medical concerns. ?? 10/29/24: Constipation f/u. Patient reports a hard,??difficult bloody BM after??about??a??week of constipation.??He describes red??blood.??He states to feel tenderness at the anal surface. And, he continues having??GI??pain, he??is wearing??the lido??patch on epigastric /??abd. region. ??Will continue monitoring for f/t of hemoccult cards r/o GI bleed. I will add Colace daily and f/u. He is encourage to drink plenty of fluid and increase his physical activity / ambulate. Remaining ROS/ PE negative.? 10/30: ??ACTUARIAL CONSULTANT F/Ued with??pt. Pt reports 12/06 epigastric pain, is due for pain medication (Methocarbamol). Pt??reports his last??BM was on 10/27 when he??received Biscodyl??supp PRN. Pt reports stools are hard' and that he is bleeding with passing stools.??Pt also reports pain in??rectum r/t hard stool s. Pt switched??to??Lactulose??BID from Miralax??to help??with??BMs. Remainder??of ROS/PE negative for any acute medical concerns.??No overnight medical??events reported. Patient participating with therapy and cares. Clinical??flowsheet reviewed. VSS. BP at goal. Patient denies nausea, vomiting, diarrhea, headaches, fever, chills, chest pain, palpitations, dizziness, dyspnea, cough,??wheezing. Will continue to monitor closely ?? 11/01: ??ACTUARIAL CONSULTANT F/Ued with??pt. Pt declined to me with ACTUARIAL CONSULTANT, declined??ROS/PE. No overnight medical??eventsreported. Patient participating with therapy and cares. Clinical??flowsheet reviewed. VSS. BP reviewed. Will continue to monitor closely ?? 11/03: ??ACTUARIAL CONSULTANT F/Ued with??pt. Pt reports he has??been??having BMs,??one yesterday, one this AM. Denies any blood in the stool. Pt reports stomach pain is /10, reports it improves with medications (10/05). Pt only taking scheduled, not PRNs; recommended trying Tylenol PRN for further management. Pt eating, denies any n/v. Remainder of?ROS??negative for any acute medical concerns. Pt declined PE with ACTUARIAL CONSULTANT today.??No overnight medical??events reported. Patient participating with therapy and cares. Clinical??flowsheet reviewed. VSS. BP reviewed. Patient denies nausea, vomiting, diarrhea, constipation, headaches, fever, chills, chest pain, palpitations, dizziness, dyspnea, cough,??wheezing. Will continue to monitor closely. ?? 11/04/2024 Pt seen in his room to f/u on abdominal pain/constipation. He reports he has been having BMs and he??is eating well. Pt reports having had a BM this morning. His abdomen is firm with +BS.??Patient denies nausea, vomiting, diarrhea, constipation, headaches, fever, chills, chest pain, palpitations, dizziness, dyspnea, cough,??wheezing. Will continue to monitor closely. ?? 11/07: ??ACTUARIAL CONSULTANT F/Ued with??pt. Pt reports nausea this??AM??with epigastric pain, 11/05, prior to medication administration. Pt reports difficulty eating r/t nausea & epigastric pain. Tylenol increased, pt has ensures available. Pt reports no issues with BMs at this time. Remainder of??ROS negative for any acute medical concerns. Pt declined PE with this ACTUARIAL CONSULTANT today.??No overnight medical??events reported. Patient participating with therapy and cares. Clinical??flowsheet reviewed. VSS. BP reviewed.Patient denies, vomiting, diarrhea, constipation, headaches, fever, chills, chest pain, palpitations, dizziness, dyspnea, cough,??wheezing. Will continue to monitor closely Objective Vitals & Measurements RR:??17?? RR:??17?? BP:??108/61(Sitting)?? SpO2:??97%?? Physical Exam Constitutional: Pt alert, laying in bed. Head: [normal cephalic atraumatic] Eye: [EOMI, PERRL] Neck:??Unable to examine ENT: [Mucous membranes moist , oropharynx clear] Cardiovascular:??No visible swelling.??Declined to let ACTUARIAL CONSULTANT listen to heart and check for swelling inBLE.?? Respiratory: No respiratory distress, speaking clearly/in full sentences, no audible wheezing. Declined to let ACTUARIAL CONSULTANT listen to lungs.?? Genitourinary: [not examined] Musculoskeletal: Walking later in the day, even muscle tone observed, no signs of listing or other gait??abnormalities. Neurological: Alert, oriented, no signs of imbalance or tremors. Skin: No??visible rashes or lesions Medications Inpatient acetaminophen, 975 mg= 3 tab, Oral, every 6 hr Arnuity Ellipta 100 mcg inhalation powder, 100 mcg= 1 inh, Inhale, RT Daily bisacodyl, 10 mg= 1 supp, Rectal, Daily, PRN busPIRone, 10 mg= 1 tab, Oral, BID Depakote, 250 mg= 1 tab, Oral, TID dicyclomine, 20 mg= 2 cap, Oral, every 8 hr, PRN fenofibrate, 48 mg= 1 tab, Oral, Daily Haldol, 5 mg= 1 tab, Oral, BID hydrOXYzine pamoate, 50 mg= 1 cap, Oral, QID, PRN lactulose, 20 g= 30 mL, Oral, BID lidocaine 4% topical film, 1 patches, TD, Daily loperamide, 2 mg= 1 cap, Oral, every 4 hr, PRN melatonin, 6 mg= 2 tab, Oral, Bedtime, PRN methadone, 40 mg= 1 tab, Oral, every evening methadone, 80 mg= 2 tab, Oral, Daily methadone, 20 mg= 2 tab, Oral, Daily methocarbamol, 750 mg= 1 tab, Oral, TID Mylanta Maximum Strength, 30 mL, Oral, every 6 hr, PRN nicotine 2 mg oral transmucosal gum, 2 mg= 1 EA, Chewed, every 1 hr, PRN nicotine 21 mg/24 hr transdermal film, extended release, 21 mg= 1 patches, TD, Daily ondansetron, 8 mg= 2 tab, Oral, every 8 hr, PRN pantoprazole, 40 mg= 1 tab, Oral, BID ProAir HFA 90 mcg/inh inhalation aerosol, 90 mcg= 1 puffs, Oral, every 6 hr, PRN Senna Plus 50 mg-8.6 mg oral tablet, 1 tab, Oral, BID sucralfate, 1 g= 1 tab, Oral, QID(ACHS) traZODone, 50 mg= 1 tab, Oral, Bedtime Home Albuterol (Eqv-ProAir HFA) 90 mcg/inh inhalation aerosol, INHALE 2 PUFFS BY MOUTH EVERY 4 TO 6 HOURS NEEDED FOR WHEEZING OR SHORTNESS OF BREATH Arnuity Ellipta 100 mcg inhalation powder, INHALE 1 PUFF BY MOUTH EVERY DAY AT THE SAME TIME RINSE MOUTH AFTER USING buPROPion 150 mg/24 hours (XL) oral tablet, extended release, 150 mg= 1 tab, Oral, every 24 hr clonazePAM 0.5 mg oral tablet, 0.5 mg= 1 tab, Oral, BID,?Not taking: dupliccate order clonazePAM 0.5 mg oral tablet, 0.5 mg= 1 tab, TAKE 1 TABLET BY MOUTH TWICE DAILY cloNIDine 0.2 mg oral tablet, TAKE 1 TABLET BY MOUTH EVERY DAY doxepin 10 mg oral capsule, TAKE 1 CAPSULE BY MOUTH EVERY NIGHT AT BEDTIME haloperidol 5 mg oral tablet, TAKE 1/2 TABLET BY MOUTH ONCE DAILY FOR 3 DAYS THEN IF TOLERATED INCREASE TO 1 TABLET ONCE DAILY hydrOXYzine pamoate 50 mg oral capsule, 50 mg= 1 cap, Oral, QID, PRN lactulose 10 g/15 mL oral syrup, TAKE 15 ML BY MOUTH AT BEDTIME FOR 10 DAYS lamoTRIgine 100 mg oral tablet, TAKE 1 TABLET BY MOUTH AT BEDTIME lurasidone 20 mg oral tablet, 20 mg= 1 tab, Oral, Daily methadone, 100 mg, Daily methadone, 40 mg, every evening methocarbamol 750 mg oral tablet, TAKE 1 TABLET BY MOUTH THREE TIMES A DAY,?Not taking metoclopramide 10 mg oral tablet, TAKE 1 TABLET BY MOUTH EVERY 6 HOURS NEEDED FOR NAUSEA FOR UP TO 7 DAYS nicotine 21 mg/24 hr transdermal film, extended release, APPLY 1 PATCH TOPICALLY TO THE SKIN IN THEMORNING DO NOT SMOKE WHILE USING PATCH ondansetron 4 mg oral tablet, disintegrating, 4 mg= 1 tab, Oral, Once, PRN pantoprazole 40 mg oral delayed release tablet, 40 mg= 1 tab, Oral, BID prochlorperazine 5 mg oral tablet, 5 mg= 1 tab, Oral, TID, PRN sucralfate 1 g oral tablet, 1 g= 1 tab, Oral, QID traZODone 150 mg oral tablet, 150 mg= 1 tab, Oral, Bedtime Assessment/Plan Epigastric pain - Increased Tylenol to 975mg; per??MAR Summary, pt??has not??been utilizing.??Switched to scheduled.?? -?? Continue with Lidocaine patch,??Methocarbamol TID - Warm compresses, rest.?? - Will continue to monitor/adjust/add to therapy PRN. Ordered: acetaminophen, pain-mild (1 to 3 pain scale) 975 mg = 3 tab, Oral, Tab, every 6 hr, First Dose: 11/07/24 12:00:00 EDT, 11/07/24 11:46:00 EDT ?? Nausea - Zofran PRN - Continue with ensures - Will continue to monitor/adjust/add to therapy PRN. ?? IS THE PATIENT MEDICALLY STABLE TO PARTICIPATE IN AN INPATIENT/OUTPATIENT PSYCHIATRIC TREATMENT PROGRAM? ?? YES.? Diagnosis Coding Information F31.62?Bipolar disorder, current episode mixed, moderate F11.20?Opioid dependence, uncomplicated K59.00?Constipation, unspecified R10.13?Epigastric pain K29.70?Gastritis, unspecified, without bleeding R11.0?Nausea F17.200?Nicotine dependence, unspecified, uncomplicated E78.1?Pure hyperglyceridemia J45.909?Unspecified asthma, uncomplicated ? Electronically Signed on 11/07/2024 11:48 AM Isauro Nurse Practitioner for [employer] * Isauro Nurse Practitioner for [employer]: PERFORM Event Display: Internal Medicine Progress Note Authored Date: [id number] Subjective 10/27:??Patient is a 24 yr old male with significant health conditions including: MDD, Mixed Cluster B Personality D/O, Alcohol Use D/O, Adjustment D/O, TBI causing neurocognitive d/o, occupational/defiant behavior,??presumed gastritis, asthma, opioid use disorder on methadone, PTSD, ADHD, bipolar disorder with psychosis who was admitted to [facility] on 10/26 following [facility] visit for N/V, ABD pain, where pt had SI. Patient is pleasant and cooperative at bedside. Patient denies any other physiological conditions requiring management. Pt??reports anxiety 10/10 and depression 10/10 during examination.??Pt?denies any other??medical concerns at this time. CBC/CMP/EKG pending. ACTUARIAL CONSULTANT will F/U PRN for medical concerns. ?? 10/29/24: Constipation f/u. Patient reports a hard,??difficult bloody BM after??about??a??week of constipation.??He describes red??blood.??He states to feel tenderness at the anal surface. And, he continues having??GI??pain, he??is wearing??the lido??patch on epigastric /??abd. region. ??Will continue monitoring for f/t of hemoccult cards r/o GI bleed. I will add Colace daily and f/u. He is encourage to drink plenty of fluid and increase his physical activity / ambulate. Remaining ROS/ PE negative.? 10/30: ??ACTUARIAL CONSULTANT F/Ued with??pt. Pt reports 9/10 epigastric pain, is due for pain medication (Methocarbamol). Pt??reports his last??BM was on 10/27 when he??received Biscodyl??supp PRN. Pt reports stools are hard' and that he is bleeding with passing stools.??Pt also reports pain in??rectum r/t hard stool s. Pt switched??to??Lactulose??BID from Miralax??to help??with??BMs. Remainder??of ROS/PE negative for any acute medical concerns.??No overnight medical??events reported. Patient participating with therapy and cares. Clinical??flowsheet reviewed. VSS. BP at goal. Patient denies nausea, vomiting, diarrhea, headaches, fever, chills, chest pain, palpitations, dizziness, dyspnea, cough,??wheezing. Will continue to monitor closely ?? 11/01: ??ACTUARIAL CONSULTANT F/Ued with??pt. Pt declined to me with ACTUARIAL CONSULTANT, declined??ROS/PE. No overnight medical??eventsreported. Patient participating with therapy and cares. Clinical??flowsheet reviewed. VSS. BP reviewed. Will continue to monitor closely ?? 11/03: ??ACTUARIAL CONSULTANT F/Ued with??pt. Pt reports he has??been??having BMs,??one yesterday, one this AM. Denies any blood in the stool. Pt reports stomach pain is 11/05, reports it improves with medications (10/05). Pt only taking scheduled, not PRNs; recommended trying Tylenol PRN for further management. Pt eating, denies any n/v. Remainder of?ROS??negative for any acute medical concerns. Pt declined PE with ACTUARIAL CONSULTANT today.??No overnight medical??events reported. Patient participating with therapy and cares. Clinical??flowsheet reviewed. VSS. BP reviewed. Patient denies nausea, vomiting, diarrhea, constipation, headaches, fever, chills, chest pain, palpitations, dizziness, dyspnea, cough,??wheezing. Will continue to monitor closely Objective Vitals & Measurements T:??36.1?C (Skin)?? RR:??16?? BP:??131/87?? SpO2:??98%?? Physical Exam Constitutional: Pt alert, laying in bed. Head: [normal cephalic atraumatic] Eye: [EOMI, PERRL] Neck:??Unable to examine ENT: [Mucous membranes moist , oropharynx clear] Cardiovascular:??No visible swelling.??Declined to let ACTUARIAL CONSULTANT listen to heart and check for swelling inBLE.?? Respiratory: No respiratory distress, speaking clearly/in full sentences, no audible wheezing. Declined to let ACTUARIAL CONSULTANT listen to lungs.?? Genitourinary: [not examined] Musculoskeletal: Walking later in the day, even muscle tone observed, no signs of listing or other gait??abnormalities. Neurological: Alert, oriented, no signs of imbalance or tremors. Skin: No??visible rashes or lesions Medications Inpatient acetaminophen, 650 mg= 2 tab, Oral, every 6 hr, PRN Arnuity Ellipta 100 mcg inhalation powder, 100 mcg= 1 inh, Inhale, RT Daily Ativan, 0.5 mg= 1 tab, Oral, BID, PRN bisacodyl, 10 mg= 1 supp, Rectal, Daily, PRN busPIRone, 10 mg= 1 tab, Oral, BID Depakote, 250 mg= 1 tab, Oral, TID dicyclomine, 20 mg= 2 cap, Oral, every 8 hr, PRN fenofibrate, 48 mg= 1 tab, Oral, Daily Haldol, 5 mg= 1 tab, Oral, BID hydrOXYzine pamoate, 50 mg= 1 cap, Oral, QID, PRN lactulose, 20 g= 30 mL, Oral, BID lidocaine 4% topical film, 1 patches, TD, Daily loperamide, 2 mg= 1 cap, Oral, every 4 hr, PRN melatonin, 6 mg= 2 tab, Oral, Bedtime, PRN methadone, 40 mg= 1 tab, Oral, every evening methadone, 80 mg= 2 tab, Oral, Daily methadone, 20 mg= 2 tab, Oral, Daily methocarbamol, 750 mg= 1 tab, Oral, TID Mylanta Maximum Strength, 30 mL, Oral, every 6 hr, PRN nicotine 2 mg oral transmucosal gum, 2 mg= 1 EA, Chewed, every 1 hr, PRN nicotine 21 mg/24 hr transdermal film, extended release, 21 mg= 1 patches, TD, Daily ondansetron, 8 mg= 2 tab, Oral, every 8 hr, PRN pantoprazole, 40 mg= 1 tab, Oral, BID ProAir HFA 90 mcg/inh inhalation aerosol, 90 mcg= 1 puffs, Oral, every 6 hr, PRN Senna Plus 50 mg-8.6 mg oral tablet, 1 tab, Oral, BID sucralfate, 1 g= 1 tab, Oral, QID(ACHS) traZODone, 50 mg= 1 tab, Oral, Bedtime Home Albuterol (Eqv-ProAir HFA) 90 mcg/inh inhalation aerosol, INHALE 2 PUFFS BY MOUTH EVERY 4 TO 6 HOURS NEEDED FOR WHEEZING OR SHORTNESS OF BREATH Arnuity Ellipta 100 mcg inhalation powder, INHALE 1 PUFF BY MOUTH EVERY DAY AT THE SAME TIME RINSE MOUTH AFTER USING buPROPion 150 mg/24 hours (XL) oral tablet, extended release, 150 mg= 1 tab, Oral, every 24 hr clonazePAM 0.5 mg oral tablet, 0.5 mg= 1 tab, Oral, BID,?Not taking: dupliccate order clonazePAM 0.5 mg oral tablet, 0.5 mg= 1 tab, TAKE 1 TABLET BY MOUTH TWICE DAILY cloNIDine 0.2 mg oral tablet, TAKE 1 TABLET BY MOUTH EVERY DAY doxepin 10 mg oral capsule, TAKE 1 CAPSULE BY MOUTH EVERY NIGHT AT BEDTIME haloperidol 5 mg oral tablet, TAKE 1/2 TABLET BY MOUTH ONCE DAILY FOR 3 DAYS THEN IF TOLERATED INCREASE TO 1 TABLET ONCE DAILY hydrOXYzine pamoate 50 mg oral capsule, 50 mg= 1 cap, Oral, QID, PRN lactulose 10 g/15 mL oral syrup, TAKE 15 ML BY MOUTH AT BEDTIME FOR 10 DAYS lamoTRIgine 100 mg oral tablet, TAKE 1 TABLET BY MOUTH AT BEDTIME lurasidone 20 mg oral tablet, 20 mg= 1 tab, Oral, Daily methadone, 100 mg, Daily methadone, 40 mg, every evening methocarbamol 750 mg oral tablet, TAKE 1 TABLET BY MOUTH THREE TIMES A DAY,?Not taking metoclopramide 10 mg oral tablet, TAKE 1 TABLET BY MOUTH EVERY 6 HOURS NEEDED FOR NAUSEA FOR UP TO 7 DAYS nicotine 21 mg/24 hr transdermal film, extended release, APPLY 1 PATCH TOPICALLY TO THE SKIN IN THEMORNING DO NOT SMOKE WHILE USING PATCH ondansetron 4 mg oral tablet, disintegrating, 4 mg= 1 tab, Oral, Once, PRN pantoprazole 40 mg oral delayed release tablet, 40 mg= 1 tab, Oral, BID prochlorperazine 5 mg oral tablet, 5 mg= 1 tab, Oral, TID, PRN sucralfate 1 g oral tablet, 1 g= 1 tab, Oral, QID traZODone 150 mg oral tablet, 150 mg= 1 tab, Oral, Bedtime Assessment/Plan Epigastric pain - Lidocaine patch,??Methocarbamol TID - Discussed utilizing??Tylenol PRN, warm compresses, rest.?? - Will continue to monitor/adjust/add to therapy PRN IS THE PATIENT MEDICALLY STABLE TO PARTICIPATE IN AN INPATIENT/OUTPATIENT PSYCHIATRIC TREATMENT PROGRAM? ?? PT HEMODYNAMICALLY STABLE, PERSISTENT NON-COMPLIANCE TO CARE AND REFUSAL FOR INTERNAL MEDICINE TO PERFORM FULL??EXAM. WILL CONTINUE TO MONITOR Diagnosis Coding Information F31.62?Bipolar disorder, current episode mixed, moderate F11.20?Opioid dependence, uncomplicated K59.00?Constipation, unspecified R10.13?Epigastric pain K29.70?Gastritis, unspecified, without bleeding F17.200?Nicotine dependence, unspecified, uncomplicated E78.1?Pure hyperglyceridemia J45.909?Unspecified asthma, uncomplicated ? Electronically Signed on 11/03/2024 01:00 PM Isauro, Nurse Practitioner for [facility], [place] Nurse Progress note * WU Holt, Sita: PERFORM Event Display: Nursing Narrative Note Authored Date: [id number] Assumed patient care at 1930. Pt alert and oriented, pleasant, cooperative, appears anxious. Pt denied pain, anxiety, depression, SI, HI, AVH. Able to contract for safety.??Pt makes needs known appropriately. Pt is med compliant, utilized PRN Hydroxyzine and Melatonin with fair effect. No medication side effects reported/observed. Pt remains on Q15 min checks for unit safety. No distress or unsafe behaviors observed this shift. Slept for approx. 10 hours. Electronically Signed on 11/09/2024 06:48 AM WU Holt, Sita * WU Lewis, Nori: MODIFY, PERFORM, MODIFY Event Display: Nursing Narrative Note Authored Date: [id number] At 0730, I assessed Minh , who appeared depressed, anxious but calm and cooperative. The patient is adherent to medications,??with no side effects.??No signs of acute distress or suicidal ideation were noted. The patient was cooperative and displayed flat affect. I provided education on?? medication, the importance of getting up and out of bed, which the patient acknowledged. The patient is stable, with no immediate safety concerns.Safety was maintained throughout this shift will continue to monitor [id number]. Electronically Signed on 11/08/2024 05:54 PM WU Lewis Denise * WU Hurt, Arturo: PERFORM Event Display: Nursing Narrative Note Authored Date: [id number] Minh ??is alert and??oriented.??Pt Presents with??broad affect, Calm and cooperative. Visible in the milieu, social with others. VSS, Patient denies any pain during the shift..Patient is med & meal compliant.?? Patient??reports sleeping well at night.. ??Patient denies SI/HI/AVH with no s/sof apparent delusions.??Patient reported Anxiety 0, Depression 0.??Patient?did sleep throughout the night??without any issues. ??Patient?remains on Q15 min checks for safety Electronically Signed on 11/08/2024 06:30 AM WU Hurt Christopher Progress note * SAUL Baca, Alley: PERFORM Event Display: Progress Note Generic Authored Date: [id number] Chief Complaint My racing thoughts are still really bad Subjective Patient is a 24 year-old male with past medical history significant for presumed gastritis, opioid use disorder on methadone, bipolar disorder, PTSD, ADHD who presented to the hospital reporting 6 days of upper abdominal pain with associated nausea vomiting. Patient??reports history of Bipolar disorder with psychosis and reports recently?? he has been experiencing worsening mood with suicidal ideation. ?? Patient was observed pacing in the hallway. He presented as anxious, shaky and restless. He reports that his racing thoughts are still really bad and have not improved since starting medications.?? Reviewed with??patient the onset of medication efficacy. Patient describes feeling anxious, which is visibly apparent during the encounter. Minh mentions having suicidal thoughts but denies any specific plan. Patient states that his racing thoughts are telling him to kill himself. Minh reports has been experiencing difficulty sleeping and reports that he did not sleep well last night. He denies auditory or visual hallucinations.??Minh reports that hydroxyzine, which he has been prescribed for anxiety, is not effective. He also mentions BuSpar is not helpful. Minh's appetite is reported as fine. Patient expresses interest in PHP postdischarge. Objective Vitals & Measurements T:??36.1?C (Skin)?? HR:??94(Pulse)?? RR:??17?? RR:??17?? BP:??117/60?? BP:??130/77(Sitting)?? BP:??122/69(Supine)?? SpO2:??97%?? HT:??170??cm?? HT:??5.651156??ft?? WT:??82.5??kg?? WT:??82.5??kg?? BMI:??28.55?? Mental Status Exam Orientation:??alert and oriented to person, place, time, situation and location ?? Appearance:??stated age, well kept, good eye contact, no acute distress Attitude:??cooperative??requiring re-assuring. Behavior/Motor Activity:??anxious, impulsive, but cooperative Speech:??normal rate/rhythm/volume Attention/Concentration:??grossly intact Mood: anxious Affect:??congruent Thought Content:??racing thoughts Thought Process/Associations:??logical and goal oriented.? Suicidal Thoughts or any SIBs:??endorses suicidal ideations but no plan Homicidal Thoughts:??Denies any??homicidal??ideations, intent, attempt, or any plans or any means Judgement:??fair?? Insight:??fair?? Assessment/Plan 1.??Bipolar affective disorder, mixed, moderate Initiate Ativan 0.5 mg BID PRN for acute anxiety for 3 days Continue Depakote, Trazodone check VPA levels on 11/03/24 Educate patient regarding medication adherence and onset of action ISRRAEL- hydroxyzine, BuSpar, Smoking cessation -nicotine patch Substance Abuse D/O- methadone, F/u outpatient counseling Asthma- inhalers. medical team following? Prn's are readily available for behavioral changes such as anxiety, agitation and insomnia. Pt will maintain safety on the therapeutic milieu. Q15 min checks, and medication monitoring Meds will be adjusted if behavioral issues become of concern 2.??Opioid dependence on agonist therapy Asthma Constipation Epigastric pain Gastritis High triglycerides Nicotine use disorder Diagnosis Coding Information F31.62?Bipolar disorder, current episode mixed, moderate F11.20?Opioid dependence, uncomplicated K59.00?Constipation, unspecified R10.13?Epigastric pain K29.70?Gastritis, unspecified, without bleeding F17.200?Nicotine dependence, unspecified, uncomplicated E78.1?Pure hyperglyceridemia J45.909?Unspecified asthma, uncomplicated ? General Treatment Plan No qualifying data available. Ongoing Need for Services No qualifying data available. Clinical Global Impression No qualifying data available. Prognosis No qualifying data available. Anticipated Length of Stay (Discharge Date) No qualifying data available. Barriers to Discharge No qualifying data available. Reason for Continued Stay No qualifying data available. Informed Consent No qualifying data available. Risk Assessment in Inpatient Setting No qualifying data available. Medications Inpatient acetaminophen, 650 mg= 2 tab, Oral, every 6 hr, PRN Arnuity Ellipta 100 mcg inhalation powder, 100 mcg= 1 inh, Inhale, RT Daily Ativan, 0.5 mg= 1 tab, Oral, BID, PRN bisacodyl, 10 mg= 1 supp, Rectal, Daily, PRN busPIRone, 5 mg= 1 tab, Oral, BID Depakote, 250 mg= 1 tab, Oral, TID dicyclomine, 20 mg= 2 cap, Oral, every 8 hr, PRN fenofibrate, 48 mg= 1 tab, Oral, Daily Haldol, 5 mg= 1 tab, Oral, BID hydrOXYzine pamoate, 50 mg= 1 cap, Oral, QID, PRN lactulose, 20 g= 30 mL, Oral, BID lidocaine 4% topical film, 1 patches, TD, Daily loperamide, 2 mg= 1 cap, Oral, every 4 hr, PRN melatonin, 6 mg= 2 tab, Oral, Bedtime, PRN methadone, 40 mg= 1 tab, Oral, every evening methadone, 80 mg= 2 tab, Oral, Daily methadone, 20 mg= 2 tab, Oral, Daily methocarbamol, 750 mg= 1 tab, Oral, TID Mylanta Maximum Strength, 30 mL, Oral, every 6 hr, PRN nicotine 2 mg oral transmucosal gum, 2 mg= 1 EA, Chewed, every 1 hr, PRN nicotine 21 mg/24 hr transdermal film, extended release, 21 mg= 1 patches, TD, Daily ondansetron, 8 mg= 2 tab, Oral, every 8 hr, PRN pantoprazole, 40 mg= 1 tab, Oral, BID ProAir HFA 90 mcg/inh inhalation aerosol, 90 mcg= 1 puffs, Oral, every 6 hr, PRN Senna Plus 50 mg-8.6 mg oral tablet, 1 tab, Oral, BID sucralfate, 1 g= 1 tab, Oral, QID(ACHS) traZODone, 50 mg= 1 tab, Oral, Bedtime Home Albuterol (Eqv-ProAir HFA) 90 mcg/inh inhalation aerosol, INHALE 2 PUFFS BY MOUTH EVERY 4 TO 6 HOURS NEEDED FOR WHEEZING OR SHORTNESS OF BREATH Arnuity Ellipta 100 mcg inhalation powder, INHALE 1 PUFF BY MOUTH EVERY DAY AT THE SAME TIME RINSE MOUTH AFTER USING buPROPion 150 mg/24 hours (XL) oral tablet, extended release, 150 mg= 1 tab, Oral, every 24 hr clonazePAM 0.5 mg oral tablet, 0.5 mg= 1 tab, Oral, BID,?Not taking: dupliccate order clonazePAM 0.5 mg oral tablet, 0.5 mg= 1 tab, TAKE 1 TABLET BY MOUTH TWICE DAILY cloNIDine 0.2 mg oral tablet, TAKE 1 TABLET BY MOUTH EVERY DAY doxepin 10 mg oral capsule, TAKE 1 CAPSULE BY MOUTH EVERY NIGHT AT BEDTIME haloperidol 5 mg oral tablet, TAKE 1/2 TABLET BY MOUTH ONCE DAILY FOR 3 DAYS THEN IF TOLERATED INCREASE TO 1 TABLET ONCE DAILY hydrOXYzine pamoate 50 mg oral capsule, 50 mg= 1 cap, Oral, QID, PRN lactulose 10 g/15 mL oral syrup, TAKE 15 ML BY MOUTH AT BEDTIME FOR 10 DAYS lamoTRIgine 100 mg oral tablet, TAKE 1 TABLET BY MOUTH AT BEDTIME lurasidone 20 mg oral tablet, 20 mg= 1 tab, Oral, Daily methadone, 100 mg, Daily methadone, 40 mg, every evening methocarbamol 750 mg oral tablet, TAKE 1 TABLET BY MOUTH THREE TIMES A DAY,?Not taking metoclopramide 10 mg oral tablet, TAKE 1 TABLET BY MOUTH EVERY 6 HOURS NEEDED FOR NAUSEA FOR UP TO 7 DAYS nicotine 21 mg/24 hr transdermal film, extended release, APPLY 1 PATCH TOPICALLY TO THE SKIN IN THEMORNING DO NOT SMOKE WHILE USING PATCH ondansetron 4 mg oral tablet, disintegrating, 4 mg= 1 tab, Oral, Once, PRN pantoprazole 40 mg oral delayed release tablet, 40 mg= 1 tab, Oral, BID prochlorperazine 5 mg oral tablet, 5 mg= 1 tab, Oral, TID, PRN sucralfate 1 g oral tablet, 1 g= 1 tab, Oral, QID traZODone 150 mg oral tablet, 150 mg= 1 tab, Oral, Bedtime Allergies No Known Medication Allergies Lab Results No Qualifying Results Electronically Signed on 11/02/2024 02:43 PM SAUL Baca, Alley * SAUL Baca, Alley: PERFORM Event Display: Progress Note Generic Authored Date: [id number] Subjective Patient is a 24 year-old male with past medical history significant for presumed gastritis, opioid use disorder on methadone, bipolar disorder, PTSD, ADHD who presented to the hospital reporting 6 days of upper abdominal pain with associated nausea vomiting. Patient??reports history of Bipolar disorder with psychosis and reports recently?? he has been experiencing worsening mood with suicidal ideation. ?? Patient is observed pacing in the hallway. Minh reports severe depression, rating it as 9/10. Minh describes the racing thoughts as constant, stating they keep going, keeps going, keeps going. He reports that sometimes these racing thoughts tell him to kill himself, though he is unsure if he has any intention to act on them. Minh also reports experiencing really bad anxiety and significant depression. He states that he is depressed about everything in my life, though he does not provide specific details about stressors or contributing factors. Patient reports having suicidal ideations but denies having a specific plan. He expresses feeling tired and not wanting to keep living like this. Minh mentions bipolar disorder, rating it as 9/10 in severity. The presence of racing thoughts and sleep disturbances could be indicative of a manic or hypomanic episode. Patient remains compliant with medications. Patient was started on Haldol 5 mg at bedtime, will increase dosage to 5 mg BID. Check VPA levels on 11/03/2024. Objective Vitals & Measurements T:??36.1?C (Skin)?? HR:??89(Monitored)?? RR:??18?? RR:??18?? BP:??117/60?? BP:??121/79(Sitting)?? BP:??122/69(Supine)?? SpO2:??97%?? HT:??170??cm?? HT:??5.192861??ft?? WT:??82.5??kg?? WT:??82.5??kg?? BMI:??28.55?? Mental Status Exam Orientation:??alert and oriented to person, place, time, situation and location ?? Appearance:??stated age, well kept, good eye contact, no acute distress Attitude:??cooperative??requiring re-assuring. Behavior/Motor Activity:??anxious, impulsive, but cooperative Speech:??normal rate/rhythm/volume Attention/Concentration:??grossly intact Mood: depressed Affect:??flat Thought Content:??racing thoughts, disorganized Thought Process/Associations:??logical and goal oriented.? Suicidal Thoughts or any SIBs:??endorses suicidal ideations but no plan Homicidal Thoughts:??Denies any??homicidal??ideations, intent, attempt, or any plans or any means Judgement:??fair?? Insight:??fair?? Assessment/Plan 1.??Bipolar affective disorder, mixed, moderate Increase Haldol??to??5??mg po daily??BID?? Recently started on Depakote 250mg TID, ( check VPA levels on 11/03/24) Educate patient regarding medication adherence and onset of action ISRRAEL- hydroxyzine, BuSpar Smoking cessation -nicotine patch Substance Abuse D/O- methadone, F/u outpatient counseling Asthma- inhalers. medical team following? Prn's are readily available for behavioral changes such as anxiety, agitation and insomnia. Pt will maintain safety on the therapeutic milieu. Q15 min checks, and medication monitoring Meds will be adjusted if behavioral issues become of concern 2.??Opioid dependence on agonist therapy Asthma Constipation Epigastric pain Gastritis High triglycerides Nicotine use disorder Diagnosis Coding Information F31.62?Bipolar disorder, current episode mixed, moderate F11.20?Opioid dependence, uncomplicated K59.00?Constipation, unspecified R10.13?Epigastric pain K29.70?Gastritis, unspecified, without bleeding F17.200?Nicotine dependence, unspecified, uncomplicated E78.1?Pure hyperglyceridemia J45.909?Unspecified asthma, uncomplicated ? General Treatment Plan No qualifying data available. Ongoing Need for Services No qualifying data available. Clinical Global Impression No qualifying data available. Prognosis No qualifying data available. Anticipated Length of Stay (Discharge Date) No qualifying data available. Barriers to Discharge No qualifying data available. Reason for Continued Stay No qualifying data available. Informed Consent No qualifying data available. Risk Assessment in Inpatient Setting No qualifying data available. Medications Inpatient acetaminophen, 650 mg= 2 tab, Oral, every 6 hr, PRN Arnuity Ellipta 100 mcg inhalation powder, 100 mcg= 1 inh, Inhale, RT Daily bisacodyl, 10 mg= 1 supp, Rectal, Daily, PRN busPIRone, 5 mg= 1 tab, Oral, BID Depakote, 250 mg= 1 tab, Oral, TID dicyclomine, 20 mg= 2 cap, Oral, every 8 hr, PRN fenofibrate, 48 mg= 1 tab, Oral, Daily Haldol, 5 mg= 1 tab, Oral, Bedtime hydrOXYzine pamoate, 50 mg= 1 cap, Oral, QID, PRN lactulose, 20 g= 30 mL, Oral, BID lidocaine 4% topical film, 1 patches, TD, Daily loperamide, 2 mg= 1 cap, Oral, every 4 hr, PRN melatonin, 6 mg= 2 tab, Oral, Bedtime, PRN methadone, 40 mg= 1 tab, Oral, every evening methadone, 80 mg= 2 tab, Oral, Daily methadone, 20 mg= 2 tab, Oral, Daily methocarbamol, 750 mg= 1 tab, Oral, TID Mylanta Maximum Strength, 30 mL, Oral, every 6 hr, PRN nicotine 2 mg oral transmucosal gum, 2 mg= 1 EA, Chewed, every 1 hr, PRN nicotine 21 mg/24 hr transdermal film, extended release, 21 mg= 1 patches, TD, Daily ondansetron, 8 mg= 2 tab, Oral, every 8 hr, PRN pantoprazole, 40 mg= 1 tab, Oral, BID ProAir HFA 90 mcg/inh inhalation aerosol, 90 mcg= 1 puffs, Oral, every 6 hr, PRN Senna Plus 50 mg-8.6 mg oral tablet, 1 tab, Oral, BID sucralfate, 1 g= 1 tab, Oral, QID(ACHS) traZODone, 50 mg= 1 tab, Oral, Bedtime Home Albuterol (Eqv-ProAir HFA) 90 mcg/inh inhalation aerosol, INHALE 2 PUFFS BY MOUTH EVERY 4 TO 6 HOURS NEEDED FOR WHEEZING OR SHORTNESS OF BREATH Arnuity Ellipta 100 mcg inhalation powder, INHALE 1 PUFF BY MOUTH EVERY DAY AT THE SAME TIME RINSE MOUTH AFTER USING buPROPion 150 mg/24 hours (XL) oral tablet, extended release, 150 mg= 1 tab, Oral, every 24 hr clonazePAM 0.5 mg oral tablet, 0.5 mg= 1 tab, Oral, BID,?Not taking: dupliccate order clonazePAM 0.5 mg oral tablet, 0.5 mg= 1 tab, TAKE 1 TABLET BY MOUTH TWICE DAILY cloNIDine 0.2 mg oral tablet, TAKE 1 TABLET BY MOUTH EVERY DAY doxepin 10 mg oral capsule, TAKE 1 CAPSULE BY MOUTH EVERY NIGHT AT BEDTIME haloperidol 5 mg oral tablet, TAKE 1/2 TABLET BY MOUTH ONCE DAILY FOR 3 DAYS THEN IF TOLERATED INCREASE TO 1 TABLET ONCE DAILY hydrOXYzine pamoate 50 mg oral capsule, 50 mg= 1 cap, Oral, QID, PRN lactulose 10 g/15 mL oral syrup, TAKE 15 ML BY MOUTH AT BEDTIME FOR 10 DAYS lamoTRIgine 100 mg oral tablet, TAKE 1 TABLET BY MOUTH AT BEDTIME lurasidone 20 mg oral tablet, 20 mg= 1 tab, Oral, Daily methadone, 100 mg, Daily methadone, 40 mg, every evening methocarbamol 750 mg oral tablet, TAKE 1 TABLET BY MOUTH THREE TIMES A DAY,?Not taking metoclopramide 10 mg oral tablet, TAKE 1 TABLET BY MOUTH EVERY 6 HOURS NEEDED FOR NAUSEA FOR UP TO 7 DAYS nicotine 21 mg/24 hr transdermal film, extended release, APPLY 1 PATCH TOPICALLY TO THE SKIN IN THEMORNING DO NOT SMOKE WHILE USING PATCH ondansetron 4 mg oral tablet, disintegrating, 4 mg= 1 tab, Oral, Once, PRN pantoprazole 40 mg oral delayed release tablet, 40 mg= 1 tab, Oral, BID prochlorperazine 5 mg oral tablet, 5 mg= 1 tab, Oral, TID, PRN sucralfate 1 g oral tablet, 1 g= 1 tab, Oral, QID traZODone 150 mg oral tablet, 150 mg= 1 tab, Oral, Bedtime Allergies No Known Medication Allergies Lab Results No Qualifying Results Electronically Signed on 11/01/2024 04:46 PM SAUL Baca, Alley * Isauro, Nurse Practitioner for [facility], [place]: PERFORM Event Display: Progress Note Generic Authored Date: [id number] Subjective 10/27:??Patient is a 24 yr old male with significant health conditions including: MDD, Mixed Cluster B Personality D/O, Alcohol Use D/O, Adjustment D/O, TBI causing neurocognitive d/o, occupational/defiant behavior,??presumed gastritis, asthma, opioid use disorder on methadone, PTSD, ADHD, bipolar disorder with psychosis who was admitted to [facility] on 10/26 following [facility] visit for N/V, ABD pain, where pt had SI. Patient is pleasant and cooperative at bedside. Patient denies any other physiological conditions requiring management. Pt??reports anxiety 10/10 and depression 10/10 during examination.??Pt?denies any other??medical concerns at this time. CBC/CMP/EKG pending. ACTUARIAL CONSULTANT will F/U PRN for medical concerns. ?? 10/29/24: Constipation f/u. Patient reports a hard,??difficult bloody BM after??about??a??week of constipation.??He describes red??blood.??He states to feel tenderness at the anal surface. And, he continues having??GI??pain, he??is wearing??the lido??patch on epigastric /??abd. region. ??Will continue monitoring for f/t of hemoccult cards r/o GI bleed. I will add Colace daily and f/u. He is encourage to drink plenty of fluid and increase his physical activity / ambulate. Remaining ROS/ PE negative.? 10/30: ??ACTUARIAL CONSULTANT F/Ued with??pt. Pt reports 9/10 epigastric pain, is due for pain medication (Methocarbamol). Pt??reports his last??BM was on 10/27 when he??received Biscodyl??supp PRN. Pt reports stools are hard' and that he is bleeding with passing stools.??Pt also reports pain in??rectum r/t hard stool s. Pt switched??to??Lactulose??BID from Miralax??to help??with??BMs. Remainder??of ROS/PE negative for any acute medical concerns.??No overnight medical??events reported. Patient participating with therapy and cares. Clinical??flowsheet reviewed. VSS. BP at goal. Patient denies nausea, vomiting, diarrhea, headaches, fever, chills, chest pain, palpitations, dizziness, dyspnea, cough,??wheezing. Will continue to monitor closely ?? 11/01: ??ACTUARIAL CONSULTANT F/Ued with??pt. Pt declined to me with ACTUARIAL CONSULTANT, declined??ROS/PE. No overnight medical??eventsreported. Patient participating with therapy and cares. Clinical??flowsheet reviewed. VSS. BP reviewed. Will continue to monitor closely Review of Systems - Pt declined ROS - Objective Vitals & Measurements T:??36.1?C (Skin)?? RR:??18?? RR:??18?? BP:??134/86?? SpO2:??98%?? Physical Exam Constitutional: Pt alert, laying in bed. Head: [normal cephalic atraumatic] Eye: [EOMI, PERRL] Neck:??Unable to examine ENT: [Mucous membranes moist , oropharynx clear] Cardiovascular:??No visible swelling.??Declined to let ACTUARIAL CONSULTANT listen to heart and check for swelling inBLE.?? Respiratory: No respiratory distress, speaking clearly/in full sentences, no audible wheezing. Declined to let ACTUARIAL CONSULTANT listen to lungs.?? Genitourinary: [not examined] Musculoskeletal: Walking later in the day, even muscle tone observed, no signs of listing or other gait??abnormalities. Neurological: Alert, oriented, no signs of imbalance or tremors. Skin: No??visible rashes or lesions Medications Inpatient acetaminophen, 650 mg= 2 tab, Oral, every 6 hr, PRN Arnuity Ellipta 100 mcg inhalation powder, 100 mcg= 1 inh, Inhale, RT Daily bisacodyl, 10 mg= 1 supp, Rectal, Daily, PRN busPIRone, 5 mg= 1 tab, Oral, BID Depakote, 250 mg= 1 tab, Oral, TID dicyclomine, 20 mg= 2 cap, Oral, every 8 hr, PRN fenofibrate, 48 mg= 1 tab, Oral, Daily Haldol, 5 mg= 1 tab, Oral, Bedtime hydrOXYzine pamoate, 50 mg= 1 cap, Oral, QID, PRN lactulose, 20 g= 30 mL, Oral, BID lidocaine 4% topical film, 1 patches, TD, Daily loperamide, 2 mg= 1 cap, Oral, every 4 hr, PRN melatonin, 6 mg= 2 tab, Oral, Bedtime, PRN methadone, 40 mg= 1 tab, Oral, every evening methadone, 80 mg= 2 tab, Oral, Daily methadone, 20 mg= 2 tab, Oral, Daily methocarbamol, 750 mg= 1 tab, Oral, TID Mylanta Maximum Strength, 30 mL, Oral, every 6 hr, PRN nicotine 2 mg oral transmucosal gum, 2 mg= 1 EA, Chewed, every 1 hr, PRN nicotine 21 mg/24 hr transdermal film, extended release, 21 mg= 1 patches, TD, Daily ondansetron, 8 mg= 2 tab, Oral, every 8 hr, PRN pantoprazole, 40 mg= 1 tab, Oral, BID ProAir HFA 90 mcg/inh inhalation aerosol, 90 mcg= 1 puffs, Oral, every 6 hr, PRN Senna Plus 50 mg-8.6 mg oral tablet, 1 tab, Oral, BID sucralfate, 1 g= 1 tab, Oral, QID(ACHS) traZODone, 50 mg= 1 tab, Oral, Bedtime Home Albuterol (Eqv-ProAir HFA) 90 mcg/inh inhalation aerosol, INHALE 2 PUFFS BY MOUTH EVERY 4 TO 6 HOURS NEEDED FOR WHEEZING OR SHORTNESS OF BREATH Arnuity Ellipta 100 mcg inhalation powder, INHALE 1 PUFF BY MOUTH EVERY DAY AT THE SAME TIME RINSE MOUTH AFTER USING buPROPion 150 mg/24 hours (XL) oral tablet, extended release, 150 mg= 1 tab, Oral, every 24 hr clonazePAM 0.5 mg oral tablet, 0.5 mg= 1 tab, Oral, BID,?Not taking: dupliccate order clonazePAM 0.5 mg oral tablet, 0.5 mg= 1 tab, TAKE 1 TABLET BY MOUTH TWICE DAILY cloNIDine 0.2 mg oral tablet, TAKE 1 TABLET BY MOUTH EVERY DAY doxepin 10 mg oral capsule, TAKE 1 CAPSULE BY MOUTH EVERY NIGHT AT BEDTIME haloperidol 5 mg oral tablet, TAKE 1/2 TABLET BY MOUTH ONCE DAILY FOR 3 DAYS THEN IF TOLERATED INCREASE TO 1 TABLET ONCE DAILY hydrOXYzine pamoate 50 mg oral capsule, 50 mg= 1 cap, Oral, QID, PRN lactulose 10 g/15 mL oral syrup, TAKE 15 ML BY MOUTH AT BEDTIME FOR 10 DAYS lamoTRIgine 100 mg oral tablet, TAKE 1 TABLET BY MOUTH AT BEDTIME lurasidone 20 mg oral tablet, 20 mg= 1 tab, Oral, Daily methadone, 100 mg, Daily methadone, 40 mg, every evening methocarbamol 750 mg oral tablet, TAKE 1 TABLET BY MOUTH THREE TIMES A DAY,?Not taking metoclopramide 10 mg oral tablet, TAKE 1 TABLET BY MOUTH EVERY 6 HOURS NEEDED FOR NAUSEA FOR UP TO 7 DAYS nicotine 21 mg/24 hr transdermal film, extended release, APPLY 1 PATCH TOPICALLY TO THE SKIN IN THEMORNING DO NOT SMOKE WHILE USING PATCH ondansetron 4 mg oral tablet, disintegrating, 4 mg= 1 tab, Oral, Once, PRN pantoprazole 40 mg oral delayed release tablet, 40 mg= 1 tab, Oral, BID prochlorperazine 5 mg oral tablet, 5 mg= 1 tab, Oral, TID, PRN sucralfate 1 g oral tablet, 1 g= 1 tab, Oral, QID traZODone 150 mg oral tablet, 150 mg= 1 tab, Oral, Bedtime Assessment/Plan Constipation - Senna Plus BID, Lactulose??BID, Bisacodyl supps??PRN.?? - High fiber diet.?? - Encouraged good PO fluid intake, higher fiber food choices, and ambulation to promote health BMs.?? - Will continue to monitor/adjust/add to therapy PRN. IS THE PATIENT MEDICALLY STABLE TO PARTICIPATE IN AN INPATIENT/OUTPATIENT PSYCHIATRIC TREATMENT PROGRAM? ?? YES. Diagnosis Coding Information F31.62?Bipolar disorder, current episode mixed, moderate F11.20?Opioid dependence, uncomplicated K59.00?Constipation, unspecified R10.13?Epigastric pain K29.70?Gastritis, unspecified, without bleeding F17.200?Nicotine dependence, unspecified, uncomplicated E78.1?Pure hyperglyceridemia J45.909?Unspecified asthma, uncomplicated ? Electronically Signed on 11/01/2024 01:48 PM Isauro, Nurse Practitioner for [facility] Nurse Discharge summary * WU Lewis Denise: PERFORM, MODIFY Event Display: Discharge Note Nursing Authored Date: [id number] The patient was alert and oriented ??4 at the time of discharge. He refused to have his vital signschecked. He denied suicidal ideation (SI), homicidal ideation (HI), anxiety, and depression. All ofthe patient???s belongings were returned and sent with him at the time of discharge. ?? Discharge instructions were provided and signed by the patient. Educational materials regarding thepatient???s diagnoses were also given to him. The patient left the facility in an Uber, en route tohis home. Electronically Signed on 11/09/2024 11:09 AM WU Lewis Denise Patient Care team information Care Team Personnel Name: RICHY Allen Brenda Position: [facility] - Physician Psychiatry Member Role: Primary Care Physician Address: [address] [place] [id number] Telecom: Insurance Providers Guarantor name: [employer] Plan Information #: 1 Payer: [place] Payer Identifier: LORI Member Number: [id number] Group Number: [id number] Subscriber Identifier: [id number] Relationship to Subscriber: self Coverage Type: MEDICAID Coverage Verification Date: LORI Telecom: Address: [facility] [address] [place] [address] Health Plan Information #: 2 Payer: Medicare Payer Identifier: [id number] Member Number: [id number] Group Number: [id number] Subscriber Identifier: [id number] Relationship to Subscriber: self Coverage Type: MEDICARE Coverage Verification Date: LORI Telecom: Address: [address] [place] [address]
[2024-11-11 10:16] VITALS: BP 140/90; PULSE 102
[2024-11-11 10:18] VITALS: BP 137/82; PULSE 108; RESP 18; TEMP 36.8; O2SAT 99; BMI 29.3
--- NOTE | 2024-11-11 10:35 | ED.ABDPAIN ---
HPI - Abdominal Pain General Chief Complaint: Abdominal Pain Stated Complaint: NAUSEA VOMITING Time Seen by Provider: 11/11/24 10:16 Source: patient Mode of arrival: EMS Limitations: no limitations History of Present Illness ED Provider: HPI narrative: 24-year-old male with a history opiate use disorder, on methadone, history of gastritis and duodenitis, non marijuana smoker, multiple [facility] visits and admissions, last admission for dizziness 2 weeks ago presenting to this institution stating that he has epigastric abdominal pain nausea and vomiting as not able to tolerate any oral all liquid medications and he states his diet is great no coffee no cigarettes no alcohol no marijuana use. No fevers or chills. He states that he does not work he lives by himself he is on disability due to history of right ankle injury with complex regional syndrome. Related Data Home Medications ?Medication ?Instructions ?Recorded ?Confirmed methadone 10 mg/5 mL oral solution 100 mg PO DAILY 06/12/24 10/19/24 trazodone 50 mg tablet 50 - 100 mg PO BEDTIME PRN insomnia 06/12/24 10/19/24 clonazepam 0.5 mg tablet mg PO 07/13/24 10/19/24 hydroxyzine pamoate 50 mg capsule 50 mg PO TID 07/13/24 10/19/24 lamotrigine 100 mg tablet 100 mg PO DAILY 07/13/24 10/19/24 trazodone 100 mg tablet 200 mg PO BEDTIME PRN 07/13/24 10/19/24 sucralfate 1 gram tablet 1 g PO ONCE 10/19/24 10/19/24 Previous Rx's ?Medication ?Instructions ?Recorded acetaminophen 325 mg capsule 325 mg PO QID PRN pain #30 caps 09/03/22 (Tylenol) albuterol sulfate 90 mcg/actuation 2 puff inhalation Q4-6H PRN 06/12/24 aerosol inhaler (Ventolin HFA) shortness of breath or wheezing #8.5 grams budesonide 180 mcg/actuation 1 inh inhalation BID #1 ea 06/12/24 breath activated powder inhaler (Pulmicort Flexhaler) fluticasone furoate 27.5 2 spray intranasal DAILY #5.9 mL 06/12/24 mcg/actuation nasal spray,suspension (Flonase Sensimist) fluticasone furoate 100 1 inh inhalation DAILY #30 ea 06/30/24 mcg/actuation blister powder for inhalation (Arnuity Ellipta) pantoprazole 40 mg tablet,delayed 40 mg PO BID #180 tabs 10/19/24 release polyethylene glycol 3350 17 17 g PO DAILY #510 grams 10/19/24 gram/dose oral powder (Miralax) ondansetron 4 mg disintegrating 4 mg PO Q8H PRN nausea and 11/11/24 tablet vomiting #4 tabs sucralfate 100 mg/mL oral 7.5 ml PO QID 7 days #210 mL 11/11/24 suspension (Carafate) Allergies Allergy/AdvReac Type Severity Reaction Status Date / Time dog dander (dogs) Allergy Facial Verified 11/11/24 10:25 Swelling Review of Systems Constitutional: Reports as per [facility] Past Medical History Medical History (Updated 11/11/24 @ 12:11 by Israel York DO) Gastritis Allergic rhinitis Opioid abuse Opioid dependence Family history of colon cancer Drug-seeking behavior PTSD (post-traumatic stress disorder) Anxiety and depression Blood in stool Chronic sinusitis Constipation Hyperglycemia Right ankle pain Asthma Surgical History History of sinus surgery History of ankle surgery Family History Family History Father Diabetes Paternal Grandmother Anal cancer Diabetes Paternal Grandfather Diabetes Other FH: mental illness Social History Social History (Updated 10/19/24 @ 11:05 by Palmira Kurtz MA) Housing: Apartment Alcohol intake: never Patient Tobacco Use Status: Current everyday Tobacco user Years Smoked: 6 Smoked in Last 30 Days: Yes e-Cigarette/Vaping Use: Currently Using Second Hand Smoke Exposure: No Use of substances other than those prescribed or required for medical reasons: No Substance Use Type: Painkillers Advance Directives: No Advance Directives Information Provided: No Do you have a plan to hurt others: No Plan service: No Current occupational status: employed and unemployed 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 [employer] Current occupational exposures/hazards: No Cognitive needs: No Hearing needs: No Vision needs: No Physical Exam ED Vital Signs: Vital Signs - 24 hr 11/11/24 10:18 Temperature 98.2 F Pulse Rate 108 H Respiratory Rate 18 Blood Pressure 137/82 Pulse Oximetry 99 Oxygen Delivery Method Room Air BMI result Body Mass Index 29.3 Const Other: Gen: ?Young male, somewhat aloof appearing HEENT: PERRLA, EOMI, MMM, CV: RRR, no obvious murmurs appreciated Resp: ?No wheezing rales rhonchi no stridor moving air well Abd: ?Bowel sounds are present, minimal epigastric tenderness no rebound or rigidity MSK: FROM, strength 5/5 all extremities Skin: Warm, dry, intact, Neuro: ?Alert and oriented x3, moving upper and lower extremities symmetrically, no obvious facial asymmetry noted Medical Decision Making Medical Decision Making MDM Narrative: Patient's [facility] admission reviewed he was admitted on 10/24/2024 discharged on the , he was admitted mostly for reports of dizziness and presyncope, his vital signs were stable, blood work without any evidence for dehydration, he has prior head CT of the abdomen and pelvis, he has had EGD that showed gastritis duodenitis, he has had HIDA scan in the past, addiction medicine was consulted there as well, he was restarted on methadone, patient has fairly reassuring physical examination except for epigastric tenderness which is consistent with his prior history negative Domingo's sign no tenderness in the lower quadrants to suspect appendicitis or diverticulitis or SBO necessitating further imaging such as CT, we will start off with blood work, and oral medications, given his prior history of admission, multiple bounds backs, I will hold off any interventions unless clinically indicated. Differential Diagnosis Differential Diagnoses: The differential diagnosis associated with the presentation includes (Cholecystitis, pancreatitis, hepatitis, gastritis, cholangitis, choledocholithiasis, SBO, ACS) Admission/Observation Consideration of admission/observation: Escalation of care including admission/observation considered 2022 Emergency Medicine Coding Guide from [employer] on 11/11/2024 All calculations should be rechecked by clinician prior to use RESULT SUMMARY: 5 Estimated Level of Service Problems: Moderate (4) Risk: High (5) Data: Extensive (5) NARRATIVE MDM: This patient's problem complexity is Moderate as patient: with chronic illness(es) with exacerbation/progression/side effects of treatment. This patient's risk is High due to: overall presentation requiring evaluation for a potentially High-risk process. This patient's data complexity is Extensive due to: -multiple tests ordered -external notes reviewed -independent interpretation of imaging or EKG INPUTS: Number and Complexity ?> 3 = 4: chronic illness with exacerbation (c) Risk level ?> 4 = High Tests ordered ?> 3 = >= Tests results reviewed (excluding labs) ?> 1 = 1 Prior external notes reviewed ?> 2 = 2 Assessment requiring and independent historian ?> 0 = No Independent interpretation of tests ?> 1 = Yes Discussed management/test interpretation w/external professional ?> 0 = No Lab Data MDM Lab Attestation statement: I reviewed the patient's lab results. 11/11/24 11:30 11/11/24 11:30 Labs: Lab Results 11/11/24 Range/Units 11:30 WBC 9.8 (4.8-10.8) X10*3/uL RBC 4.63 (4.60-5.80) X10*6/uL Hgb 13.2 L (14.0-18.0) g/dl Hct 38.7 L (42.0-52.0) % MCV 83.6 (80.0-98.0) fL MCH 28.5 (27.0-33.0) pg MCHC 34.1 (31.0-36.0) g/dl RDW 12.6 (11.0-16.0) % Plt Count 284 (160-400) X10*3/uL MPV 9.8 (9.4-12.4) fL Immature Gran % (Auto) 0.9 H (0.0-0.4) % Neut % (Auto) 78.3 H (45-73) % Lymph % (Auto) 10.1 L (20-40) % [place] % (Auto) 10.3 (2-11) % Eos % (Auto) 0.1 (0-4) % Baso % (Auto) 0.3 (0-2) % Lymph # (Auto) 1.0 L (1.2-4.9) X10*3/uL [place] # (Auto) 1.0 (0.1-1.2) X10*3/uL Eos # (Auto) 0.0 (0.0-0.4) X10*3/uL Baso # (Auto) 0.0 (0.0-0.2) X10*3/uL Abs Immat Gran (auto) 0.09 H (0.00-0.03) X10*3/uL Absolute Neuts (auto) 7.7 (2.0-8.3) x10*3/uL Absolute Nucleated RBC 0.000 (0.0-0.012) X10*3/uL Nucleated RBC % (auto) 0.0 (0.0-0.2) /100WBC Sodium 139 (135-145) mmol/L Potassium 4.0 (3.3-5.1) mmol/L Chloride 106 (96-108) mmol/L Carbon Dioxide 24 (22-29) mmol/L Anion Gap 13 (12-20) BUN 13 (9-16) mg/dL Creatinine 0.86 (0.5-1.4) mg/dL Estim Creat Clear Calc 140.2 Estimated GFR > 60 Random Glucose 118 H (60-115) mg/dL Calcium 9.4 (8.4-10.2) mg/dL Total Bilirubin 0.3 (0.0-1.0) mg/dL AST 20 (5-37) U/L ALT 18 (0-40) U/L Alkaline Phosphatase 81 (39-117) U/L Total Protein 7.2 (6.5-8.0) g/dL Albumin 4.6 (3.5-5.0) g/dL Lipase 23 (8-78) U/L Beta-Hydroxybutyrate 0.09 (0.02-0.27) mmol/L Independent Interpretation I performed an independent interpretation of an: EKG (75 bpm, otherwise normal ECG without dysrhythmia, AV magno blocks or ST-T changes to suspect underlying ACS, my independent interpretation) External Record Review External record reviewed: Inpatient record, Prior outpatient labs, Prior outpatient radiology and Outside ED record Tests considered The following testing was considered but not selected: CT abdomen and pelvis Prescription Management I considered prescription management with: Pain Medication Social Determinants Patient?s care significantly limited by Social Determinants of Health including: Other Social Determinant of Health (Substance use disorder) Medications Administered Discontinued Medications Generic Name Dose Route Start Last Admin Trade Name Freq PRN Reason Stop Dose Admin Belladonna Alkaloids/Phenobarbital 10 ml 11/11/24 10:37 11/11/24 11:14 Phenobarb/Hyoscy/Atropine/Scop 10 Ml Elixir PO 11/11/24 10:38 10 ml ONCE ONE Administration Ondansetron HCl 4 mg 11/11/24 10:37 11/11/24 10:46 Ondansetron Odt 4 Mg Tab.Alexsandradis TRANSLINGU 11/11/24 10:38 4 mg ONCE ONE Administration Sucralfate 1 gm 11/11/24 10:37 11/11/24 11:14 Sucralfate Oral Suspension 1 Gm/10 Ml Oral.Susp PO 11/11/24 10:38 1 gm ONCE ONE Administration Discharge Plan Discharge Clinical Impression: Epigastric abdominal pain Gastritis Qualifiers: Gastritis type: other gastritis Chronicity: chronic Gastritis bleeding: without bleeding Qualified Code(s): K29.50 - Unspecified chronic gastritis without bleeding Patient Disposition: Home, Self-Care Additional Instructions: Your blood work does not reveal any evidence for dehydration infection or significant anemia I am going to start her medication called Carafate take it with meals and then you can take your medications as well You can use Zofran as needed for nausea and vomiting at home continue with the omeprazole I recommend that you get in touch with the PCP and make sure that you have a gastroenterology follow up appointment I reviewed your recent admission and workup you have had at [facility] Prescriptions: New sucralfate [Carafate] 100 mg/mL suspension 7.5 ml PO QID 7 Days Qty: 210 0RF Rx Instructions: swish in mouth and swallow; use after food/drink ondansetron 4 mg tablet,disintegrating 4 mg PO Q8H PRN (Reason: nausea and vomiting) Qty: 4 0RF No Action Arnuity Ellipta 100 mcg/actuation blister with device 1 inh inhalation DAILY Qty: 30 5RF Rx Instructions: Replaces Pulmicort. Pulmicort not covered by insurance. acetaminophen [Tylenol] 325 mg capsule 325 mg PO QID PRN (Reason: pain) Qty: 30 0RF sucralfate 1 gram tablet 1 g PO ONCE Rx Instructions: 4x's a day pantoprazole 40 mg tablet,delayed release (DR/EC) 40 mg PO BID Qty: 180 0RF polyethylene glycol 3350 [Miralax] 17 gram/dose powder 17 g PO DAILY Qty: 510 5RF methadone 10 mg/5 mL solution 100 mg PO DAILY Rx Instructions: 100mg in the am and 40mg in pm trazodone 50 mg tablet 50 - 100 mg PO BEDTIME PRN (Reason: insomnia) Pulmicort Flexhaler 180 mcg/actuation aerosol powdr breath activated 1 inh inhalation BID Qty: 1 3RF Rx Instructions: Gargle and rinse mouth after use Flonase Sensimist 27.5 mcg/actuation spray,suspension 2 spray intranasal DAILY Qty: 5.9 3RF Rx Instructions: into each nostril albuterol sulfate [Ventolin HFA] 90 mcg/actuation HFA aerosol inhaler 2 puff inhalation Q4-6H PRN (Reason: shortness of breath or wheezing) Qty: 8.5 3RF lamotrigine 100 mg tablet 100 mg PO DAILY trazodone 100 mg tablet 200 mg PO BEDTIME PRN hydroxyzine pamoate 50 mg capsule 50 mg PO TID clonazepam 0.5 mg tablet PO Print Language: Armenian
--- NOTE | 2024-11-11 10:58 | ECG_ITS ---
Test Reason : ABD PAIN Blood Pressure : */* mmHG Vent. Rate : 75 BPM Atrial Rate : 75 BPM P-R Int : 148 ms QRS Dur : 86 ms QT Int : 384 ms P-R-T Axes : 58 65 30 degrees QTcB Int : 428 ms Normal sinus rhythm Normal ECG When compared with ECG of 24-Aug-2023 09:01, No significant change was found Referred By: Israel York Electronically Signed By: Rene Mina
--- OUTSIDE RECORDS SUMMARY | 2024-11-11 11:05 | XMS_ITS | Clinical Summary ---
Author Organization [facility] Address [address] [place] [address] Phone Care Team Providers Care Tube Handler Name Role Phone Lina Crews Primary Care [...] file Insurance MEDICARE PART A & B [facility] MEDIC[facility] PART A & [facility] B [facility] MEDICARE PART A & B [place] MED[place] PART A & [facility] B [facility] Care Teams Tube Handler Relationship Specialty Start Date End Date Lina Crews PA PCP - General Physician Coding Specialist 05/04/24 Additional Source Comments The information contained in this document represents components of the legal health record. It is not the complete legal health record.[facility]
[2024-11-11] MEDS: PHENobarb/Hyoscy/Atropine/Scop 10 ML ELIXIR PO (11:14)
[2024-11-11] MEDS: Sucralfate Oral Suspension 1 GM/10 ML ORAL.SUSP PO (11:14)
[2024-11-11 11:33] LABS: MANUAL DIFF FLAG NO
[2024-11-11 11:36] LABS: Hematocrit 38.7 % (42.0-52.0); Hemoglobin 13.2 g/dl (14.0-18.0); Imm Gran Abs Auto 0.09 X10*3/uL (0.00-0.03); Imm Gran Pct Auto 0.9 % (0.0-0.4); Lymphocytes Absolute Auto 1.0 X10*3/uL (1.2-4.9); Mean Corpuscular HGB Conc 34.1 g/dl (31.0-36.0); Mean Corpuscular Hemoglobin 28.5 pg (27.0-33.0); Mean Corpuscular Volume 83.6 fL (80.0-98.0); NRBC Abs Auto 0.000 X10*3/uL (0.0-0.012); NRBC Pct Auto 0.0 /100WBC (0.0-0.2); Platelet Count 284 X10*3/uL (160-400); Red Blood Count 4.63 X10*6/uL (4.60-5.80); White Blood Count 9.8 X10*3/uL (4.8-10.8)
[2024-11-11 11:50] LABS: Alanine Aminotransferase 18 U/L (0-40); Albumin Level 4.6 g/dL (3.5-5.0); Alkaline Phosphatase 81 U/L (39-117); Anion Gap 13 (12-20); Aspartate Amino Transferase 20 U/L (5-37); Blood Urea Nitrogen 13 mg/dL (9-16); Calcium 9.4 mg/dL (8.4-10.2); Carbon Dioxide 24 mmol/L (22-29); Chloride 106 mmol/L (96-108); Creatinine Clr Calc Pharmacy 140.2; Estimated Glomerular Filt Rate > 60; Lipase 23 U/L (8-78); Potassium 4.0 mmol/L (3.3-5.1); Sodium 139 mmol/L (135-145); Total Protein 7.2 g/dL (6.5-8.0)
[2024-11-11 12:42] VITALS: BP 144/74; PULSE 76; RESP 18; TEMP 36.6; O2SAT 99
== END 2024-11-11 12:43 | disposition home or self-care (01) ==
PROVIDERS: Emergency Provider Emergency Medicine; PCP Physician Assistant Medical
DX: R10.13 Epigastric pain (principal); R11.2 Nausea with vomiting, unspecified; F11.20 Opioid dependence, uncomplicated; F41.9 Anxiety disorder, unspecified; F32.A Depression, unspecified; K59.00 Constipation, unspecified; J45.909 Unspecified asthma, uncomplicated; M25.571 Pain in right ankle and joints of right foot; F17.290 Nicotine dependence, other tobacco product, uncomplicated
CPT/HCPCS: 36415; 80053; 82010; 83690; 85025; 93005; 99284

== ENCOUNTER → 2024-11-11 10:58 | Outpatient (BNV) | payer MEDICARE, MEDICAID, SELFPAY | PROVIDERS: Emergency Provider Emergency Medicine; PCP Physician Assistant Medical; Visit Provider Internal Medicine Cardiovascular Disease | DX: R10.13 Epigastric pain (principal) | CPT/HCPCS: 93010 ==